=== PATIENT | male | born 1955 | race Caucasian/White ===

== ENCOUNTER 2019-10-12 13:27 | Outpatient (CLI) | payer BC, SELFPAY ==
--- NOTE | 2019-10-12 13:43 | XR_ITS ---
WS: [id number] Chest 2 views, 10/12/2019 Clinical Data: COPD Comparison: PA and lateral chest, 04/28/2018. Findings: No nodules, masses or effusions are seen. The heart is normal. The pulmonary vascularity is not increased. No pneumonia or pneumothorax is seen. There is an azygos lobe of the lung as an incid ental finding. The aortic arch and descending aorta show tortuosity and calcification. XR/XR chest 2V* [id number] Impression: Atherosclerosis.
== END 2019-10-12 13:28 | disposition home or self-care (01) ==
LOC: RAD 13:40
PROVIDERS: Family Provider Family Medicine; PCP Family Medicine; Visit Provider Nurse Practitioner
DX: J44.9 Chronic obstructive pulmonary disease, unspecified (principal)
CPT/HCPCS: 71046

== ENCOUNTER 2020-06-20 13:27 | Outpatient (CLI) | payer BC, SELFPAY ==
--- NOTE | 2020-06-20 13:35 | XR_ITS ---
WS: [id number] Exam: XR chest 2V* [id number] Date/Time of Exam: 06/20/2020 1:37 PM Reason For Exam: COPD Comparison 10/12/2019. The lungs are hyperinflated and clear. Cardiomediastinal structures are unremarkable. Atherosclerotic plaquing of the thoracic aorta. No pleural effusions. Regional bony elements are intact. XR/XR chest 2V* [id number] IMPRESSION: 1. No acute cardiopulmonary finding. 2. Pulmonary hyperinflation which might indicate obstructive lung disease.
== END 2020-06-20 13:28 | disposition home or self-care (01) ==
PROVIDERS: PCP Family Medicine; Visit Provider Nurse Practitioner
DX: J44.1 Chronic obstructive pulmonary disease with (acute) exacerbation (principal)
CPT/HCPCS: 71046

== ENCOUNTER → 2020-11-14 16:05 | Outpatient (BNVA) | payer BC, SELFPAY | PROVIDERS: PCP Family Medicine; Visit Provider Surgery | DX: Z12.11 Encounter for screening for malignant neoplasm of colon (principal); Z11.52 Encounter for screening for COVID-19 | CPT/HCPCS: 87635 ==

== ENCOUNTER 2020-11-21 06:07 | Day surgery (SDC) | payer MEDICARE, SELFPAY ==
[2020-11-18 10:33] VITALS: BMI 27.1
[2020-11-21 06:15] VITALS: BP 183/94; PULSE 67; RESP 18; TEMP 36.1; O2SAT 96
[2020-11-21] MEDS: sodium chloride 0.9% 1,000 ML 30 ML IV (06:34)
--- NOTE | 2020-11-21 06:37 | ANES.PREANE2 ---
Pre-Anesthetic Assessment Pre-Anesthetic Assessment: Height/Weight: Height 1.83 m Weight 90.718 kg Temp Pulse Resp BP Pulse Ox 97.0 F L 67 18 183/94 96 11/21/20 06:15 11/21/20 06:15 11/21/20 06:15 11/21/20 06:15 11/21/20 06:15 Preop Diagnosis: SCREENING COLONOSCOPY Proposed Procedure: Operation Date: 11/21/20 07:00 Proposed Procedures p Colonoscopy 88713 z12.11(Not Applicable) - Clyde Barr MD Last intake: Intake Last Liquid Date 11/20/20 Last Liquid Time 23:00 Last Solid Date 11/19/20 Last Solid Time 19:00 Social: Social History: No alcohol and No tobacco Exam: Pre-Anes Outpt Exam: alert and oriented x 3 Airway: Submandibular: WNL Cervical ROM: WNL MP: 1 Additional comments: edentulous Pulmonary: Pulmonary: COPD, FELIX and SOB CV/HEM: CV/HEM: HTN : : Chronic renal Insufficiency Hepatic: Hepatic: None reported GI: GI: GERD Metabolic: Metabolic: None reported Musc/skel: Musc/skel: Lower Back Pain, OA/DJD and RA Neuropsych: Neuropsych: Anxiety Anesthetic Plan: ASA status: 3 Anesthesia: Anesthesia Evaluation and MAC Risk of > 500 ml blood loss (7ml/kg in children): No Meds/Allergies Current Medications: Current Medications Generic Name Dose Route Start Last Admin Trade Name Freq PRN Reason Stop Dose Admin Sodium Chloride 1,000 mls @ 30 ml s/hr 11/21/20 06:15 11/21/20 06:34 Sodium Chloride 0.9% IV 30 mls/hr .Q24H PRACHI Administration Data Anesthesia Cardiac Studies: No Data to Display
--- NOTE | 2020-11-21 06:48 | W.PM.OPSFHP ---
Same Day Surgery H&P Indication for Procedure/HPI DATE OF PROCEDURE: November 21, 2020 CHIEF COMPLAINT/INDICATIONFOR SURGICAL PROCEDURE: Screening Colonoscopy PREOP DIAGNOSIS: SCREENING COLONOSCOPY PLANNED PROCEDRUE: Operation Date: 11/21/20 07:00 Proposed Procedures p Colonoscopy 71630 z12.11(Not Applicable) - Clyde Barr MD This is a pleasant 65 years old gentleman well-known from previous clinical encounter to me. Patient last colonoscopy was done back in 2009 and was reported as normal per his description and he comes today as a referral for screening colonoscopy. Patient denies any bleeding per rectum and he had lost about 25 pounds since last time I have seen him. ROS All systems have been reviewed negative except as per the above or per problem list Medications/Allergies* Home Medications Medication Instructions Recorded Confirmed Type albuterol sulfate 90 mcg/actuation 1 inh INHALATION QID 10/28/20 11/18/20 History aerosol inhaler cyclobenzaprine 10 mg tablet 10 mg PO TID 10/28/20 11/18/20 History fluticasone 500 mcg-salmeterol 50 1 inh INHALATION BID 10/28/20 11/18/20 History mcg/dose blistr powdr for inhalation gabapentin 300 mg capsule 300 mg PO BID 10/28/20 11/18/20 History hydrocodone 10 mg-acetaminophen 1 tab PO Q6H PRN 10/28/20 11/18/20 History 325 mg tablet omeprazole 20 mg capsule,delayed 20 mg PO DAILY 10/28/20 11/18/20 History release tamsulosin 0.4 mg capsule 0.8 mg PO DAILY cap 10/28/20 11/18/20 History Allergies/Adverse Reactions Allergy/AdvReac Type Severity Reaction Status Date / Time aspirin Allergy Unknown Verified 11/21/20 06:55 cefuroxime [From Ceftin] Allergy Unknown Verified 11/21/20 06:55 Penicillins Allergy Unknown Verified 11/21/20 06:55 Current Medications: Generic Name Dose Route Start Last Admin Trade Name Freq PRN Reason Stop Dose Admin Sodium Chloride 1,000 mls @ 30 mls/hr 11/21/20 06:15 11/21/20 06:34 Sodium Chloride 0.9% IV 30 mls/hr .Q24H PRACHI Administration Pertinent Exam Findings alert, oriented x 3, clear to auscultation bilaterally, regular rate & rhythm and procedure specific exam findings (Abdominal examination nontender nondistended soft and presence of umbilical) Presence of umbilical hernia Recommendations Surgery/Procedure today (Colonoscopy with possible biopsy and possible polypectomy) Other Plans: Plan of care; After thorough history and physical examination and reviewing the chart, plan to perform screening colonoscopy. I discussed with the patient in details the risks,benefits,alternatives and indications.The risk of aspiration, bleeding, soft tissue injury, perforation of the colon and other potential concomitant complications were explained to the patient in details,also the potential need for Laproscoy/Laparotomy to repair any related complications including but not limited to colectomy and or Closotomy.The patient understood this well and did agree to proceed. Rationale was carefully and clearly discussed with the patient.Appropriate informed consent have been reviewed and signed All questions have been answered and all concerns have been addressed to patient's satisfaction. Verbal and written Instructions were given to the patient for colonoscopy prep Coding Level of Care Code Acute [employer] for Yasemin Brandt
[2020-11-21 07:19] VITALS: BP 93/53; PULSE 66; RESP 18; TEMP 36.2; O2SAT 95
[2020-11-21 07:33] VITALS: BP 143/97; PULSE 59; RESP 18; O2SAT 97
--- NOTE | 2020-11-21 13:09 | ANE.PACU2 ---
Inpatient post-anesthesia follow up: Airway intact: Yes Vital signs: Temperature 97.2 F Pulse Rate 59 Respiratory Rate 18 Blood Pressure 143/97 Pulse Oximetry 97 Oxygen Delivery Me thod Room Air Oxygen Flow Rate Fraction of Inspir ed Oxygen Hydration adequate: Yes Nausea and vomiting: No Pain level: 1 Mental status: Baseline
== END 2020-11-21 07:48 | disposition home or self-care (01) ==
PROVIDERS: PCP Family Medicine; Visit Provider Surgery
PROC: 0DJD8ZZ Inspection of Lower Intestinal Tract, Via Natural or Artificial Opening Endoscopic (ICD-10-PCS; CPT 45378; principal; 2020-11-21 07:00)
DX: Z12.11 Encounter for screening for malignant neoplasm of colon (principal); K57.30 Diverticulosis of large intestine without perforation or abscess without bleeding; J44.9 Chronic obstructive pulmonary disease, unspecified; I10 Essential (primary) hypertension; F41.9 Anxiety disorder, unspecified; M06.9 Rheumatoid arthritis, unspecified
CPT/HCPCS: 45378; 96360; J2704; J7030

== ENCOUNTER 2021-05-26 08:32 | Outpatient (CLI) | payer MEDICARE, SELFPAY ==
--- NOTE | 2021-05-26 08:44 | USCV_ITS ---
Dejan Russel Age: 65 Gender: M : 1955 Exam Date: 05/26/2021 09:13 Ordering Phys: Alcira Guerra MD Technologist: Kylah Mullins Exam Location: [facility] [place]_ Indication: screening AAA HISTORY: Diameter (cm) AP x Transverse x Length Velocity (cm/s) Waveform Prox Aorta: 2.44 x 2.45 x 71.90 Mid Aorta: 2.23 x 2.11 x 71.10 Distal Aorta: 1.90 x 2.16 x 85.10 Right Iliac Prox: 1.09 x 0.97 x 123.40 Left Iliac Prox: 0.97 x 0.94 x 178.80 Stent Prox Landing x x Aneurysmal Sac Max x x Lt Lat Sac Dim Rt Lat Sac Dim Stent Dist Landing x x Right Iliac Stent x x Left Iliac Stent x x Right Renal Art Left Renal Art FINDINGS: Normal Doppler flow velocities in the abdominal aorta Moderate heterogeneous plaques in the left common iliac artery. CONCLUSIONS #1. Normal abdominal aortic dimensions with no evidence of aneurysm. #2. Moderate heterogeneous plaques at the left common iliac artery with less than 60% stenosis. Dr Hermelinda Malik MD [facility] (Electronically Signed) Final Date: 27 May 2021 08:46 S
== END 2021-05-26 08:33 | disposition home or self-care (01) ==
LOC: RAD 08:37
PROVIDERS: PCP Family Medicine; Visit Provider Family Medicine
DX: Z13.6 Encounter for screening for cardiovascular disorders (principal); I70.8 Atherosclerosis of other arteries
CPT/HCPCS: 76706

== ENCOUNTER 2021-06-15 22:45 | Observation (INO) | payer MEDICARE, SELFPAY ==
[2021-06-15 22:51] VITALS: BP 164/84; PULSE 114; RESP 28; TEMP 37.5; O2SAT 92; BMI 29.8
--- NOTE | 2021-06-15 23:08 | XRR_ITS ---
PROCEDURE INFORMATION: Exam: XR Chest Exam date and time: 06/15/2021 11:08 PM Age: 65 years old Clinical indication: Shortness of breath; Patient HX: HX of copd C/O worsening SOB TECHNIQUE: Imaging protocol: XR of the chest. Views: 1 view. COMPARISON: CR XR chest 2V* [id number] 06/20/2020 1:41 PM FINDINGS: Lungs: There is a background of emphysema and pulmonary fibrosis. There are patchy opacities present in the right lower lobe, findings compatible with a right lower lobe pneumonia. Pleural spaces: Unremarkable. No pleural effusion. No pneumothorax. Heart/Mediastinum: Unremarkable. No cardiomegaly. Bones/joints: Unremarkable. XR/XR chest 1V portable [id number] IMPRESSION: Right lower lobe pneumonia. Radiation Dose CTDIVOL = (mGy): DLP = (mGy-cm)
--- NOTE | 2021-06-15 23:56 | ED_ITS ---
HPI - SOB/Dyspnea General: Chief Complaint: Shortness of Breath/Dyspnea Stated Complaint: COPD SOB Time Seen by Provider: 06/15/21 22:58 History of Present Illness: HPI Narrative: 65-year-old male with cough, fever, sputum production and chest pain increasing over the past couple of days. He has a history of COPD. Has had pneumonia before as well, and states it feels like this. He is a nebulizer treatment earlier in the evening which seemed to help some. He does not use home oxygen. MD elicited complaint: shortness of breath, cough and chest pain Pertinent past history: COPD and pneumonia Onset (ago): day(s) Timing: constant and progressively worsening Severity: moderate Exacerbating factors: lying flat, exertion and coughing Relieving factors: oxygen and bronchodilators Known history of: COPD Associated symptoms: Reports chest congestion, chest pain, cough, dizziness and fever(s); Deny abdominal pain, diaphoresis, hemoptysis, nausea, rash or vomiting Treatment prior to arrival: bronchodilator Review of Systems Const: Reports: fever(s); Denies: diaphoresis Card: Reports: chest pain Resp: Reports: chest congestion; Denies: hemoptysis GI: Denies: abdominal pain, nausea or vomiting Neuro: Reports: dizziness [facility] PFSH: Medical History (Updated 06/16/21 @ 02:09 by Tylor Carroll DO) Diverticulosis Physical Exam Const: COMMON NORMALS: patient oriented x3 and alert GENERAL APPEARANCE: ill appearing and frail appearing Eye: COMMON NORMALS: Equal, round and reactive pupils present and EOMs intact bilaterally PUPIL: Yes Equal, round and reactive pupils present Chest: COMMONS NORMALS: normal inspection of the chest Resp: EFFORT & INSPECTION: Yes tachypneic and Yes labored AUSCULTATION: rhonchi and diminished lung sounds Cardio: COMMON NORMALS: regular rhythm and Peripheral pulses 2+ throughout RATE: tachycardic RHYTHM: regular rhythm PERIPHERAL PULSES: Peripheral pulses 2+ throughout GI: COMMON NORMALS: Normal to inspection, nondistended, normoactive bowel sounds present and Soft to palpation PALPATION: Yes Soft to palpation Extremity: COMMON NORMALS: no pedal edema Neuro: COMMON NORMALS: patient oriented x3 SENSORIUM/ORIENTATION: Yes alert Course Consultations: Consultation #1: john Time: 02:06 Vital Signs: Vital signs: Vital Signs Temperature 99.5 F 06/15/21 22:51 Pulse Rate 109 H 06/16/21 00:00 Respiratory Rate 20 H 06/15/21 23:58 Blood Pressure 164/84 06/15/21 22:51 Pulse Oximetry 93 06/15/21 23:58 MDM - SOB/Dyspnea MDM Narrative: Medical decision making narrative: 65-year-old gentleman with cough sputum production fever and shortness of breath. He has a right lower lobe pneumonia on chest x-ray. White blood cell count of 15. Potassium is 3.3 and is repleted here. His creatinine is 1.9. No baseline historically for him here. He had a fever 103 at home. His COVID-19 rapid test is negative. PCR is pending. He evidently is allergic to Ceftin, and penicillins, and therefore received Levaquin in the ER after blood cultures. The patient is actually hypertensive, and with hypoxia, and an increased BNP, sepsis fluid bolus was not given due to concern of potential fluid overload. He will be admitted. D-dimer is 2. Unknown whether this could be pulmonary embolism versus elevation due to the pneumonia itself. Because of decreased renal function, holding on CTA for now. Lab Data: Labs: Lab Results 06/15/21 06/16/21 06/16/21 23:08 00:01 00:01 WBC 15.2 10^3/uL H 10 ^3/uL (4.0-10.0) RBC 4.17 10^6/uL 10^6 /uL (4.1-5.3) Hgb 12.9 g/dL g/dL (11.7-16.6) Hct 38.3 % L % (42.0-52.0) MCV 91.8 fl fl (80-94) MCH 30.9 pg pg (28.0-34.0) MCHC 33.7 g/dL g/dL (30.0-36.0) RDW 13.2 % % (12.1-15.1) Plt Count 229 10^3/cmm 10^3 /cmm (130-400) MPV 10.6 fL H fL (7.4-10.4) Neut % (Auto) 80.9 % % Lymph % (Auto) 7.1 % % [place] % (Auto) 10.8 % % Eos % (Auto) 0.1 % % Baso % (Auto) 0.5 % % Neut # (Auto) 12.29 10^3/uL H 1 0^3/uL (1.8-7.7) Lymph # (Auto) 1.1 10^3/uL 10^3/ uL (0.8-4.8) [place] # (Auto) 1.6 10^3/uL H 10^ 3/uL (0.2-0.9) Eos # (Auto) 0.0 10^3/uL 10^3/ uL (0.0-0.8) Baso # (Auto) 0.1 10^3/uL 10^3/ uL (0.0-0.1) Nucleated RBC % (a uto) 0 % % Nucleated RBCs # 0.0 /100WBC /100W BC D-Dimer 2.09 ug/mIFEU H u g/mIFEU (0-0.59) Specimen Type Arterial Sample Site Radial, left ABG pH 7.50 H (7.35-7.45) ABG pCO2 28.7 mmHg L mmHg (35-45) ABG pO2 60.2 mmHg L mmHg (80.0-100.0) ABG HCO3 22.4 mmol/L mmol/ L (22-26) ABG Base Excess 0.2 mmol/L mmol/L (-2.0-2.0) Wilber Test Pos Hematocrit 40.5 % L % (42-52) Hgb O2 Saturation 92.5 % L % (95-100) Carboxyhemoglobin 1.0 %THgb %THgb (0.4-20.1) Methemoglobin 1.1 % % (0.4-1.5) Total Hemoglobin 13.2 g/dL L g/dL (14-18) O2 Delivery Device Nc O2 Liters/Min 3.0 % % Political Science Instructor ID ellpe Sodium Potassium Chloride Carbon Dioxide Anion Gap BUN Creatinine GFR Calculation Glucose Calculated Osmolal ity Lactic Acid Calcium Total Bilirubin AST ALT Alkaline Phosphata se Troponin T Baselin e Troponin T 120 Min [place] Troponin T NT-Pro-B Natriuret Pep Total Protein Albumin Globulin SARS-CoV-2 Ag (Rap id) 06/16/21 06/16/21 06/16/21 00:01 00:01 00:01 WBC RBC Hgb Hct MCV MCH MCHC RDW Plt Count MPV Neut % (Auto) Lymph % (Auto) [place] % (Auto) Eos % (Auto) Baso % (Auto) Neut # (Auto) Lymph # (Auto) [place] # (Auto) Eos # (Auto) Baso # (Auto) Nucleated RBC % (a uto) Nucleated RBCs # D-Dimer Specimen Type Sample Site ABG pH ABG pCO2 ABG pO2 ABG HCO3 ABG Base Excess Wilber Test Hematocrit Hgb O2 Saturation Carboxyhemoglobin Methemoglobin Total Hemoglobin O2 Delivery Device O2 Liters/Min Political Science Instructor ID Sodium 139 mmol/L mmol/L (136-145) Potassium 3.3 mmol/L L mmol /L (3.5-5.1) Chloride 103 mmol/L mmol/L (98-107) Carbon Dioxide 21 mmol/L L mmol/ L (22-29) Anion Gap 18.3 (5-19) BUN 34 mg/dL H mg/dL (8-23) Creatinine 1.9 mg/dL H mg/dL (0.7-1.2) GFR Calculation 35.5 mL/min L mL/ min (90-130) Glucose 116 mg/dL H mg/dL (65-115) Calculated Osmolal ity 297 mOsm/kg H mOs m/kg (285-295) Lactic Acid 1.7 mmol/L mmol/L (0.5-2.2) Calcium 9.9 mg/dL mg/dL (8.5-10.5) Total Bilirubin 0.9 mg/dL mg/dL (0.15-1.2) AST 27 U/L U/L (0-40) ALT 20 U/L U/L (0-41) Alkaline Phosphata se 65 IU/L IU/L (40-130) Troponin T Baselin e 48 ng/L H ng/L (0-15) Troponin T 120 Min [place] Troponin T NT-Pro-B Natriuret Pep 1228 pg/mL H pg/m L (0-125) Total Protein 7.8 g/dL g/dL (6.6-8.7) Albumin 4.0 g/dL g/dL (3.5-5.2) Globulin 3.8 g/dL g/dL (1.3-4.6) SARS-CoV-2 Ag (Rap id) 06/16/21 06/16/21 00:20 01:30 WBC RBC Hgb Hct MCV MCH MCHC RDW Plt Count MPV Neut % (Auto) Lymph % (Auto) [place] % (Auto) Eos % (Auto) Baso % (Auto) Neut # (Auto) Lymph # (Auto) [place] # (Auto) Eos # (Auto) Baso # (Auto) Nucleated RBC % (a uto) Nucleated RBCs # D-Dimer Specimen Type Sample Site ABG pH ABG pCO2 ABG pO2 ABG HCO3 ABG Base Excess Wilber Test Hematocrit Hgb O2 Saturation Carboxyhemoglobin Methemoglobin Total Hemoglobin O2 Delivery Device O2 Liters/Min Political Science Instructor ID Sodium Potassium Chloride Carbon Dioxide Anion Gap BUN Creatinine GFR Calculation Glucose Calculated Osmolal ity Lactic Acid Calcium Total Bilirubin AST ALT Alkaline Phosphata se Troponin T Baselin e Troponin T 120 Min [place] 42.48 ng/L H ng/L (0-15) Delta Troponin T -5.52 ABS# L ABS# (0-10) NT-Pro-B Natriuret Pep Total Protein Albumin Globulin SARS-CoV-2 Ag (Rap id) Negative (Negative) Discharge Plan Discharge Patient Disposition: Admitted As Inpatient Clinical Impression: Community acquired pneumonia Qualifiers: Laterality: right Lung location: lower lobe of lung Qualified Code(s): J18.9 - Pneumonia, unspecified organism Respiratory failure with hypoxia Qualifiers: Chronicity: acute Qualified Code(s): J96.01 - Acute respiratory failure with hypoxia Condition: Fair Coding Level of Care Code ED [place] for [facility] Fwd Exam Detailed
[2021-06-15 23:58] VITALS: PULSE 113; RESP 20; O2SAT 93
[2021-06-15] MEDS: ipratropium-albuterol 3 mL Neb INHALATION (23:58)
[2021-06-16] VITALS (7 sets, daily range): BP systolic 141–181; BP diastolic 80–88; PULSE 91–109; RESP 17–24; TEMP 36.4–37.4; O2SAT 92–96
[2021-06-16 00:03] LABS: ABG PCO2 28.7 mmHg (35-45); Arterial Blood Gas Hematocrit 40.5 % (42-52); Base Excess ABG 0.2 mmol/L (-2.0-2.0); Blood Gas Allen Test Pos; Blood Gas Sample Site Radial, left; Blood Gas Sample Type Arterial; HCO3 ABG 22.4 mmol/L (22-26); HGB O2 Sat 92.5 % (95-100); Methemoglobin 1.1 % (0.4-1.5); Oxygen Device NC; PO2 ABG 60.2 mmHg (80.0-100.0); Total Hemoglobin 13.2 g/dL (14-18)
[2021-06-16] MEDS: ondansetron 2 mg/ML SDV 2 mL 4 MG IVP (00:16)
[2021-06-16 00:58] LABS: Basophils # 0.1 10^3/uL (0.0-0.1); Basophils % 0.5 %; Eosinophils % 0.1 %; Hematocrit 38.3 % (42.0-52.0); Hemoglobin 12.9 g/dL (11.7-16.6); Lymphocytes # 1.1 10^3/uL (0.8-4.8); Lymphocytes % 7.1 %; Mean Corpuscular HGB Conc 33.7 g/dL (30.0-36.0); Mean Corpuscular Hemoglobin 30.9 pg (28.0-34.0); Mean Corpuscular Volume 91.8 fl (80-94); Mean Platelet Volume 10.6 fL (7.4-10.4); Monocytes # 1.6 10^3/uL (0.2-0.9); Monocytes % 10.8 %; Neutrophils # 12.29 10^3/uL (1.8-7.7); Neutrophils % 80.9 %; Nucleated Red Blood Cells % 0 %; Platelet Count 229 10^3/cmm (130-400); Red Blood Count 4.17 10^6/uL (4.1-5.3); Red Cell Distribution Width 13.2 % (12.1-15.1); White Blood Count 15.2 10^3/uL (4.0-10.0)
[2021-06-16 01:07] LABS: D Dimer 2.09 ug/mIFEU (0-0.59)
[2021-06-16 01:09] LABS: Lactic Sepsis W/Reflex 1.7 mmol/L (0.5-2.2)
--- NOTE | 2021-06-16 01:09 | ECG_ITS ---
[facility] Test Date: 2021-06-16 Pat Name: Russel Wylie Department: Room: Gender: Male Floor Sander: : 1955 Requested By: Tylor Tracy Order Number: [id number] Ilene MD: Brittney Gomez M.D. Measurements Intervals [place] Rate: 116 P: 61 CO: 156 QRS: 65 QRSD: 79 T: 45 QT: 321 QTc: 446 Interpretive Statements SINUS TACHYCARDIA WITH OCCASIONAL SUPRAVENTRICULAR PREMATURE COMPLEXES NONSPECIFIC T-WAVE ABNORMALITY ABNORMAL RHYTHM ECG No previous ECG available for comparison Electronically Signed On 06-17-2021 12:59:22 LEAD INFRASTRUCTURE ARCHITECT by Brittney Gomez M.D. [email or web address]
[2021-06-16 01:10] LABS: SARS Covid-2 Antigen Negative (Negative)
[2021-06-16 01:11] LABS: Troponin(5th) Baseline 48 ng/L (0-15)
[2021-06-16] MEDS: morphine 4 mg/mL SDV 1 mL IVP (01:16)
[2021-06-16] MEDS: levofloxacin-dextrose 5 % 750 MG/150 ML PREMIX 100 MG IV (01:17)
[2021-06-16 01:20] LABS: Alanine Aminotransferase 20 U/L (0-41); Alkaline Phosphatase 65 IU/L (40-130); Anion Gap 18.3 (5-19); Aspartate Amino Transferase 27 U/L (0-40); Blood Urea Nitrogen 34 mg/dL (8-23); Calcium 9.9 mg/dL (8.5-10.5); Carbon Dioxide 21 mmol/L (22-29); Chloride 103 mmol/L (98-107); Globulin 3.8 g/dL (1.3-4.6); Glomerular Filtration Rate 35.5 mL/min (90-130); Glucose 116 mg/dL (65-115); NT Pro B Type Natriuretic Pept 1228 pg/mL (0-125); Osmolality Calculated 297 mOsm/kg (285-295); Potassium 3.3 mmol/L (3.5-5.1); Sodium 139 mmol/L (136-145); Total Bilirubin 0.9 mg/dL (0.15-1.2); Total Protein 7.8 g/dL (6.6-8.7)
[2021-06-16 02:11] LABS: Troponin 5 2HR 42.48 ng/L (0-15)
[2021-06-16 02:14] LABS: Troponin 5 2HR Delta -5.52 ABS# (0-10)
[2021-06-16] MEDS: sodium chloride 0.9% 1,000 ML 125 ML IV (04:07)
[2021-06-16] MEDS: HYDROcodone-acetaminophen 10-325 mg Tablet 1 TAB PO (04:07)
[2021-06-16 06:06] LABS: NT Pro B Type Natriuretic Pept 1741 pg/mL (0-125)
--- NOTE | 2021-06-16 06:40 | P.HP_ITS ---
Providers/Chief Complaint Admitting Physician: Ishan Osborn Primary Care Provider: Alcira Guerra MD Chief Complaint: COPD SOB History of Present Illness Russel Wylie is a 65 year old male with past medical history of COPD who is presenting with complaints of cough, productive with yellow mucus, shortness of breath, fever and chills. He reports pain in the right side of the chest when he coughs. The symptoms started 3 to 4 days ago. He reports similar symptoms several years ago when he was diagnosed with pneumonia. Today his chest x-ray reviewed right-sided pneumonia. He denies palpitations, dizziness or lightheadedness, nausea vomiting, abdominal pain, diarrhea. Review of Systems General: Reports: 10 or more systems reviewed and unremarkable except in HPI and below Medications/Allergies Home Medications Medication Instructions Recorded Confirmed Last Taken Type albuterol sulfate 90 mcg/actuation 1 inh INHALATION QID 10/28/20 06/16/21 06/15/21 History aerosol inhaler cyclobenzaprine 10 mg tablet 10 mg PO TID 10/28/20 06/16/21 06/15/21 History fluticasone 500 mcg-salmeterol 50 1 inh INHALATION BID 10/28/20 06/16/21 06/15/21 History mcg/dose blistr powdr for inhalation gabapentin 300 mg capsule 300 mg PO BID 10/28/20 06/16/21 06/15/21 History hydrocodone 10 mg-acetaminophen 1 tab PO Q6H PRN 10/28/20 06/16/21 06/15/21 History 325 mg tablet omeprazole 20 mg capsule,delayed 20 mg PO DAILY 10/28/20 06/16/21 06/15/21 History release tamsulosin 0.4 mg capsule 0.8 mg PO DAILY cap 10/28/20 06/16/21 06/15/21 History Allergies Allergy/AdvReac Type Severity Reaction Status Date / Time aspirin Allergy Unknown Verified 11/21/20 06:55 cefuroxime [From Ceftin] Allergy Unknown Verified 11/21/20 06:55 Penicillins Allergy Unknown Verified 11/21/20 06:55 PFSH Acute PFSH: Medical History (Updated 06/16/21 @ 06:43 by Ishan Osborn) Diverticulosis Vitals/I&O/Wt Last Vital Signs Temp 97.6 F 06/16/21 05:34 Pulse 99 06/16/21 05:34 Resp 17 06/16/21 05:34 BP 181/82 06/16/21 05:34 Pulse Ox 95 06/16/21 05:34 06/15/21 06/15/21 06/16/21 14:59 22:59 06:59 Intake Total 150 / 150 Balance 150 / 150 Weight last 48 hrs Weight 99.79 kg Weight 99.79 kg Physical Exam Narrative: EXAM NARRATIVE: The patient is awake alert oriented. No acute distress. Mood and affect are appropriate. Responses are adequate. Skin is warm and dry. Moist mucous memories Eyes PERRL, extraocular muscle intact Normal speech. Neck is supple. No JVD Lungs right-sided crackles. No wheezes. No respiratory distress Heart S1, S2, regular Abdomen soft, nontender, bowel sounds are present Extremities no edema cyanosis or calf tenderness bilaterally Neuro exam is nonfocal. Data : 06/16/21 00:01 06/16/21 00:01 Other Labs: Laboratory Results WBC 15.2 10^3/uL (4.0-10.0) H 06/16/21 00:01 RBC 4.17 10^6/uL (4.1-5.3) 06/16/21 00:01 Hgb 12.9 g/dL (11.7-16.6) 06/16/21 00:01 Hct 38.3 % (42.0-52.0) L 06/16/21 00:01 MCV 91.8 fl (80-94) 06/16/21 00:01 MCH 30.9 pg (28.0-34.0) 06/16/21 00:01 MCHC 33.7 g/dL (30.0-36.0) 06/16/21 00:01 RDW 13.2 % (12.1-15.1) 06/16/21 00:01 Plt Count 229 10^3/cmm (130-400) 06/16/21 00:01 MPV 10.6 fL (7.4-10.4) H 06/16/21 00:01 Neut % (Auto) 80.9 % 06/16/21 00:01 Lymph % (Auto) 7.1 % 06/16/21 00:01 [place] % (Auto) 10.8 % 06/16/21 00:01 Eos % (Auto) 0.1 % 06/16/21 00:01 Baso % (Auto) 0.5 % 06/16/21 00:01 Neut # (Auto) 12.29 10^3/uL (1.8-7.7) H 06/16/21 00:01 Lymph # (Auto) 1.1 10^3/uL (0.8-4.8) 06/16/21 00:01 [place] # (Auto) 1.6 10^3/uL (0.2-0.9) H 06/16/21 00:01 Eos # (Auto) 0.0 10^3/uL (0.0-0.8) 06/16/21 00:01 Baso # (Auto) 0.1 10^3/uL (0.0-0.1) 06/16/21 00:01 Nucleated RBC % (auto) 0 % 06/16/21 00:01 Nucleated RBCs # 0.0 /100WBC 06/16/21 00:01 D-Dimer 2.09 ug/mIFEU (0-0.59) H 06/16/21 00:01 Specimen Type Arterial 06/15/21 23:08 Sample Site Radial, left 06/15/21 23:08 ABG pH 7.50 (7.35-7.45) H 06/15/21 23:08 ABG pCO2 28.7 mmHg (35-45) L 06/15/21 23:08 ABG pO2 60.2 mmHg (80.0-100.0) L 06/15/21 23:08 ABG HCO3 22.4 mmol/L (22-26) 06/15/21 23:08 ABG Base Excess 0.2 mmol/L (-2.0-2.0) 06/15/21 23:08 Wilber Test Pos 06/15/21 23:08 Hematocrit 40.5 % (42-52) L 06/15/21 23:08 Hgb O2 Saturation 92.5 % (95-100) L 06/15/21 23:08 Carboxyhemoglobin 1.0 %THgb (0.4-20.1) 06/15/21 23:08 Methemoglobin 1.1 % (0.4-1.5) 06/15/21 23:08 Total Hemoglobin 13.2 g/dL (14-18) L 06/15/21 23:08 O2 Delivery Device Nc 06/15/21 23:08 O2 Liters/Min 3.0 % 06/15/21 23:08 Aviation Electronics Technician ID rigo 06/15/21 23:08 Sodium 139 mmol/L (136-145) 06/16/21 00:01 Potassium 3.3 mmol/L (3.5-5.1) L 06/16/21 00:01 Chloride 103 mmol/L (98-107) 06/16/21 00:01 Carbon Dioxide 21 mmol/L (22-29) L 06/16/21 00:01 Anion Gap 18.3 (5-19) 06/16/21 00:01 BUN 34 mg/dL (8-23) H 06/16/21 00:01 Creatinine 1.9 mg/dL (0.7-1.2) H 06/16/21 00:01 GFR Calculation 35.5 mL/min (90-130) L 06/16/21 00:01 Glucose 116 mg/dL (65-115) H 06/16/21 00:01 Calculated Osmolality 297 mOsm/kg (285-295) H 06/16/21 00:01 Lactic Acid 1.7 mmol/L (0.5-2.2) 06/16/21 00:01 Calcium 9.9 mg/dL (8.5-10.5) 06/16/21 00:01 Total Bilirubin 0.9 mg/dL (0.15-1.2) 06/16/21 00:01 AST 27 U/L (0-40) 06/16/21 00:01 ALT 20 U/L (0-41) 06/16/21 00:01 Alkaline Phosphatase 65 IU/L (40-130) 06/16/21 00:01 Troponin T Baseline 48 ng/L (0-15) H 06/16/21 00:01 Troponin T 120 Minute 42.48 ng/L (0-15) H 06/16/21 01:30 Delta Troponin T -5.52 ABS# (0-10) L 06/16/21 01:30 NT-Pro-B Natriuret Pep 1741 pg/mL (0-125) H 06/16/21 05:11 Total Protein 7.8 g/dL (6.6-8.7) 06/16/21 00:01 Albumin 4.0 g/dL (3.5-5.2) 06/16/21 00:01 Globulin 3.8 g/dL (1.3-4.6) 06/16/21 00:01 SARS-CoV-2 Ag (Rapid) Negative (Negative) 06/16/21 00:20 Impressions Chest X-Ray 06/15/21 23:08 IMPRESSION: Right lower lobe pneumonia. Radiation Dose CTDIVOL = (mGy): DLP = (mGy-cm) Micro: Microbiology 06/16/21 00:10 Blood Culture - Preliminary Blood SPECIMEN COLLECTED 06/16/21 00:01 Blood Culture - Preliminary Blood SPECIMEN COLLECTED A&P Assessment and plan (1) Community acquired pneumonia: Status: Acute Qualifiers: Laterality: right Lung location: lower lobe of lung Qualified Code(s): J18.9 - Pneumonia, unspecified organism (2) Respiratory failure with hypoxia: Status: Acute Qualifiers: Chronicity: acute Qualified Code(s): J96.01 - Acute respiratory failure with hypoxia (3) Hypertension: Status: Acute Additional A&P Information Hypoxia probably secondary to pneumonia on top of chronic emphysema. We will start the patient on Levaquin. He will receive respiratory treatments and supplemental oxygen. We will continue monitoring his CBC. Hypertension. Will order as needed labetalol. He might need initiation of maintenance therapy. Elevated BNP. Does not have history of CHF. Will monitor. Verbal order 2D echo. Elevated creatinine. He has history of CKD. Baseline is unknown. We will continue monitoring. Will avoid nephrotoxic medications. History of BPH. We will continue his home medication. History of GERD. We will continue his home medication. DVT prophylaxis. Heparin. CODE STATUS. He wants to be full code. The plan of care was discussed with the patient. He verbalized understanding and agreement. Attestations Medical Necessity Statement*: Based on my assessment of patient's current condition, diagnosis and plan of care I expect that the patient will spend more than 2 midnights in the hospital. Coding Level of Care Code Acute Cab Supervisor for Yasemin Brandt Diagnoses Community acquired pneumonia J18.9 Laterality: right Lung location: lower lobe of lung Respiratory failure with hypoxia J96.01 Chronicity: acute Hypertension I10
[2021-06-16 07:28] LABS: Troponin 5 6HR 22.75 ng/L (0-15)
--- NOTE | 2021-06-16 08:27 | PC.NURSE ---
Patient stated he did not want any of the medication from the hospital d/t cost. He cannot afford it. Stated he wants to go home.
[2021-06-16] MEDS: atenolol 50 mg Tablet 100 MG PO (11:33)
--- NOTE | 2021-06-16 13:22 | PM.DCS ---
Discharge Providers Date of Admission: 06/16/21 02:12 Date of Discharge: June 16, 2021 Attending Provider at Admission: Ishan Osborn Attending Provider at Discharge: Stewart Rodarte MD Primary Care Provider: Alcira Guerra MD Diagnoses at Discharge Discharge Diagnosis (1) Community acquired pneumonia: Status: Acute Qualifiers: Laterality: right Lung location: lower lobe of lung Qualified Code(s): J18.9 - Pneumonia, unspecified organism (2) Respiratory failure with hypoxia: Status: Acute Qualifiers: Chronicity: acute Qualified Code(s): J96.01 - Acute respiratory failure with hypoxia (3) Hypertension: Status: Acute Reason for Visit Reason for Visit: COPD SOB Hospital Course Hospital Course This is a 65-year-old male with a past medical history of COPD who presents [facility] due to shortness of breath, cough, fevers and chills Patient was admitted to [facility] for community-acquired pneumonia, right lower lobe pneumonia, with underlying emphysema, history of COPD, he received inpatient antibiotic treatment, not requiring oxygen during his hospitalization, however patient wanted to be discharged home. I advised patient that he would clinically benefit from another 24 hours of hospitalization for close monitoring, however patient adamantly declined, wanted to be discharged home. Discussed morbidity and mortality associated with pneumonia, acute respiratory failure, he voiced understanding, all questions answered, declined further admission. Discharged home on a prednisone burst, Levaquin, inhaler therapy, with close follow-up as outpatient with primary care During his hospitalization his rapid Covid was negative, Covid PCR was pending, advised to continue to self isolate, socially distance, until his Covid PCR comes back negative, he has not been vaccinated for COVID-19 No known history of CHF, denies chest pain, did have elevated BNP, has mild radiographic evidence of pulmonary edema, he refused Lasix, I have recommended cardiac echocardiogram, he has refused to stay in the hospital until it can be completed. Follow-up with primary care provider as outpatient for consideration of pursuing echocardiogram and evaluation of heart failure. Discussed morbidity mortality associated with delayed diagnosis, he voiced understanding, all questions answered, wanted to be discharged home. On admission patient was noted to have a creatinine 1.9, unknown underlying renal failure, I have advised of further work-up, patient is declined to stay as inpatient, advised to follow-up with primary care provider recheck renal function in 1 to 2 weeks Patient had elevated troponins during his hospitalization, no significant delta troponin, no complaints of chest pain complaints, EKG showing sinus tachycardia with nonspecific ST T wave changes, I have advised for further evaluation as inpatient, however patient has declined, and I advised of the risks associated, morbidity and mortality associated, he voiced understanding, declined intervention, discharge home, close follow-up with primary care provider as outpatient Physical Exam Const: COMMON NORMALS: no acute distress and patient oriented x3 Resp: COMMON NORMALS: normal respiratory effort, No retractions and No use of accessory muscles AUSCULTATION: wheezes Cardio: COMMON NORMALS: regular rate, regular rhythm, S1 normal heart sound present and S2 normal heart sound present RATE: regular rate RHYTHM: regular rhythm HEART SOUNDS: S1 normal heart sound present and S2 normal heart sound present GI: COMMON NORMALS: Normal to inspection, nondistended, normoactive bowel sounds present, Soft to palpation and non-tender PALPATION: Yes Soft to palpation Extremity: COMMON NORMALS: no pedal edema Neuro: COMMON NORMALS: patient oriented x3 Psych: COMMON NORMALS: mental status grossly normal Discharge Data Data Completed and Pending: Completed Studies During Hospitalization Category Date Time Status XR chest 1V michelle ble [id number] Urgent Exams 06/15/21 23:08 Completed Pending at discharge Category Date Time Status Basic Metabolic P jorge AM LABS Lab 06/17/21 04:00 Ordered Blood Culture Sta t Lab 06/15/21 23:08 Results Complete Blood Co unt w/Auto AM LABS Lab 06/17/21 04:00 Ordered Coronavirus Test [facility] Lab 06/16/21 00:20 Received Magnesium AM LABS Lab 06/17/21 04:00 Ordered Sputum Culture an d Gram Stain Stat Lab 06/15/21 23:08 Uncollected CV. echo complete * [id number] Routine Ultrasound 06/17/21 07:00 Ordered Labs from last 24 hours 06/16/21 06/16/21 06/16/21 06:56 05:11 01:30 WBC RBC Hgb Hct MCV MCH MCHC RDW Plt Count MPV Neut % (Auto) Lymph % (Auto) [place] % (Auto) Eos % (Auto) Baso % (Auto) Neut # (Auto) Lymph # (Auto) [place] # (Auto) Eos # (Auto) Baso # (Auto) Nucleated RBC % (a uto) Nucleated RBCs # D-Dimer Specimen Type Sample Site ABG pH ABG pCO2 ABG pO2 ABG HCO3 ABG Base Excess Wilber Test Hematocrit Hgb O2 Saturation Carboxyhemoglobin Methemoglobin Total Hemoglobin O2 Delivery Device O2 Liters/Min Wallpaper Consultant ID Sodium Potassium Chloride Carbon Dioxide Anion Gap BUN Creatinine GFR Calculation Glucose Calculated Osmolal ity Lactic Acid Calcium Total Bilirubin AST ALT Alkaline Phosphata se Troponin T Baselin e Troponin T 120 Min [place] 42.48 H Delta Troponin T -5.52 L Troponin T Hi Sens 6Hr 22.75 H Troponin T Hi Sens 6Hr Delta -25.25 L NT-Pro-B Natriuret Pep 1741 H Total Protein Albumin Globulin Nasal/Oral COVID-1 9 PCR SARS-CoV-2 Ag (Rap id) 06/16/21 06/16/21 06/16/21 00:20 00:20 00:01 WBC RBC Hgb Hct MCV MCH MCHC RDW Plt Count MPV Neut % (Auto) Lymph % (Auto) [place] % (Auto) Eos % (Auto) Baso % (Auto) Neut # (Auto) Lymph # (Auto) [place] # (Auto) Eos # (Auto) Baso # (Auto) Nucleated RBC % (a uto) Nucleated RBCs # D-Dimer Specimen Type Sample Site ABG pH ABG pCO2 ABG pO2 ABG HCO3 ABG Base Excess Wilber Test Hematocrit Hgb O2 Saturation Carboxyhemoglobin Methemoglobin Total Hemoglobin O2 Delivery Device O2 Liters/Min Wallpaper Consultant ID Sodium Potassium Chloride Carbon Dioxide Anion Gap BUN Creatinine GFR Calculation Glucose Calculated Osmolal ity Lactic Acid Calcium Total Bilirubin AST ALT Alkaline Phosphata se Troponin T Baselin e 48 H Troponin T 120 Min [place] Delta Troponin T Troponin T Hi Sens 6Hr Troponin T Hi Sens 6Hr Delta NT-Pro-B Natriuret Pep Total Protein Albumin Globulin Nasal/Oral COVID-1 9 PCR Pending SARS-CoV-2 Ag (Rap id) Negative 06/16/21 06/16/21 06/16/21 00:01 00:01 00:01 WBC RBC Hgb Hct MCV MCH MCHC RDW Plt Count MPV Neut % (Auto) Lymph % (Auto) [place] % (Auto) Eos % (Auto) Baso % (Auto) Neut # (Auto) Lymph # (Auto) [place] # (Auto) Eos # (Auto) Baso # (Auto) Nucleated RBC % (a uto) Nucleated RBCs # D-Dimer 2.09 H Specimen Type Sample Site ABG pH ABG pCO2 ABG pO2 ABG HCO3 ABG Base Excess Wilber Test Hematocrit Hgb O2 Saturation Carboxyhemoglobin Methemoglobin Total Hemoglobin O2 Delivery Device O2 Liters/Min Wallpaper Consultant ID Sodium 139 Potassium 3.3 L Chloride 103 Carbon Dioxide 21 L Anion Gap 18.3 BUN 34 H Creatinine 1.9 H GFR Calculation 35.5 L Glucose 116 H Calculated Osmolal ity 297 H Lactic Acid 1.7 Calcium 9.9 Total Bilirubin 0.9 AST 27 ALT 20 Alkaline Phosphata se 65 Troponin T Baselin e Troponin T 120 Min [place] Delta Troponin T Troponin T Hi Sens 6Hr Troponin T Hi Sens 6Hr Delta NT-Pro-B Natriuret Pep 1228 H Total Protein 7.8 Albumin 4.0 Globulin 3.8 Nasal/Oral COVID-1 9 PCR SARS-CoV-2 Ag (Rap id) 06/16/21 06/15/21 00:01 23:08 WBC 15.2 H RBC 4.17 Hgb 12.9 Hct 38.3 L MCV 91.8 MCH 30.9 MCHC 33.7 RDW 13.2 Plt Count 229 MPV 10.6 H Neut % (Auto) 80.9 Lymph % (Auto) 7.1 [place] % (Auto) 10.8 Eos % (Auto) 0.1 Baso % (Auto) 0.5 Neut # (Auto) 12.29 H Lymph # (Auto) 1.1 [place] # (Auto) 1.6 H Eos # (Auto) 0.0 Baso # (Auto) 0.1 Nucleated RBC % (a uto) 0 Nucleated RBCs # 0.0 D-Dimer Specimen Type Arterial Sample Site Radial, left ABG pH 7.50 H ABG pCO2 28.7 L ABG pO2 60.2 L ABG HCO3 22.4 ABG Base Excess 0.2 Wilber Test Pos Hematocrit 40.5 L Hgb O2 Saturation 92.5 L Carboxyhemoglobin 1.0 Methemoglobin 1.1 Total Hemoglobin 13.2 L O2 Delivery Device Nc O2 Liters/Min 3.0 Wallpaper Consultant ID ellpe Sodium Potassium Chloride Carbon Dioxide Anion Gap BUN Creatinine GFR Calculation Glucose Calculated Osmolal ity Lactic Acid Calcium Total Bilirubin AST ALT Alkaline Phosphata se Troponin T Baselin e Troponin T 120 Min [place] Delta Troponin T Troponin T Hi Sens 6Hr Troponin T Hi Sens 6Hr Delta NT-Pro-B Natriuret Pep Total Protein Albumin Globulin Nasal/Oral COVID-1 9 PCR SARS-CoV-2 Ag (Rap id) Vitals: Last Vital Signs Temp 98.2 F 06/16/21 12:00 Pulse 91 06/16/21 12:00 Resp 18 06/16/21 12:00 BP 178/88 06/16/21 12:00 Pulse Ox 93 06/16/21 12:00 Discharge Plan Discharge Patient Disposition: Home Condition: Stable Prescriptions: New albuterol sulfate 1.25 mg/3 mL solution for nebulization 1.25 mg inhalation Q6H PRN (Reason: shortness of breath or wheezing) Qty: 15 RF: 0 atenolol 50 mg Tablet 100 mg PO DAILY 30 Days Qty: 60 RF: 0 levofloxacin 750 mg tablet 750 mg PO DAILY 6 Days Qty: 6 RF: 0 prednisone 20 mg tablet 20 mg PO BID 5 Days Qty: 10 RF: 0 Continued fluticasone propion-salmeterol [Advair Diskus] 500-50 mcg/dose blister with device 1 inh inhalation BID RF: 0 cyclobenzaprine 10 mg tablet 10 mg PO TID RF: 0 gabapentin 300 mg capsule 300 mg PO BID RF: 0 hydrocodone-acetaminophen 10-325 mg tablet 1 tab PO Q6H PRN (Reason: Pain) RF: 0 omeprazole 20 mg capsule,delayed release(DR/EC) 20 mg PO DAILY RF: 0 albuterol sulfate [ProAir HFA] 90 mcg/actuation HFA aerosol inhaler 1 inh inhalation QID RF: 0 tamsulosin 0.4 mg capsule 0.8 mg PO DAILY RF: 0 Discharge Orders: Discharge Order (Routine); Ordered 06/16/21 Ordered By: Stewart Rodarte Referrals: Alcira Guerra MD [Primary Care Provider] - Discharge Diet: Cardiac Discharge Activity: Resume usual activity Patient Instructions: Opioid Safety Activity Restrictions/Additional Instructions: -We will give prednisone burst -Take Levaquin as prescribed -Take inhalers every 6 hours as needed for shortness of breath -Please follow-up with primary care provider Discharge Attestations Time Spent in Discharge Care*: less than 30 min Quality Metrics Clinical Quality Measures During this hospital stay, did patient experience: None Coding Level of Care Code Acute Chg FW DC note Diagnoses Community acquired pneumonia J18.9 Laterality: right Lung location: lower lobe of lung Respiratory failure with hypoxia J96.01 Chronicity: acute Hypertension I10
[2021-06-16 14:30] LABS: Coronavirus Test Green County Not Detected
--- NOTE | 2021-06-16 14:57 | PC.NURSE ---
IV removed intact. Patient tolerated well. Patient is A&Ox3. Respirations even and non-labored on room air. Patient updated that his COVIID test was negative. Reviewed patient discharge with patient at this time. Patient verbalized understanding of follow up appointments and the prescription antibiotics. Patient wheel chaired to private private car.
--- NOTE | 2021-06-19 16:30 | PC.SOCIAL ---
Addendum entered by Ivette Morel RN 06/20/21 11:59: Please note the Proair inhaler dose is as previously listed one inhalation QID. Original Note: Spoke with patient and he indicates he does not have enough of the nebulized solution to last until seen by Dr Abner Guerra and his ProAir inhaler is out of date. Called Dr Rodarte and asked if can call in another 7 days of albuterol solution to pharmacy and renew inhaler script. Verbal order given. Called Zbigniew at pharmacy and the 1.25mg/3ml is on back order but they can dispense the 2.50mg/3ml and have pt use 1/2 vial at a time. Order placed and they will have this ready prior to close. Called patient and updated him. Discussed to use half vial at a time. Pt verbalized understanding and was appreciative.
== END 2021-06-16 15:00 | disposition home or self-care (01) ==
LOC: ER 06-16 02:09 → MEDSURG 06-16 03:57
PROVIDERS: Admitting Provider Internal Medicine; Emergency Provider Emergency Medicine; PCP Family Medicine; Visit Provider Family Medicine
DX: J18.9 Pneumonia, unspecified organism (principal); J96.01 Acute respiratory failure with hypoxia; I10 Essential (primary) hypertension; N40.0 Benign prostatic hyperplasia without lower urinary tract symptoms; K21.9 Gastro-esophageal reflux disease without esophagitis; J43.9 Emphysema, unspecified
CPT/HCPCS: 36415; 36600; 71045; 80053; 82805; 83605; 83880; 84484; 85025; 85378; 87040; 87426; 87635; 93005; 94640; 96365; 96375; 96376; 99285; G0378; J1956; J2270; J2405; J2930; J7030

== ENCOUNTER 2021-07-28 14:43 | Outpatient (CLI) | payer MEDICARE, SELFPAY ==
--- NOTE | 2021-07-28 14:59 | XR_ITS ---
WS: [id number] Chest 2 views, 07/28/2021 Clinical Data: PNEUMONIA/DYSPNEA Comparison: None. Findings: No nodules, masses or effusions are seen. There is a residual patchy opacity in the right l ower lobe with probable posterior right pleural thickening. The heart is enlarged. The pulmonary vasc ularity is not increased. No pneumothorax is seen. There is an azygos lobe the lung. The aortic arch shows calcification and mild tortuosity. XR/XR chest 2V* [id number] Impression: 1. Almost total clearing of right patchy pulmonary opacity with the posterior r ight pleural residual. 2. Cardiomegaly and atherosclerosis.
== END 2021-07-28 14:44 | disposition home or self-care (01) ==
PROVIDERS: PCP Family Medicine; Visit Provider Family Medicine
DX: J18.9 Pneumonia, unspecified organism (principal); R06.00 Dyspnea, unspecified; I51.7 Cardiomegaly; I70.90 Unspecified atherosclerosis
CPT/HCPCS: 71046

== ENCOUNTER 2021-08-06 09:39 | Outpatient (CLI) | payer MEDICARE, SELFPAY ==
--- NOTE | 2021-08-06 | CT_ITS ---
WS: [id number] CTA OF THE CHEST WITH PULMONARY EMBOLISM PROTOCOL TECHNIQUE: High-resolution contrast enhanced CTA of the chest with coronal and sagittal reformatted i mages with pulmonary embolism protocol. MIP images are also reviewed. CLINICAL INFORMATION: PNEUMONIA, DYSPNEA COMPARISON: CT 2017 DLP: 822.[address] scans at [facility] use at least one of these dose optimization techniques: automated e xposure control; mA and/or kV adjustment per patient size (includes targeted exams where dose is matc hed to clinical indication); or iterative reconstruction. FINDINGS:Proximal main pulmonary arteries are normal. Normal segmental and subsegmental pulmonary art eries. No evidence of pulmonary embolus. Moderate chronic emphysematous changes. Azygos fissure right upper lobe. Slight hazy groundglass infi ltrates peripherally in both lungs more prominent in the upper lobes. Fibrotic appearing spiculated i nfiltrates in the lung bases. Recommend follow-up to resolution. Noncalcified nodule right upper lobe along the fissure measuring 3 mm. Normal caliber thoracic aorta. Aortic calcification. No mediastinal or hilar lymphadenopathy.Adrenal glands are normal. Normal GE junction. A few prominent lymph nodes in the upper abdomen largest measu ring 10-11 mm likely reactive. Hypertrophic changes thoracic spine. CT/CT angio chest PE protcl [id number] IMPRESSION: 1. No evidence of pulmonary embolus. 2. Moderate chronic emphysematous changes. 3. Hazy subpleural infiltrates more prominent in the mid lungs and upper lobes compatible with history of Covid 19 pneumonia. 4. Fibrotic appearing spiculated opacities in both lung bases measuring 2.5x1. 4 cm in the right and 2.3 x 1.0 cm left. Findings most likely infectious or inf lammatory. Recommend [address] follow-up after treatment to assess resol ution.
[2021-08-06 10:19] LABS: Blood Urea Nitrogen 21 mg/dL (8-23); Glomerular Filtration Rate 54.9 mL/min (90-130)
[2021-08-06] MEDS: iodixanol 320 mg/mL 100mL Btl IV (10:58)
== END 2021-08-06 09:40 | disposition home or self-care (01) ==
PROVIDERS: PCP Family Medicine; Visit Provider Family Medicine
DX: J18.9 Pneumonia, unspecified organism (principal); R06.00 Dyspnea, unspecified
CPT/HCPCS: 71275; 82565; 84520; Q9967

== ENCOUNTER → 2021-09-22 15:17 | Outpatient (BNVA) | payer MEDICARE, SELFPAY | PROVIDERS: PCP Family Medicine; Visit Provider Urology | DX: N40.1 Benign prostatic hyperplasia with lower urinary tract symptoms (principal) | CPT/HCPCS: 84153 ==

== ENCOUNTER 2021-09-23 16:59 | Outpatient (CLI) | payer MEDICARE, SELFPAY ==
--- NOTE | 2021-09-23 17:01 | XR_ITS ---
WS: [id number] Exam: XR chest 2V* [id number] Date/Time of Exam: 09/23/2021 5:14 PM Reason For Exam: pneumonia Comparison 07/28/2021. The lungs are hyperinflated and clear. Normal cardiomediastinal structures and regional bony elements . No pleural effusions. XR/XR chest 2V* [id number] IMPRESSION: 1. Pulmonary hyperinflation which may indicate obstructive lung disease. No acu te process noted.
== END 2021-09-23 17:00 | disposition home or self-care (01) ==
LOC: RAD 17:01
PROVIDERS: PCP Family Medicine; Visit Provider Internal Medicine Pulmonary Disease
DX: J18.9 Pneumonia, unspecified organism (principal)
CPT/HCPCS: 71046

== ENCOUNTER 2021-10-02 10:15 | Outpatient (CLI) | payer MEDICARE, SELFPAY ==
--- NOTE | 2021-10-02 10:27 | USCV_ITS ---
Russel Wylie Age: 66 Gender: M : 1955 Exam Date: 10/02/2021 10:41 Ordering Phys: Alcira Guerra MD Technologist: Farhana Ribeiro [place]am [place] [facility] [place]: Shortness of breath BP: 166 / 59 HR: 52 Rhythm: Sinus Technical Quality: Adequate MEASUREMENTS (Male / Female) Normal Values 2D ECHO LV Diastolic Diameter PLAX 5.1 cm 4.2 - 5.9 / 3.9 - 5.3 cm LV Systolic Diameter PLAX 3.1 cm LV Chamber Size 4.9 cm IVS Diastolic Thickness 1.0 cm 0.6 - 1.0 / 0.6 - 0.9 cm IVS Systolic Thickness 1.5 cm LVPW Diastolic Thickness 1.2 cm 0.6 - 1.0 / 0.6 - 0.9 cm LVPW Systolic Thickness 1.5 cm RV Chamber Size 3.9 cm LVOT Diameter 2.1 cm LV Ejection Fraction 2D Teich 69.0 % LV Ejection Fraction MOD 2C 49.7 % LV Ejection Fraction 2C AL 46.9 % LA Diameter 3.5 cm LA Width 3.4 cm LA Height 5.1 cm RA Width 5.0 cm Aorta at Sinotubular Diameter 2.9 cm M-MODE Aortic Annulus Diameter 3.7 cm LA Ao Ratio MM 1.0 MV E Point Septal Separation 0.7 cm DOPPLER AV Peak Velocity 100.0 cm/s LVOT Peak Velocity 100.0 cm/s AV Area Cont Eq vti 2.8 cm squared AV Area Cont Eq pk 3.3 cm squared MV Area PHT 2.5 cm squared Mitral E to A Ratio 0.8 MV E' Velocity 40.0 cm/s Mitral E to MV E' Ratio 9.4 Mitral E to LV E' Lateral Ratio 8.2 Mitral E to LV E' Septal Ratio 11.0 TR Peak Velocity 115.3 cm/s TR Peak Gradient 5.3 mmHg TR Mean Velocity 78.4 cm/s TR Mean Gradient 2.8 mmHg TR Velocity Time Integral 27.7 cm TV Peak E Velocity 54.0 cm/s Right Atrial Pressure 3.0 mmHg Pulmonary Artery Systolic Pressu 8.3 mmHg PV Peak Velocity 62.0 cm/s RV Acceleration Time 0.2 s RV Ejection Time 0.4 s RV AcT/ET 0.6 FINDINGS Left Ventricle Normal left ventricular size, systolic function and wall thickness, with no regional wall motion abnormalities. Left ventricular ejection fraction is estimated at 60 %. Normal diastolic function. Right Ventricle Normal right ventricular size and systolic function. Normal right ventricular systolic pressure. Right Atrium Normal right atrial size. Left Atrium Normal left atrial size. Mitral Valve Mild mitral annular calcification. Structurally normal mitral valve. No mitral valve stenosis. Trace mitral valve regurgitation. Aortic Valve Aortic valve not well visualized. Probably tricuspid aortic valve. No aortic valve stenosis. No aortic valve regurgitation. Tricuspid Valve Structurally normal tricuspid valve. No tricuspid valve stenosis. Trace tricuspid valve regurgitation. Pulmonic Valve Pulmonic valve not well visualized. Pericardium No pericardial effusion. Aorta Normal-sized aortic root. Normal sized inferior vena cava CONCLUSIONS 1. Normal left ventricular size, systolic function and wall thickness, with no regional wall motion abnormalities. Left ventricular ejection fraction is estimated at 60 %. Normal diastolic function. 2. Normal right ventricular size and systolic function. 3. No significant valvular abnormality. 4. No prior similar studies to compare. Brittney Gomez MD (Electronically Signed) Final Date: 02 October 2021 13:05 S
== END 2021-10-02 10:16 | disposition home or self-care (01) ==
PROVIDERS: PCP Family Medicine; Visit Provider Family Medicine
DX: R79.89 Other specified abnormal findings of blood chemistry (principal); R06.02 Shortness of breath; J18.9 Pneumonia, unspecified organism
CPT/HCPCS: 93306

== ENCOUNTER → 2021-11-27 10:48 | Outpatient (BNVA) | payer MEDICARE, SELFPAY | PROVIDERS: PCP Family Medicine; Visit Provider Internal Medicine | DX: B18.2 Chronic viral hepatitis C (principal) | CPT/HCPCS: 82105; 86705; 86706; 87340; 87522; 87902 ==

== ENCOUNTER 2022-01-09 07:06 | Outpatient (CLI) | payer MEDICARE, SELFPAY ==
--- NOTE | 2022-01-09 07:15 | US_ITS ---
WS: [id number] Exam: US liver [id number] Date/Time of Exam: 01/09/2022 7:15 AM Reason For Exam: Hep C There was no sign of hepatic mass or nodule. No intrahepatic ductal dilatation. The liver is mildly p rominent measuring 17.06 cm at greatest dimension. The gallbladder is unremarkable. The common bile d uct is not dilated and measures 3.2 mm at greatest diameter. The abdominal aorta was normal in calibe r. The IVC is patent. 1.5 cm right renal cyst is noted. The right kidney is otherwise unremarkable an d measures 9.9 x 5.43 x 5.8 cm. No free fluid or mass in the right abdomen. The pancreas is unremarka ble as visualized however some parts of the pancreas are obscured by bowel gas. US/US liver [id number] IMPRESSION: 1. No sign of hepatic mass or intrahepatic ductal dilatation. Mild hepatomegaly . 2. No other significant finding in the right abdomen. Small right renal cyst.
== END 2022-01-09 07:07 | disposition home or self-care (01) ==
LOC: RAD 07:07
PROVIDERS: PCP Family Medicine; Visit Provider Internal Medicine
DX: B18.2 Chronic viral hepatitis C (principal); R16.0 Hepatomegaly, not elsewhere classified
CPT/HCPCS: 76705

== ENCOUNTER → 2022-02-12 14:00 | Outpatient (BNVA) | payer MEDICARE, SELFPAY | PROVIDERS: PCP Family Medicine; Visit Provider Internal Medicine | DX: B19.20 Unspecified viral hepatitis C without hepatic coma (principal) | CPT/HCPCS: 87522 ==

== ENCOUNTER → 2022-04-08 12:55 | Outpatient (BNVA) | payer MEDICARE, SELFPAY | PROVIDERS: PCP Family Medicine; Visit Provider Otolaryngology | DX: H91.93 Unspecified hearing loss, bilateral (principal); H93.13 Tinnitus, bilateral | CPT/HCPCS: 99202; 99203 ==

== ENCOUNTER 2022-05-30 11:15 | Emergency (ER) | payer MEDICARE, SELFPAY ==
[2022-05-30 11:29] VITALS: BP 100/57; PULSE 71; RESP 16; TEMP 37.6; O2SAT 93; BMI 29.4
--- NOTE | 2022-05-30 11:59 | XRR_ITS ---
PROCEDURE INFORMATION: Exam: XR Chest Exam date and time: 05/30/2022 1:04 PM Age: 66 years old Clinical indication: Shortness of breath; Additional info: SOB TECHNIQUE: Imaging protocol: Radiologic exam of the chest. Views: 2 views. COMPARISON: CR XR chest 2V* [id number] 09/23/2021 5:11 PM FINDINGS: Lungs: Normal variant azygos lobe. Pleural spaces: Costophrenic angles are not completely visualized. No large pleural effusions. Heart/Mediastinum: Unremarkable. No cardiomegaly. Vasculature: There is calcified plaque in the aortic knob similar to the prior study. Bones/joints: Unremarkable. XR/XR chest 2V* [id number] IMPRESSION: No evidence for acute cardiopulmonary disease.
[2022-05-30 12:41] LABS: Basophils % 0.4 %; Eosinophils % 0.2 %; Hematocrit 37.8 % (42.0-52.0); Hemoglobin 12.9 g/dL (11.7-16.6); Lymphocytes # 1.2 10^3/uL (0.8-4.8); Mean Corpuscular HGB Conc 34.1 g/dL (30.0-36.0); Mean Corpuscular Hemoglobin 31.9 pg (28.0-34.0); Mean Corpuscular Volume 93.3 fl (80-94); Mean Platelet Volume 10.2 fL (7.4-10.4); Monocytes # 1.4 10^3/uL (0.2-0.9); Monocytes % 14.8 %; Neutrophils # 6.66 10^3/uL (1.8-7.7); Neutrophils % 71.2 %; Nucleated Red Blood Cells % 0 %; Platelet Count 173 10^3/cmm (130-400); Red Blood Count 4.05 10^6/uL (4.1-5.3); Red Cell Distribution Width 12.6 % (12.1-15.1); White Blood Count 9.4 10^3/uL (4.0-10.0)
[2022-05-30 12:51] VITALS: PULSE 71; RESP 18; O2SAT 98
[2022-05-30] MEDS: ipratropium-albuterol 3 mL Neb INHALATION (12:52)
[2022-05-30 12:55] VITALS: PULSE 67
[2022-05-30 12:56] LABS: Alanine Aminotransferase 9 U/L (0-41); Albumin Level 3.9 g/dL (3.5-5.2); Alkaline Phosphatase 50 U/L (40-130); Anion Gap 15.3 (5-19); Aspartate Amino Transferase 18 U/L (0-40); Blood Urea Nitrogen 28 mg/dL (8-23); Calcium 9.1 mg/dL (8.5-10.5); Carbon Dioxide 25 mmol/L (22-29); Chloride 99 mmol/L (98-107); Globulin 3.3 g/dL (1.3-4.6); Glomerular Filtration Rate 31.6 mL/min (90-130); Glucose 102 mg/dL (65-115); Magnesium 1.3 mg/dL (1.7-2.3); Osmolality Calculated 286 mOsm/kg (285-295); Potassium 4.3 mmol/L (3.5-5.1); Sodium 135 mmol/L (136-145); Total Bilirubin 0.4 mg/dL (0.15-1.2); Total Protein 7.2 g/dL (6.6-8.7)
--- NOTE | 2022-05-30 13:51 | W.ED.SOB ---
HPI - SOB/Dyspnea General: Chief Complaint: Shortness of Breath/Dyspnea Stated Complaint: SOB, congestion Time Seen by Provider: 05/30/22 11:56 History of Present Illness: HPI Narrative: 66-year-old male presents with shortness of breath. He reports has been going on for about 2 days. Patient has a history of COPD and reports he frequently gets pneumonia patient is concerned they may be get pneumonia. Patient is currently out of his nebulizer. Patient denies any fever, chills, nausea or vomiting. Patient denies any chest pain. He also complains of some congestion. Patient denies any other systemic complaints at this time. Associated symptoms: Deny abdominal pain, chest pain, dizziness, fever(s), lightheadedness, nausea, palpitations or vomiting Review of Systems Const: Denies: fever(s) or chills Eyes: Denies: change in vision ENMT: Reports: nasal congestion; Denies: throat pain Card: Denies: chest pain, palpitations or lightheadedness Resp: Reports: dyspnea and non-productive cough GI: Denies: abdominal pain, nausea or vomiting : Denies: difficulty urinating or urinary frequency Musc: Reports: other (No acute complaints) Skin/Breast: Denies: rash or pruritus Neuro: Denies: headache(s) or dizziness PFSH ED PFSH: Medical History Anemia BPH loc w urin obs/LUTS Chronic kidney disease Chronic renal insufficiency COPD (chronic obstructive pulmonary disease) Diverticulosis Elevated brain natriuretic peptide (BNP) level GERD (gastroesophageal reflux disease) Hepatitis C Rheumatoid arthritis Urolithiasis Surgical History H/O colonoscopy Family History Mother , at age 78 Cancer LUNG Father , at age 72 Cancer lung Social History Smoking and tobacco status: former smoker (quit smoking 5 years ago, smoked over 25 years ) Quit status (tobacco): has quit using tobacco Year quit tobacco: June, Former quit date comment: 1 ppd x40 years Alcohol intake: never Marital status: Current occupational status: retired History of recent travel: No Physical Exam Const: COMMON NORMALS: no acute distress, patient oriented x3 and no limitations Chest: COMMONS NORMALS: normal inspection of the chest Resp: COMMON NORMALS: normal respiratory effort, No retractions, No use of accessory muscles and clear to auscultation bilaterally AUSCULTATION: clear to auscultation bilaterally Cardio: COMMON NORMALS: regular rate and regular rhythm RATE: regular rate RHYTHM: regular rhythm GI: COMMON NORMALS: Soft to palpation and non-tender PALPATION: Yes Soft to palpation Extremity: COMMON NORMALS: full ROM and capillary refill normal Neuro: COMMON NORMALS: patient oriented x3, moves all extremities and no focal motor deficits Psych: COMMON NORMALS: mental status grossly normal, cooperative and speech normal SPEECH: Yes normal speech Course Vital Signs: Vital signs: Vital Signs Temperature 99.7 F H 05/30/22 11:29 Pulse Rate 67 05/30/22 12:55 Respiratory Rate 18 05/30/22 12:51 Blood Pressure 100/57 05/30/22 11:29 Pulse Oximetry 98 05/30/22 12:51 Oxygen Delivery Me thod 05/30/22 12:51 MDM - SOB/Dyspnea Medical Decision Making Patient was likely mild nasal congestion with mild exacerbation of his chronic COPD since he is off his inhaler. I will renew his inhaler prescription along with starting him on a couple days of steroid. He should follow-up with his primary care provider next week patient stable and discharged home Lab Data : 05/30/22 12:10 05/30/22 12:10 Labs/Radiology: Radiology Impressions Chest X-Ray 05/30/22 11:59 IMPRESSION: No evidence for acute cardiopulmonary disease. Laboratory Results WBC 9.4 10^3/uL (4.0-10.0) 05/30/22 12:10 RBC 4.05 10^6/uL (4.1-5.3) L 05/30/22 12:10 Hgb 12.9 g/dL (11.7-16.6) 05/30/22 12:10 Hct 37.8 % (42.0-52.0) L 05/30/22 12:10 MCV 93.3 fl (80-94) 05/30/22 12:10 MCH 31.9 pg (28.0-34.0) 05/30/22 12:10 MCHC 34.1 g/dL (30.0-36.0) 05/30/22 12:10 RDW 12.6 % (12.1-15.1) 05/30/22 12:10 Plt Count 173 10^3/cmm (130-400) 05/30/22 12:10 MPV 10.2 fL (7.4-10.4) 05/30/22 12:10 Neut % (Auto) 71.2 % 05/30/22 12:10 Lymph % (Auto) 13.0 % 05/30/22 12:10 Hinds % (Auto) 14.8 % 05/30/22 12:10 Eos % (Auto) 0.2 % 05/30/22 12:10 Baso % (Auto) 0.4 % 05/30/22 12:10 Neut # (Auto) 6.66 10^3/uL (1.8-7.7) 05/30/22 12:10 Lymph # (Auto) 1.2 10^3/uL (0.8-4.8) 05/30/22 12:10 Hinds # (Auto) 1.4 10^3/uL (0.2-0.9) H 05/30/22 12:10 Eos # (Auto) 0.0 10^3/uL (0.0-0.8) 05/30/22 12:10 Baso # (Auto) 0.0 10^3/uL (0.0-0.1) 05/30/22 12:10 Nucleated RBC % (auto) 0 % 05/30/22 12:10 Nucleated RBCs # 0.0 /100WBC 05/30/22 12:10 Sodium 135 mmol/L (136-145) L 05/30/22 12:10 Potassium 4.3 mmol/L (3.5-5.1) 05/30/22 12:10 Chloride 99 mmol/L (98-107) 05/30/22 12:10 Carbon Dioxide 25 mmol/L (22-29) 05/30/22 12:10 Anion Gap 15.3 (5-19) 05/30/22 12:10 BUN 28 mg/dL (8-23) H 05/30/22 12:10 Creatinine 2.1 mg/dL (0.7-1.2) H 05/30/22 12:10 GFR Calculation 31.6 mL/min (90-130) L 05/30/22 12:10 Glucose 102 mg/dL (65-115) 05/30/22 12:10 Calculated Osmolality 286 mOsm/kg (285-295) 05/30/22 12:10 Calcium 9.1 mg/dL (8.5-10.5) 05/30/22 12:10 Magnesium 1.3 mg/dL (1.7-2.3) L 05/30/22 12:10 Total Bilirubin 0.4 mg/dL (0.15-1.2) 05/30/22 12:10 AST 18 U/L (0-40) 05/30/22 12:10 ALT 9 U/L (0-41) 05/30/22 12:10 Alkaline Phosphatase 50 U/L (40-130) 05/30/22 12:10 Total Protein 7.2 g/dL (6.6-8.7) 05/30/22 12:10 Albumin 3.9 g/dL (3.5-5.2) 05/30/22 12:10 Globulin 3.3 g/dL (1.3-4.6) 05/30/22 12:10 Discharge Plan Discharge Patient Disposition: Home Clinical Impression: Acute exacerbation of chronic obstructive airways disease Condition: Stable Prescriptions: New prednisone 20 mg tablet 40 mg PO DAILY 3 Days Qty: 6 0RF albuterol sulfate [ProAir HFA] 90 mcg/actuation HFA aerosol inhaler 2 inh inhalation Q6H PRN (Reason: shortness of breath or wheezing) Qty: 8.5 0RF No Action gabapentin 300 mg capsule 300 mg PO BID hydrocodone-acetaminophen 10-325 mg tablet 1 tab PO Q6H PRN (Reason: Pain) omeprazole 20 mg capsule,delayed release(DR/EC) 20 mg PO DAILY albuterol sulfate [ProAir HFA] 90 mcg/actuation HFA aerosol inhaler 1 inh inhalation QID tamsulosin 0.4 mg capsule 0.8 mg PO DAILY cyclobenzaprine 10 mg tablet 10 mg PO TID PRN losartan 25 mg tablet 25 mg PO BID All Day Allergy (cetirizine) 10 mg capsule 10 mg PO DAILY PRN atenolol 100 mg tablet 100 mg PO DAILY Trelegy Ellipta 200-62.5-25 mcg blister with device 1 inh inhalation DAILY sofosbuvir-velpatasvir [Epclusa] 400-100 mg tablet 1 tab PO DAILY Qty: 28 2RF albuterol sulfate 1.25 mg/3 mL solution for nebulization 1.25 mg inhalation Q6H PRN (Reason: shortness of breath or wheezing) Qty: 15 0RF Discharge Orders: Discharge ED (Routine); Ordered 05/30/22 Ordered By: aHy Cowart Referrals: Alcira Guerra MD [Primary Care Provider] - Discharge Diet: Usual diet Discharge Activity: Resume usual activity Patient Instructions: Opioid Safety, Pain Management, COPD (Chronic Obstructive Pulmonary Disease) (DC) Activity Restrictions/Additional Instructions: Follow-up with your primary care provider in 3 days for recheck of your symptoms Coding Level of Care Code ED Owner Manager for Yasemin Brandt
[2022-05-30 14:10] VITALS: BP 151/77; PULSE 98; RESP 16; O2SAT 95
== END 2022-05-30 14:15 | disposition home or self-care (01) ==
PROVIDERS: Emergency Provider Student in an Organized Health Care Education/Training Program; PCP Family Medicine
DX: J44.1 Chronic obstructive pulmonary disease with (acute) exacerbation (principal); Z87.891 Personal history of nicotine dependence; Z86.19 Personal history of other infectious and parasitic diseases
CPT/HCPCS: 71046; 80053; 83735; 85025; 94640; 99284

== ENCOUNTER 2023-05-18 15:20 | Outpatient (CLI) | payer MEDICARE, SELFPAY ==
--- NOTE | 2023-05-18 15:30 | US_ITS ---
WS: [id number] ULTRASOUND THYROID TECHNIQUE: Ultrasound of the thyroid. CLINICAL INFORMATION: THYROMEGALY COMPARISON: None. FINDINGS: Thyroid: Right and left thyroid lobes are normal in size and echotexture. Right thyroid lobe: 4.8 cm x 1.8 cm x 2.0 cm A few small subcentimeter complex cystic nodules and incidental colloid cysts. Largest RIGHT measurin g 6 to 7 mm in the mid and upper thyroid. Additional 5 mm cystic nodule inferior thyroid. Left thyroid lobe: 4.4 cm x 2.0 cm x 2.1 cm. A few very tiny incidental cystic lesions. Isthmus: 0.6 mm. Cervical lymphadenopathy: None. Partially visualized carotid calcification. This could be further evaluated with ultrasound carotids. IMPRESSION: 1. A few small subcentimeter complex cystic nodules and incidental colloid cysts. Largest RIGHT radha uring 6 to 7 mm in the mid and upper thyroid. Additional 5 mm cystic nodule inferior thyroid. 2. A few very tiny cystic LEFT thyroid lesions. 3. Partially visualized carotid calcification. This could be further evaluated with ultrasound carot ids.
== END 2023-05-18 15:21 | disposition home or self-care (01) ==
LOC: RAD 15:24
PROVIDERS: PCP Family Medicine; Visit Provider Family Medicine
DX: E01.0 Iodine-deficiency related diffuse (endemic) goiter (principal)
CPT/HCPCS: 76536

== ENCOUNTER → 2024-01-27 11:07 | Outpatient (BNVA) | payer MEDICARE, SELFPAY | PROVIDERS: PCP Family Medicine; Referring Provider Family Medicine; Visit Provider Nurse Practitioner | DX: M17.11 Unilateral primary osteoarthritis, right knee | CPT/HCPCS: 73560; 73565; 99204 ==

== ENCOUNTER 2024-03-13 09:57 | Outpatient (CLI) | payer MEDICARE, SELFPAY ==
--- NOTE | 2024-03-13 10:02 | US_ITS ---
WS: [id number] ULTRASOUND RENAL TECHNIQUE: Ultrasound examination of both kidneys. CLINICAL INFORMATION: CHRONIC KIDNEY DZ COMPARISON: None. FINDINGS: Bilateral simple renal cysts described below. RIGHT:Simple cyst RIGHT inferior renal pole measuring 1.4 x 1.8 x 1.5 cm Echogenicity: Increased Mild cortical atrophy Hydronephrosis: None. Perinephric fluid: None. Right kidney measures: 10.2 cm x 4.6 cm x 5.2 cm. LEFT:Simple cyst LEFT inferior renal pole measuring 2.9 x 1.9 x 1.5 cm Echogenicity: Increased Mild cortical atrophy Hydronephrosis: None. Perinephric fluid: None. Left kidney measures: 10.6 cm x 3.9 cm x 5.0 cm. Normal visualized aorta. Normal bladder. Enlarged prostate measuring 4.5 x 3.9 x 4.1 cm US/US renal BI* [id number] IMPRESSION: 1. No hydronephrosis in either kidney. 2. Mild renal cortical atrophy with increased echogenicity. This can be seen w ith medical renal disease. 3. Enlarged prostate measuring 4.5 x 3.9 x 4.1 cm. Recommend correlation PSA. 4. Simple cyst RIGHT inferior renal pole measuring 1.4 x 1.8 x 1.5 cm 5. Simple cyst LEFT inferior renal pole measuring 2.9 x 1.9 x 1.5 cm
== END 2024-03-13 09:58 | disposition home or self-care (01) ==
LOC: RAD 09:58
PROVIDERS: PCP Family Medicine; Visit Provider Family Medicine
DX: N18.9 Chronic kidney disease, unspecified (principal); N28.1 Cyst of kidney, acquired; N26.1 Atrophy of kidney (terminal); N40.0 Benign prostatic hyperplasia without lower urinary tract symptoms
CPT/HCPCS: 76770

== ENCOUNTER 2024-03-13 12:00 | Outpatient (CLI) | payer MEDICARE, SELFPAY | END 2024-03-13 12:01 | disposition home or self-care (01) | LOC: SPT 12:00 | PROVIDERS: PCP Family Medicine; Visit Provider Nurse Practitioner | DX: Z46.89 Encounter for fitting and adjustment of other specified devices (principal); M17.11 Unilateral primary osteoarthritis, right knee | CPT/HCPCS: 97760; L1812 ==

== ENCOUNTER → 2024-05-03 10:12 | Outpatient (BNVA) | payer MEDICARE, SELFPAY | PROVIDERS: PCP Family Medicine; Visit Provider Nurse Practitioner | DX: M17.11 Unilateral primary osteoarthritis, right knee (principal) | CPT/HCPCS: 20610; J1100; J2795; J3301 ==

== ENCOUNTER → 2024-06-21 15:27 | Outpatient (BNVA) | payer MEDICARE, SELFPAY | PROVIDERS: PCP Family Medicine; Visit Provider Nurse Practitioner | DX: M25.511 Pain in right shoulder (principal); Z53.21 Procedure and treatment not carried out due to patient leaving prior to being seen by health care provider | CPT/HCPCS: 73030 ==

== ENCOUNTER 2024-07-01 20:32 | Inpatient (IN) | payer MEDICARE, MEDICAID, SELFPAY ==
[2024-07-01 20:36] VITALS: BMI 26.8
[2024-07-01 20:38] VITALS: BP 193/70; PULSE 86; RESP 22; TEMP 37.3; O2SAT 98
--- NOTE | 2024-07-01 20:41 | XRR_ITS ---
PROCEDURE INFORMATION: Exam: XR Chest Exam date and time: 07/01/2024 9:28 PM Age: 68 years old Clinical indication: Shortness of breath; Patient HX: PT reports SOB since thanksgiving with fatigue. states he hasn't ate much in several days. HX of copd and pneumonia. TECHNIQUE: Imaging protocol: Radiologic exam of the chest. Views: 1 view. COMPARISON: CR XR chest 2V* [id number] 05/30/2022 1:04 PM FINDINGS: Lungs: Subtle patchy lung base opacities of an infectious/inflammatory etiology. No lobar consolidation. Pleural spaces: Unremarkable. No pleural effusion. No pneumothorax. Heart/Mediastinum: Unremarkable. No cardiomegaly. Bones/joints: Unremarkable. XR/XR chest 1V portable [id number] IMPRESSION: As above.
--- NOTE | 2024-07-01 21:26 | ECG_ITS ---
[facility] Test Date: 2024-07-01 Pat Name: Russel Wylie Department: Room: Gender: Male Field Counsel: : 1955 Requested By: Demond Mejia Order Number: [id number] Ilene MD: Mike Henning M.D. Measurements Intervals [place] Rate: 81 P: 70 [place]: 164 QRS: 71 QRSD: 81 T: 58 QT: 323 QTc: 377 Interpretive Statements SINUS RHYTHM Compared to ECG 06/16/2021 00:36:59 Sinus tachycardia no longer present T-wave abnormality no longer present Electronically Signed On 07-02-2024 18:50:59 REVERBERATORY FURNACE SUPERVISOR by Mike Henning M.D. [email or web address]
[2024-07-01 21:41] LABS: Basophils # 0.1 10^3/uL (0.0-0.1); Basophils % 0.4 %; Eosinophils % 0.1 %; Hematocrit 37.3 % (37-53); Lymphocytes % 8.8 %; Mean Corpuscular HGB Conc 33.5 g/dL (30-55); Mean Corpuscular Hemoglobin 31.3 pg (27-33); Mean Corpuscular Volume 93.3 fl (82-101); Mean Platelet Volume 9.5 fL (7.4-10.4); Monocytes # 2.2 10^3/uL (0.2-0.9); Monocytes % 9.8 %; Neutrophils # 17.84 10^3/uL (1.8-7.7); Neutrophils % 79.9 %; Nucleated Red Blood Cells % 0 %; Platelet Count 226 10^3/cmm (157-399); Red Cell Distribution Width 12.7 % (12.1-15.1); White Blood Count 22.34 10^3/uL (3.29-11.43)
[2024-07-01 22:05] LABS: Alanine Aminotransferase 7 U/L (0-41); Albumin Level 4.3 g/dL (3.5-5.2); Alkaline Phosphatase 64 U/L (40-130); Anion Gap 17.1 (5-19); Aspartate Amino Transferase 15 U/L (0-40); Blood Urea Nitrogen 25 mg/dL (8-23); Calcium 9.4 mg/dL (8.5-10.5); Carbon Dioxide 26 mmol/L (22-29); Chloride 101 mmol/L (98-107); Creatinine Clr Calc Pharmacy 53.4621; Globulin 2.7 g/dL (1.3-4.6); Glomerular Filtration Rate 46.3 mL/min (90-130); Glucose 112 mg/dL (65-115); Osmolality Calculated 295 mOsm/kg (285-295); Potassium 4.1 mmol/L (3.5-5.1); Sodium 140 mmol/L (136-145); Total Bilirubin 1.1 mg/dL (0.15-1.2)
[2024-07-01 22:06] LABS: Lactic Sepsis W/Reflex 1.5 mmol/L (0.5-2.2)
[2024-07-01 22:08] LABS: Troponin(5th) Baseline 25 ng/L (0-15)
[2024-07-01 22:16] LABS: NT Pro B Type Natriuretic Pept 6270 pg/mL (0-125)
[2024-07-01 22:17] LABS: Covid PCR NEGATIVE (Negative); Influenza A NEGATIVE (Negative); Influenza B NEGATIVE (Negative); Respiratory Syncytial Virus Ce NEGATIVE (Negative)
[2024-07-01] MEDS: levoFLOXacin 750 mg Tablet PO (22:31)
[2024-07-01 22:35] VITALS: BP 182/71; PULSE 87; RESP 15; O2SAT 96
--- NOTE | 2024-07-01 22:41 | ECG_ITS ---
[facility] Test Date: 2024-07-01 Pat Name: Russel Wylie Department: Room: Gender: Male Content Strategist: : 1955 Requested By: Demond Mejia Order Number: [id number] Ilene MD: Mike Henning M.D. Measurements Intervals [place] Rate: 89 P: 75 [place]: 151 QRS: 73 QRSD: 78 T: 64 QT: 328 QTc: 400 Interpretive Statements SINUS RHYTHM MINIMAL ST DEPRESSION [0.025+ mV ST DEPRESSION] Compared to ECG 07/01/2024 21:26:13 ST (T wave) deviation now present Electronically Signed On 07-02-2024 19:02:39 SALES TEAM MANAGER by Mike Henning M.D. [email or web address]
[2024-07-01 23:19] LABS: ABG PCO2 32.2 mmHg (35-45); Arterial Blood Gas Hematocrit 36.1 % (42-52); Base Excess ABG 2.2 mmol/L (-2.0-2.0); Blood Gas Allen Test Pos; Blood Gas Operator Identificat SAM; Blood Gas Sample Site Radial, left; Blood Gas Sample Type Arterial; PO2 ABG 68.5 mmHg (80.0-100.0); PO2 FiO2 Ratio Arterial Blood 326
[2024-07-01] MEDS: ondansetron 2 mg/ML SDV 2 mL 4 MG IVP (23:19)
[2024-07-01 23:22] LABS: Troponin 5 2HR 23.89 ng/L (0-15)
[2024-07-01 23:27] LABS: Troponin 5 2HR Delta -1.11 ABS# (0-10)
[2024-07-01 23:43] VITALS: PULSE 99; RESP 30; O2SAT 93
[2024-07-02] VITALS (14 sets, daily range): BP systolic 121–180; BP diastolic 64–90; PULSE 71–99; RESP 15–18; TEMP 36.7–38.8; O2SAT 93–99; BMI 25.4
--- NOTE | 2024-07-02 00:02 | ED_ITS ---
HPI - Pediatric SOB/Dyspnea 2 General: Chief Complaint: Shortness of Breath/Dyspnea Stated Complaint: SOB Fever Time Seen by Provider: 07/01/24 21:29 History of Present Illness: Russel Wylie is a 68-year-old man that presents to the emergency department with complaints of fever, cough, malaise and fatigue for the last 48 hours. Tmax 102. Afebrile here. He is mildly tachypneic. He has a heart rate in the 80s to 90s. Patient's reports history that includes COPD, hypertension, hyperlipidemia, chronic kidney disease, Back in 2010 he had a similar type illness and ended up being septic. Related Data Home Medications Medication Instructions Recorded Confirmed albuterol sulfate 90 mcg/actuation 1 inh inhalation QID 10/28/20 06/21/24 aerosol inhaler (ProAir HFA) gabapentin 300 mg capsule 300 mg PO BID 10/28/20 06/21/24 hydrocodone 10 mg-acetaminophen 1 tab PO Q6H PRN Pain 10/28/20 06/21/24 325 mg tablet omeprazole 20 mg capsule,delayed 20 mg PO DAILY 10/28/20 06/21/24 release tamsulosin 0.4 mg capsule 0.8 mg PO DAILY 10/28/20 06/21/24 atenolol 100 mg tablet 100 mg PO DAILY 09/22/21 06/21/24 cetirizine 10 mg capsule (All Day 10 mg PO DAILY PRN 09/22/21 06/21/24 Allergy (cetirizine)) cyclobenzaprine 10 mg tablet 10 mg PO TID PRN 09/22/21 06/21/24 losartan 25 mg tablet 25 mg PO BID 09/22/21 06/21/24 fluticasone fur. 200 mcg-umeclid 1 inh inhalation DAILY 01/15/22 06/21/24 62.5 mcg-vilant 25 mcg inhalat.powder (Trelegy Ellipta) Previous Rx's Medication Instructions Recorded albuterol sulfate 1.25 mg/3 mL 1.25 mg (3 mL) inhalation Q6H PRN 06/16/21 solution for nebulization shortness of breath or wheezing #15 mL sofosbuvir 400 mg-velpatasvir 100 1 tab PO DAILY #28 tabs 01/15/22 mg tablet (Epclusa) albuterol sulfate 90 mcg/actuation 2 inh inhalation Q6H PRN shortness 05/30/22 aerosol inhaler (ProAir HFA) of breath or wheezing #8.5 grams diclofenac sodium 3 % topical gel 1 applic topical BID 90 days #100 01/27/24 grams Hinged knee brace, RIGHT #1 ea 03/01/24 Allergies Allergy/AdvReac Type Severity Reaction Status Date / Time aspirin Allergy Unknown Verified 06/21/24 15:46 cefuroxime [From Ceftin] Allergy Unknown Verified 06/21/24 15:46 Penicillins Allergy Unknown Verified 06/21/24 15:46 PFSH ED 2 PFSH: Medical History Osteoarthritis of right knee COPD (chronic obstructive pulmonary disease) Chronic kidney disease Anemia Chronic renal insufficiency GERD (gastroesophageal reflux disease) Elevated brain natriuretic peptide (BNP) level Hepatitis C Rheumatoid arthritis Urolithiasis BPH loc w urin obs/LUTS Diverticulosis Surgical History H/O colonoscopy Family History Mother , at age 78 Cancer LUNG Father , at age 72 Cancer lung Social History Smoking and tobacco/nicotine status: former use of tobacco/nicotine Quit status (tobacco/nicotine): has quit using Year quit tobacco: June, Former quit date comment: 1 ppd x40 years Alcohol intake: never Marital status: Current occupational status: retired Course 2 Vital Signs: Vital signs: Vital Signs Temperature 99.2 F 07/01/24 20:38 Pulse Rate 99 07/01/24 23:43 Respiratory Rate 30 H 07/01/24 23:43 Blood Pressure 182/71 07/01/24 22:35 Pulse Oximetry 93 07/01/24 23:43 Oxygen Delivery Me thod Room Air 07/01/24 22:35 Medical Decision Making Lab Data 07/01/24 21:32 07/01/24 21:32 Radiology Impressions Chest X-Ray 07/01/24 20:41 IMPRESSION: As above. Laboratory Results WBC 22.34 10^3/uL (3.29-11.43) H 07/01/24 21:32 RBC 4.00 10^6/uL (3.85-5.65) 07/01/24 21:32 Hgb 12.50 g/dL (11.27-16.99) 07/01/24 21:32 Hct 37.3 % (37-53) 07/01/24 21:32 MCV 93.3 fl (82-101) 07/01/24 21: MCH 31.3 pg (27-33) 07/01/24 21: MCHC 33.5 g/dL (30-55) 07/01/24 21:32 RDW 12.7 % (12.1-15.1) 07/01/24 21: Plt Count 226 10^3/cmm (157-399) 07/01/24 21: MPV 9.5 fL (7.4-10.4) 07/01/24 21: Neut % (Auto) 79.9 % 07/01/24 21: Lymph % (Auto) 8.8 % 07/01/24 21: Clay % (Auto) 9.8 % 07/01/24 21: Eos % (Auto) 0.1 % 07/01/24 21: Baso % (Auto) 0.4 % 07/01/24 21: Neut # (Auto) 17.84 10^3/uL (1.8-7.7) H 07/01/24 21:32 Lymph # (Auto) 2.0 10^3/uL (0.8-4.8) 07/01/24 21:32 Clay # (Auto) 2.2 10^3/uL (0.2-0.9) H 07/01/24 21:32 Eos # (Auto) 0.0 10^3/uL (0.0-0.8) 07/01/24 21: Baso # (Auto) 0.1 10^3/uL (0.0-0.1) 07/01/24 21: Nucleated RBC % (auto) 0 % 07/01/24: Nucleated RBCs # 0.0 /100WBC 07/01/24 21:32 Specimen Type Arterial 07/01/24 23:07 Sample Site Radial, left 07/01/24 23:07 ABG pH 7.50 (7.35-7.45) H 07/01/24 23:07 ABG pCO2 32.2 mmHg (35-45) L 07/01/24 23:07 ABG pO2 68.5 mmHg (80.0-100.0) L 07/01/24 23:07 ABG PO2/FiO2 Ratio 326 07/01/24 23:07 ABG HCO3 25.0 mmol/L (22-26) 07/01/24 23:07 ABG Base Excess 2.2 mmol/L (-2.0-2.0) H 07/01/24 23:07 Wilber Test Pos 07/01/24 23:07 Hematocrit 36.1 % (42-52) L 07/01/24 23:07 O2 Delivery Device None 07/01/24 23:07 FiO2 21.0 % 07/01/24 23:07 Washer Operator ID Tico 07/01/24 23:07 Sodium 140 mmol/L (136-145) 07/01/24 21:32 Potassium 4.1 mmol/L (3.5-5.1) 07/01/24 21:32 Chloride 101 mmol/L (98-107) 07/01/24 21:32 Carbon Dioxide 26 mmol/L (22-29) 07/01/24 21:32 Anion Gap 17.1 (5-19) 07/01/24 21:32 BUN 25 mg/dL (8-23) H 07/01/24 21:32 Creatinine 1.5 mg/dL (0.7-1.2) H 07/01/24 21:32 GFR Calculation 46.3 mL/min (90-130) L 07/01/24 21:32 Glucose 112 mg/dL (65-115) 07/01/24 21:32 Calculated Osmolality 295 mOsm/kg (285-295) 07/01/24 21:32 Lactic Acid 1.5 mmol/L (0.5-2.2) 07/01/24 21:32 Calcium 9.4 mg/dL (8.5-10.5) 07/01/24 21:32 Total Bilirubin 1.1 mg/dL (0.15-1.2) 07/01/24 21:32 AST 15 U/L (0-40) 07/01/24 21:32 ALT 7 U/L (0-41) 07/01/24 21:32 Alkaline Phosphatase 64 U/L (40-130) 07/01/24 21:32 Troponin T Baseline 25 ng/L (0-15) H 07/01/24 21:32 Troponin T 120 Minute 23.89 ng/L (0-15) H 07/01/24 22:59 Delta Troponin T -1.11 ABS# (0-10) L 07/01/24 22:59 NT-Pro-B Natriuret Pep 6270 pg/mL (0-125) H 07/01/24 21:32 Total Protein 7.0 g/dL (6.6-8.7) 07/01/24 21:32 Albumin 4.3 g/dL (3.5-5.2) 07/01/24 21: Globulin 2.7 g/dL (1.3-4.6) 07/01/24 21:32 Coronavirus (PCR) Negative (Negative) 07/01/24 21:35 Influenza A (PCR) Negative (Negative) 07/01/24 21:35 Influenza Type B (PCR) Negative (Negative) 07/01/24 21:35 RSV (PCR) Negative (Negative) 07/01/24 21:35 Discharge Plan Discharge Condition: Stable Prescriptions: No Action gabapentin 300 mg capsule 300 mg PO BID hydrocodone-acetaminophen 10-325 mg tablet 1 tab PO Q6H PRN (Reason: Pain) omeprazole 20 mg capsule,delayed release(DR/EC) 20 mg PO DAILY albuterol sulfate [ProAir HFA] 90 mcg/actuation HFA aerosol inhaler 1 inh inhalation QID tamsulosin 0.4 mg capsule 0.8 mg PO DAILY cyclobenzaprine 10 mg tablet 10 mg PO TID PRN losartan 25 mg tablet 25 mg PO BID All Day Allergy (cetirizine) 10 mg capsule 10 mg PO DAILY PRN atenolol 100 mg tablet 100 mg PO DAILY diclofenac sodium 3 % gel 1 applic topical BID 90 Days Qty: 100 0RF Trelegy Ellipta 200-62.5-25 mcg blister with device 1 inh inhalation DAILY sofosbuvir-velpatasvir [Epclusa] 400-100 mg tablet 1 tab PO DAILY Qty: 28 2RF (DME) Hinged knee brace, RIGHT See Rx Instructions .Route .MEDSUPPLY Qty: 1 0RF Rx Instructions: As directed albuterol sulfate 1.25 mg/3 mL solution for nebulization 1.25 mg inhalation Q6H PRN (Reason: shortness of breath or wheezing) Qty: 15 0RF ProAir HFA 90 mcg/actuation HFA aerosol inhaler 2 inh inhalation Q6H PRN (Reason: shortness of breath or wheezing) Qty: 8.5 0RF Referrals: Alcira Guerra MD [Primary Care Provider] - Coding Level of Care Code ED Boiler Tube Blower for Yasemin Brandt
--- NOTE | 2024-07-02 00:04 | W.ED.SOB ---
HPI - SOB/Dyspnea General: Chief Complaint: Shortness of Breath/Dyspnea Stated Complaint: SOB Fever Time Seen by Provider: 07/01/24 21:29 History of Present Illness: HPI Narrative: Russel Wylie is a 68-year-old man that presents to the emergency department with complaints of fever, cough, malaise and fatigue for the last 48 hours. Tmax 102. Afebrile here. He is mildly tachypneic. He has a heart rate in the 80s to 90s. Patient's reports history that includes COPD, hypertension, hyperlipidemia, chronic kidney disease, Back in 2010 he had a similar type illness and ended up being septic. Associated symptoms: Reports chest congestion, fever(s) and orthopnea; Deny abdominal pain, chest pain, dizziness, extremity pain, nausea, palpitations, polydipsia, polyuria or vomiting Related Data Home Medications Medication Instructions Recorded Confirmed albuterol sulfate 90 mcg/actuation 1 inh inhalation QID 10/28/20 06/21/24 aerosol inhaler (ProAir HFA) gabapentin 300 mg capsule 300 mg PO BID 10/28/20 06/21/24 hydrocodone 10 mg-acetaminophen 1 tab PO Q6H PRN Pain 10/28/20 06/21/24 325 mg tablet omeprazole 20 mg capsule,delayed 20 mg PO DAILY 10/28/20 06/21/24 release tamsulosin 0.4 mg capsule 0.8 mg PO DAILY 10/28/20 06/21/24 atenolol 100 mg tablet 100 mg PO DAILY 09/22/21 06/21/24 cetirizine 10 mg capsule (All Day 10 mg PO DAILY PRN 09/22/21 06/21/24 Allergy (cetirizine)) cyclobenzaprine 10 mg tablet 10 mg PO TID PRN 09/22/21 06/21/24 losartan 25 mg tablet 25 mg PO BID 09/22/21 06/21/24 fluticasone fur. 200 mcg-umeclid 1 inh inhalation DAILY 01/15/22 06/21/24 62.5 mcg-vilant 25 mcg inhalat.powder (Trelegy Ellipta) Previous Rx's Medication Instructions Recorded albuterol sulfate 1.25 mg/3 mL 1.25 mg (3 mL) inhalation Q6H PRN 06/16/21 solution for nebulization shortness of breath or wheezing #15 mL sofosbuvir 400 mg-velpatasvir 100 1 tab PO DAILY #28 tabs 01/15/22 mg tablet (Epclusa) albuterol sulfate 90 mcg/actuation 2 inh inhalation Q6H PRN shortness 05/30/22 aerosol inhaler (ProAir HFA) of breath or wheezing #8.5 grams diclofenac sodium 3 % topical gel 1 applic topical BID 90 days #100 01/27/24 grams Hinged knee brace, RIGHT #1 ea 03/01/24 Allergies Allergy/AdvReac Type Severity Reaction Status Date / Time aspirin Allergy Unknown Verified 06/21/24 15:46 cefuroxime [From Ceftin] Allergy Unknown Verified 06/21/24 15:46 Penicillins Allergy Unknown Verified 06/21/24 15:46 Review of Systems General: Reports: 10 or more systems reviewed and unremarkable except in HPI and below Const: Reports: fever(s), chills, body aches, change in appetite, fatigue and malaise; Denies: change in weight Eyes: Denies: change in vision, eye discomfort, eye discharge or eye redness ENMT: Denies: throat pain, enlarged tonsils, odynophagia, hoarseness, ear or mastoid pain, ear discharge, change in hearing, tinnitus, nasal discharge, nasal congestion, post nasal drip or sinus pain Card: Reports: dyspnea on exertion and orthopnea; Denies: chest pain, palpitations, irregular heart rhythm, edema or leg pain with exertion Resp: Reports: dyspnea, productive cough and chest congestion; Denies: non-productive cough, wheezing or stridor GI: Denies: abdominal pain, nausea, vomiting, dysphagia, diarrhea, constipation, bloating, GI cramping or hematochezia : Denies: flank pain, dysuria, urinary frequency, urinary urgency, urinary hesitancy, oliguria or hematuria Musc: Denies: neck pain, back pain, extremity pain, joint pain, joint swelling, joint redness, joint warmth or muscle weakness Skin/Breast: Denies: rash, pruritus, erythema, photosensitivity or new lesions Neuro: Reports: confusion; Denies: headache(s), numbness in extremities, weakness in extremities, sensory changes, lack of coordination, difficulty walking, frequent falls, dizziness, Slurred speech present, difficulty communicating thoughts, seizure-like activity or involuntary movements Endo: Denies: polyuria, polydipsia or tired all the time Dejuan/Lymph: Denies: easy bruising or easy bleeding PFSH ED PFSH: Medical History Osteoarthritis of right knee COPD (chronic obstructive pulmonary disease) Chronic kidney disease Anemia Chronic renal insufficiency GERD (gastroesophageal reflux disease) Elevated brain natriuretic peptide (BNP) level Hepatitis C Rheumatoid arthritis Urolithiasis BPH loc w urin obs/LUTS Diverticulosis Surgical History H/O colonoscopy Family History Mother , at age 78 Cancer LUNG Father , at age 72 Cancer lung Social History Smoking and tobacco/nicotine status: former use of tobacco/nicotine Quit status (tobacco/nicotine): has quit using Year quit tobacco: June, Former quit date comment: 1 ppd x40 years Alcohol intake: never Marital status: Current occupational status: retired Physical Exam Const: COMMON NORMALS: no acute distress, patient oriented x3 (Oriented but does not completely appropriate) and alert GENERAL APPEARANCE: cooperative ORIENTATION/CONSCIOUSNESS: Yes awake, Yes oriented to person, Yes oriented to place and Yes oriented to time HENMT: COMMON NORMALS: normocephalic and atraumatic HEAD & SCALP: normocephalic and atraumatic FACE & SINUS: normal facial exam MOUTH: Normal oral and palatal mucosa present THROAT: posterior oropharynx normal Eye: COMMON NORMALS: Equal, round and reactive pupils present, EOMs intact bilaterally, conjunctivae normal and no scleral icterus GENERAL EYE: appearance normal, both eyes and all related structures ALIGNMENT: Yes alignment normal PERIORBITAL: periorbital findings normal CONJUNCTIVA: Yes conjunctivae normal PUPIL: Yes Equal, round and reactive pupils present Neck/C-Spine: COMMON NORMALS: full ROM GENERAL: Yes normal visual inspection Lymph: LYMPHATIC: no lymphadenopathy noted Chest: COMMONS NORMALS: normal inspection of the chest Breast/axilla inspection: Yes no chest deformity, asymmetry, normal contours, no nodules, masses, tenderness Resp: COMMON NORMALS: normal respiratory effort, No retractions and No use of accessory muscles EFFORT & INSPECTION: Yes able to speak in complete sentences, Yes symmetric chest movement, Yes tachypneic and Yes decreased respiratory effort AUSCULTATION: diminished lung sounds diffuse Cardio: COMMON NORMALS: regular rate, regular rhythm and Peripheral pulses 2+ throughout RATE: regular rate RHYTHM: regular rhythm PERIPHERAL PULSES: Peripheral pulses 2+ throughout GI: COMMON NORMALS: Normal to inspection, nondistended, normoactive bowel sounds present, Soft to palpation, non-tender and No hepatosplenomegaly present INSPECTION: Yes normal to inspection AUSCULTATION: Yes normoactive bowel sounds PALPATION: Yes Soft to palpation and Yes No hepatosplenomegaly present RECTAL EXAM: Yes deferred Extremity: COMMON NORMALS: normal to inspection GENERAL: Yes normal exam except as noted Neuro: COMMON NORMALS: patient oriented x3 (Oriented but does not completely appropriate) SENSORIUM/ORIENTATION: Yes alert, Yes oriented to person, Yes oriented to place and Yes oriented to time CRANIAL NERVES: Yes CN normal except as noted Psych: COMMON NORMALS: mental status grossly normal, Normal thought process present, cooperative, activity/motor behavior normal, denies homicidal ideation and denies suicidal ideation THOUGHT PROCESS: Normal thought process present Skin: COMMON NORMALS: no rashes or lesions noted, no wounds and turgor normal GENERAL SKIN EXAM: no rashes or lesions noted and turgor normal Course Vital Signs: Vital signs: Vital Signs Temperature 99.2 F 07/01/24 20:38 Pulse Rate 99 07/01/24 23:43 Respiratory Rate 30 H 07/01/24 23:43 Blood Pressure 182/71 07/01/24 22:35 Pulse Oximetry 93 07/01/24 23:43 Oxygen Delivery Me thod Room Air 07/01/24 22:35 MDM - SOB/Dyspnea Medical Decision Making Patient evaluated in the emergency department today for shortness of breath, cough, fever and AMS. Patient underwent chest x-ray which revealed patchy infiltrates throughout and he had a leukocytosis of 22,000. We did additional evaluation that included lactic acid which was mildly elevated and he does have elevated troponin, 25 with a delta of -1.11. Patient was treated with Levaquin but we did elect to get an ABG due to his mild mentation changes. His pH was 7.5 with this PaO2 of 68. I reviewed the case with Dr. Carroll who agreed short stay may be warranted to make sure he goes home. agrees. She relays a history where he became septic pretty quickly last time he was sick. He does have multiple comorbidities that puts him at higher risk. Hospitalist consulted for pneumonia with mild ams. Dr Joseph recommends CT head to r/o intracranial process and obs stay. Lab Data 07/01/24 21:32 07/01/24 21:32 Labs/Radiology: Radiology Impressions Chest X-Ray 07/01/24 20:41 IMPRESSION: As above. Head CT 07/02/24 00:07 IMPRESSION: Genralized atrophy, No acute intracranial abnormality. Laboratory Results WBC 22.34 10^3/uL (3.29-11.43) H 07/01/24 21:32 RBC 4.00 10^6/uL (3.85-5.65) 07/01/24 21:32 Hgb 12.50 g/dL (11.27-16.99) 07/01/24 21:32 Hct 37.3 % (37-53) 07/01/24 21:32 MCV 93.3 fl (82-101) 07/01/24 21:32 MCH 31.3 pg (27-33) 07/01/24 21:32 MCHC 33.5 g/dL (30-55) 07/01/24 21:32 RDW 12.7 % (12.1-15.1) 07/01/24 21:32 Plt Count 226 10^3/cmm (157-399) 07/01/24 21:32 MPV 9.5 fL (7.4-10.4) 07/01/24 21:32 Neut % (Auto) 79.9 % 07/01/24 21:32 Lymph % (Auto) 8.8 % 07/01/24 21:32 [place] % (Auto) 9.8 % 07/01/24 21:32 Eos % (Auto) 0.1 % 07/01/24 21:32 Baso % (Auto) 0.4 % 07/01/24 21:32 Neut # (Auto) 17.84 10^3/uL (1.8-7.7) H 07/01/24 21:32 Lymph # (Auto) 2.0 10^3/uL (0.8-4.8) 07/01/24 21:32 [place] # (Auto) 2.2 10^3/uL (0.2-0.9) H 07/01/24 21:32 Eos # (Auto) 0.0 10^3/uL (0.0-0.8) 07/01/24 21: Baso # (Auto) 0.1 10^3/uL (0.0-0.1) 07/01/24 21:32 Nucleated RBC % (auto) 0 % 07/01/24 21: Nucleated RBCs # 0.0 /100WBC 07/01/24 21:32 Specimen Type Arterial 07/01/24 23:07 Sample Site Radial, left 07/01/24 23:07 ABG pH 7.50 (7.35-7.45) H 07/01/24 23:07 ABG pCO2 32.2 mmHg (35-45) L 07/01/24 23:07 ABG pO2 68.5 mmHg (80.0-100.0) L 07/01/24 23:07 ABG PO2/FiO2 Ratio 326 07/01/24 23:07 ABG HCO3 25.0 mmol/L (22-26) 07/01/24 23:07 ABG Base Excess 2.2 mmol/L (-2.0-2.0) H 07/01/24 23:07 Wilber Test Pos 07/01/24 23:07 Hematocrit 36.1 % (42-52) L 07/01/24 23:07 O2 Delivery Device None 07/01/24 23:07 FiO2 21.0 % 07/01/24 23:07 Mobile Application Development Lead ID [place] 07/01/24 23:07 Sodium 140 mmol/L (136-145) 07/01/24 21:32 Potassium 4.1 mmol/L (3.5-5.1) 07/01/24 21: Chloride 101 mmol/L (98-107) 07/01/24 21:32 Carbon Dioxide 26 mmol/L (22-29) 07/01/24 21:32 Anion Gap 17.1 (5-19) 07/01/24 21:32 BUN 25 mg/dL (8-23) H 07/01/24 21:32 Creatinine 1.5 mg/dL (0.7-1.2) H 07/01/24 21:32 GFR Calculation 46.3 mL/min (90-130) L 07/01/24 21:32 Glucose 112 mg/dL (65-115) 07/01/24 21:32 Calculated Osmolality 295 mOsm/kg (285-295) 07/01/24 21:32 Lactic Acid 1.5 mmol/L (0.5-2.2) 07/01/24 21:32 Calcium 9.4 mg/dL (8.5-10.5) 07/01/24 21:32 Total Bilirubin 1.1 mg/dL (0.15-1.2) 07/01/24 21:32 AST 15 U/L (0-40) 07/01/24 21:32 ALT 7 U/L (0-41) 07/01/24 21: Alkaline Phosphatase 64 U/L (40-130) 07/01/24 21:32 Troponin T Baseline 25 ng/L (0-15) H 07/01/24 21:32 Troponin T 120 Minute 23.89 ng/L (0-15) H 07/01/24 22:59 Delta Troponin T -1.11 ABS# (0-10) L 07/01/24 22:59 NT-Pro-B Natriuret Pep 6270 pg/mL (0-125) H 07/01/24 21:32 Total Protein 7.0 g/dL (6.6-8.7) 07/01/24 21:32 Albumin 4.3 g/dL (3.5-5.2) 07/01/24 21:32 Globulin 2.7 g/dL (1.3-4.6) 07/01/24 21:32 Coronavirus (PCR) Negative (Negative) 07/01/24 21:35 Influenza A (PCR) Negative (Negative) 07/01/24 21:35 Influenza Type B (PCR) Negative (Negative) 07/01/24 21:35 RSV (PCR) Negative (Negative) 07/01/24 21:35 All radiology interpretation(s) finalized by discharge Discharge Plan Discharge Patient Disposition: Admitted As Inpatient Admit Provider: Rebecca Joseph Clinical Impression: Community acquired pneumonia, Hypertension, Congestive heart failure, Chronic kidney disease, Acute alteration in mental status Condition: Stable Coding Level of Care Code ED Client Support Analyst for [facility] Karly
--- NOTE | 2024-07-02 00:07 | CTR_ITS ---
PROCEDURE INFORMATION: Exam: CT Head Without Contrast Exam date and time: 07/02/2024 12:16 AM Age: 68 years old Clinical indication: Altered mental status/memory loss; Patient HX: Increasing confusion while in the er. ; Additional info: AMS TECHNIQUE: Imaging protocol: Computed tomography of the head without contrast. Radiation optimization: All CT scans at this facility use at least one of these dose optimization techniques: automated exposure control; mA and/or kV adjustment per patient size (includes targeted exams where dose is matched to clinical indication); or iterative reconstruction. COMPARISON: [place] [id number] 05/18/2023 3:52 PM RADIATION DOSE METRICS: Total DLP (mGy-cm): 3901.19 FINDINGS: Brain: There is generalized atrophy. mild periventricular white matter low densities without mass effect compatible with chronic small vessel ischemic changes. No mass effect or midline shift. No hemorrhage. Cerebral ventricles: Prominence of the ventricles and cortical sulci. Paranasal sinuses: Visualized sinuses are unremarkable. No fluid levels. Mastoid air cells: Visualized mastoid air cells are well aerated. Bones: Unremarkable. No acute fracture. Soft tissues: Unremarkable. Vasculature: There are vascular atherosclerotic calcifications carotid siphons. Notes: If there is further clinical concern for intracranial pathology, MRI of the brain may be performed for further assessment. CT/CT head wo con* [id number] IMPRESSION: Genralized atrophy, No acute intracranial abnormality.
[2024-07-02] MEDS: acetaminophen 325 mg Tablet 650 MG PO ×4 (01:03→20:39)
--- NOTE | 2024-07-02 01:21 | P.HP_ITS ---
Providers/Chief Complaint 2 Admitting Physician: Rebecca Joseph MD Primary Care Provider: Alcira Guerra MD Chief Complaint: SOB Fever History of Present Illness Russel Wylie is a 68 year old male with past medical history of COPD, anemia, BPH, CKD, GERD, history of COVID-20 June 2021, history of rheumatoid arthritis with history of recurrent pneumonias for which he used to follow-up with pulmonology. He was suspected to have aspiration and was recommended to undergo swallow study, however I do not see any results in the system for it currently. He presents to the emergency room today with chief complaints of chest tightness for the last 2 to 3 days. He states that he feels like he is getting congested. He is having increased cough and mucus production for the last 3 to 4 days. He states that change to winter season always seems to give him trouble . He has had 2 courses of doxycycline treatment at the past month. He typically uses oxygen 2 L/min at nighttime, however today is needing it once a day as well. He was reported to be lethargic, having altered mental status upon first arriving in the emergency room today. However at the time of my assessment patient is awake alert oriented and able to provide his own history. He has listed allergies to cefuroxime and penicillins, however he states he does not remember the reaction to bees. He states he was told by his primary care physician not to take these medications. Review of Systems 2 General: Reports: 10 or more systems reviewed and unremarkable except in HPI and below Const: Denies: fever(s), chills or body aches Eyes: Denies: change in vision, blurry vision or photophobia ENMT: Reports: hoarseness; Denies: throat pain, enlarged tonsils, odynophagia or nasal congestion Card: Denies: chest pain, palpitations, irregular heart rhythm, edema, swelling of feet/ankles, lightheadedness, pre-syncope, dyspnea on exertion or orthopnea Resp: Denies: dyspnea, productive cough, non-productive cough, wheezing, stridor, pain on inspiration, change in phlegm color, hemoptysis or chest congestion GI: Denies: abdominal pain, nausea, vomiting, hematemesis, coffee ground emesis, dysphagia, heartburn, diarrhea, constipation, GI cramping, change in stool character, hematochezia or melena : Denies: flank pain, dysuria, urinary frequency, urinary urgency, urinary hesitancy or hematuria Musc: Denies: neck pain, back pain, extremity pain, joint swelling, joint warmth or deformity Neuro: Denies: headache(s), numbness in extremities, weakness in extremities, sensory changes, difficulty walking, frequent falls, dizziness, vertigo, behavioral changes, Slurred speech present or seizure-like activity Psych: Denies: anxiety, depression, suicidal ideation or homicidal ideation Endo: Denies: polyuria, polydipsia, tired all the time, cold intolerance or hot flashes Dejuan/Lymph: Denies: easy bruising or easy bleeding Medications/Allergies Home Medications Medication Instructions Recorded Confirmed Last Taken Type gabapentin 300 mg capsule 300 mg PO BID 10/28/20 07/02/24 07/01/24 History hydrocodone 10 mg-acetaminophen 1 tab PO Q6H PRN Pain 10/28/20 07/02/24 07/01/24 History 325 mg tablet omeprazole 20 mg capsule,delayed 20 mg PO DAILY 10/28/20 07/02/24 07/01/24 History release tamsulosin 0.4 mg capsule 0.8 mg PO DAILY 10/28/20 07/02/24 07/01/24 History albuterol sulfate 1.25 mg/3 mL 1.25 mg (3 mL) inhalation Q6H PRN 06/16/21 07/02/24 07/01/24 Rx solution for nebulization shortness of breath or wheezing #15 mL atenolol 100 mg tablet 100 mg PO DAILY 09/22/21 07/02/24 07/01/24 History cetirizine 10 mg capsule (All Day 10 mg PO DAILY PRN Allergy Symptoms 09/22/21 07/02/24 07/01/24 History Allergy (cetirizine)) cyclobenzaprine 10 mg tablet 10 mg PO TID PRN Muscle Spasm 09/22/21 07/02/24 07/01/24 History losartan 25 mg tablet 25 mg PO BID 09/22/21 07/02/24 07/01/24 History fluticasone fur. 200 mcg-umeclid 1 inh inhalation DAILY 01/15/22 07/02/24 07/01/24 History 62.5 mcg-vilant 25 mcg inhalat.powder (Trelegy Ellipta) albuterol sulfate 90 mcg/actuation 2 inh inhalation Q6H PRN shortness 05/30/22 07/02/24 07/01/24 Rx aerosol inhaler (ProAir HFA) of breath or wheezing #8.5 grams diclofenac sodium 3 % topical gel 1 applic topical BID 90 days #100 01/27/24 07/02/24 07/01/24 Rx grams Hinged knee brace, RIGHT #1 ea 03/01/24 07/02/24 07/01/24 Rx Allergies Allergy/AdvReac Type Severity Reaction Status Date / Time aspirin Allergy Unknown Verified 06/21/24 15:46 cefuroxime [From Ceftin] Allergy Unknown Verified 06/21/24 15:46 Penicillins Allergy Unknown Verified 06/21/24 15:46 PFSH Acute 2 PFSH: Medical History Osteoarthritis of right knee COPD (chronic obstructive pulmonary disease) Chronic kidney disease Anemia Chronic renal insufficiency GERD (gastroesophageal reflux disease) Elevated brain natriuretic peptide (BNP) level Hepatitis C Rheumatoid arthritis Urolithiasis BPH loc w urin obs/LUTS Diverticulosis Surgical History H/O colonoscopy Family History Mother , at age 78 Cancer LUNG Father , at age 72 Cancer lung Social History Smoking and tobacco/nicotine status: former use of tobacco/nicotine Quit status (tobacco/nicotine): has quit using Year quit tobacco: June, Former quit date comment: 1 ppd x40 years Alcohol intake: never Marital status: Current occupational status: retired Vitals/I&O/Wt Last Vital Signs Temp 99.5 F 07/02/24 00:52 Pulse 99 07/02/24 00:52 Resp 30 H 07/01/24 23:43 BP 178/84 07/02/24 00:52 Pulse Ox 94 07/02/24 00:52 O2 Del Method Room Air 07/01/24 22:35 Weight last 48 hrs Weight 89.811 kg Physical Exam 2 Narrative: General: No acute distress, AO x3 HEENT: PERRLA, pupils bilaterally equal and reactive, pallors not present Chest: Scattered wheezing to auscultation bilaterally. CVS: S1-S2 regular, no murmurs, no tachycardia, no gallops, no rubs Abdomen: Soft, nontender, no organomegaly, bowel sounds present Neuro: No focal deficits, no facial deformity, AO x3, power 5/5 in all limbs Data 07/03/24 03:23 07/03/24 03:23 Micro: Microbiology 07/02/24 00:06 Blood Culture - Preliminary Blood SPECIMEN COLLECTED 07/02/24 00:02 Blood Culture - Preliminary Blood SPECIMEN COLLECTED A&P Assessment and plan (1) Failure of outpatient treatment: (2) Community acquired pneumonia: Plan 68-year-old male presenting today with chief complaints of worsening cough and expectoration and shortness of breath over the last 3 to 4 days. Chest x-ray shows left lung base opacities likely to be infectious versus inflammatory in etiology. He has had outpatient 2 courses of doxycycline without improvement. Admit to [facility] given failure of outpatient treatment Start treatment with IV levofloxacin 750 mg daily given listed allergies. Patient does not recall the exact nature of his allergy, however at this time does not want me to try cephalosporins. No scattered wheezing to auscultation , Will place him on DuoNeb evaluation every 6 hours scheduled, budesonide 0.5 mg twice daily. Holding off on steroids for now. DVT prophylaxis: Lovenox 40 mg subcutaneously every 24 hours Full code Attestations 2 Medical Necessity Statement*: less than 2 midnight stay is anticipated. Coding Level of Care Code Acute Code for [facility] Diagnoses Failure of outpatient treatment Z78.9 Community acquired pneumonia J18.9
--- NOTE | 2024-07-02 02:41 | ECG_ITS ---
[employer] Test Date: 2024-07-02 Pat Name: Russel Wylie Department: Room: 278 Gender: Male Planning Rn: : 1955 Requested By: Demond Mejia Order Number: [id number] Ilene MD: Mike Henning M.D. Measurements Intervals Ivins Rate: 84 P: 77 ME: 167 QRS: 76 QRSD: 76 T: 74 QT: 353 QTc: 417 Interpretive Statements SINUS RHYTHM SEPTAL MYOCARDIAL INFARCTION , OF INDETERMINATE AGE [40+ ms Q WAVE IN V1/V2] Compared to ECG 07/01/2024 22:33:40 Myocardial infarct finding now present ST (T wave) deviation no longer present Electronically Signed On 07-02-2024 19:02:22 [employer] by Mike Henning M.D. [email or web address]
[2024-07-02 03:50] LABS: Troponin 5 6HR 30.15 ng/L (0-15); Troponin 5 6HR Delta 5.15 ng/L (0-12)
[2024-07-02 05:23] LABS: D Dimer 2.16 ug/mLFEU (0-0.59)
--- NOTE | 2024-07-02 06:59 | USR_ITS ---
PROCEDURE INFORMATION: Exam: US Duplex Lower Extremity Veins, Bilateral Exam date and time: 07/02/2024 3:49 PM Age: 68 years old Clinical indication: Screening exam; Additional info: Assesss ffor dvt TECHNIQUE: Imaging protocol: Real-time duplex ultrasound of the bilateral extremities with 2-D sinclair scale, color Doppler flow and spectral waveform analysis including responses to compression and other maneuvers (when performed) with image documentation. Complete exam focused on the lower extremity veins. COMPARISON: US renal BI* [id number] 03/13/2024 10:17 AM FINDINGS: Right deep veins: Unremarkable. The common femoral, femoral, proximal profunda femoral and popliteal veins are patent without thrombus. Normal Doppler waveforms. Normal compressibility and/or augmentation response. Left deep veins: Unremarkable. The common femoral, femoral, proximal profunda femoral and popliteal veins are patent without thrombus. Normal Doppler waveforms. Normal compressibility and/or augmentation response. Superficial veins: Greater saphenous veins at the saphenofemoral junctions are patent bilaterally without thrombus. Soft tissues: Unremarkable. US/[place] [id number] IMPRESSION: No evidence of deep vein thrombosis.
[2024-07-02] MEDS: budesonide 0.5 mg/2 mL Neb INHALATION ×2 (09:04→20:15)
[2024-07-02] MEDS: ipratropium-albuterol 3 mL Neb INHALATION ×3 (09:04→20:15)
[2024-07-02] MEDS: tamsulosin 0.4 mg Capsule 0.8 MG PO (09:27)
[2024-07-02] MEDS: benzonatate 100 mg Capsule PO (09:28)
[2024-07-02] MEDS: pantoprazole DR 40 mg Tablet PO (09:28)
[2024-07-02] MEDS: atenolol 50 mg Tablet 100 MG PO (09:28)
[2024-07-02] MEDS: losartan 50 mg Tablet 25 MG PO (09:28)
[2024-07-02] MEDS: ondansetron 2 mg/ML SDV 2 mL 4 MG IVP (09:29)
--- NOTE | 2024-07-02 10:24 | CTR_ITS ---
PROCEDURE INFORMATION: Exam: CT Chest Without Contrast; Diagnostic Exam date and time: 07/02/2024 10:47 AM Age: 68 years old Clinical indication: Shortness of breath; Additional info: Copd/pna TECHNIQUE: Imaging protocol: Diagnostic computed tomography of the chest without contrast. Radiation optimization: All CT scans at this facility use at least one of these dose optimization techniques: automated exposure control; mA and/or kV adjustment per patient size (includes targeted exams where dose is matched to clinical indication); or iterative reconstruction. COMPARISON: CT angio chest PE protcl [id number] 08/06/2021 10:26 AM RADIATION DOSE METRICS: Total DLP (mGy-cm): 613.3 FINDINGS: Lungs: Incidentally noted azygos fissure. Multifocal patchy consolidations with surrounding hazy ground-glass opacity and tree-in-bud micro nodularity seen in the right upper, middle and lower lobes. Additional foci patchy ground-glass opacification with consolidative changes seen in the left lower lobe and lingula. Pleural spaces: Unremarkable. No pneumothorax. No pleural effusion. Heart: Unremarkable. No cardiomegaly. No pericardial effusion. Coronary arteries: Severe coronary artery calcium. Lymph nodes: Prominent mediastinal lymph nodes largest of which measures 11 mm in the short axis. Likely reactive in etiology. 1 cm gastrohepatic lymph node indeterminate in etiology. Vasculature: Calcification of the aortic arch. Kidneys: Trace perinephric edema bilaterally. Bones/joints: Mild multilevel degenerative disease of the thoracic spine. Soft tissues: Unremarkable. CT/CT chest [facility] [id number] IMPRESSION: 1. Multifocal patchy consolidative, ground-glass and tree-in-bud micronodular opacities in the bilateral lungs right greater than left concerning for multifocal pneumonia. Presumable reactive mediastinal lymph nodes. 2. Calcification of the aortic arch and severe coronary artery calcium.
--- NOTE | 2024-07-02 10:24 | USCV_ITS ---
Dejan Russel Age: 68 Gender: M : 1955 Exam Date: 07/02/2024 16:29 Ordering Phys: Sandip Gumaan MD Technologist: Carlos Alberto Lacy Exam Location: [facility] Indication: chf BP: 177 / 78 HR: 81 Rhythm: Sinus Technical Quality: Adequate MEASUREMENTS (Male / Female) Normal Values 2D ECHO LV Diastolic Diameter PLAX 5.3 cm 4.2 - 5.9 / 3.9 - 5.3 cm IVS Diastolic Thickness 1.6 cm 0.6 - 1.0 / 0.6 - 0.9 cm IVS Systolic Thickness 1.5 cm LVPW Diastolic Thickness 1.5 cm 0.6 - 1.0 / 0.6 - 0.9 cm LVPW Systolic Thickness 2.2 cm LVOT Diameter 2.1 cm LV Ejection Fraction 2D Teich 69.2 % LV Ejection Fraction MOD 4C 72.7 % LV Ejection Fraction MOD 2C 59.6 % LV Ejection Fraction 2C AL 62.8 % LA Diameter 3.6 cm RA Systolic Volume 4C AL 39.0 ml RA Systolic Volume 4C MOD 37.9 ml LA Sys Volume AL 73.0 cm cubed LA Sys Volume Index AL 34.2 cm cubed/m squared Aorta at Sinotubular Diameter 2.1 cm IVC Diameter 1.7 cm M-MODE LA Ao Ratio MM 1.5 AV Cusp Separation MM 1.2 cm DOPPLER AV Peak Velocity 176.0 cm/s LVOT Peak Velocity 122.0 cm/s AV Area Cont Eq vti 3.0 cm squared AV Area Cont Eq pk 2.4 cm squared MV Peak Velocity 102.0 cm/s MV Area PHT 5.0 cm squared Mitral E to A Ratio 0.6 TV Peak Velocity 223.6 cm/s TR Peak Velocity 245.0 cm/s TR Peak Gradient 24.0 mmHg TR Mean Velocity 193.0 cm/s TR Mean Gradient 16.1 mmHg TR Velocity Time Integral 63.2 cm PV Peak Velocity 186.0 cm/s RV Ejection Time 0.3 s FINDINGS Left Ventricle Left ventricle is normal in size. LV systolic function is normal with EF 55 to 60%. No regional wall motion abnormalities are seen. Grade 1 diastolic dysfunction. Right Ventricle Normal in size and function Right Atrium Normal in size Left Atrium Normal in size Mitral Valve Mild mitral annular calcification. Mild mitral regurgitation. Aortic Valve Structurally normal aortic valve. No significant stenosis or regurgitation. Tricuspid Valve Insufficient TR jet to calculate RVSP Pulmonic Valve Not well visualized Pericardium Normal Aorta Normal in size IVC Appears to be normal CONCLUSIONS LV systolic function is normal with EF of 55 to 60%. Grade 1 diastolic dysfunction. Mild mitral regurgitation Compared to prior echocardiogram from 2021, no significant changes are seen. Mike Henning MD (Electronically Signed) Final Date: 02 July 2024 18:44 S
[2024-07-02 10:38] LABS: Basophils # 0.1 10^3/uL (0.0-0.1); Basophils % 0.2 %; Hematocrit 32.3 % (37-53); Lymphocytes # 1.7 10^3/uL (0.8-4.8); Lymphocytes % 7.6 %; Mean Corpuscular HGB Conc 33.7 g/dL (30-55); Mean Corpuscular Hemoglobin 31.1 pg (27-33); Mean Corpuscular Volume 92.3 fl (82-101); Mean Platelet Volume 10.5 fL (7.4-10.4); Monocytes # 2.6 10^3/uL (0.2-0.9); Monocytes % 11.4 %; Neutrophils # 17.91 10^3/uL (1.8-7.7); Neutrophils % 79.8 %; Nucleated Red Blood Cells % 0 %; Platelet Count 213 10^3/cmm (157-399); Red Cell Distribution Width 12.9 % (12.1-15.1); White Blood Count 22.44 10^3/uL (3.29-11.43)
[2024-07-02 10:55] LABS: Estmated Average Glucose 103; Hemoglobin A1C 5.2 % (4.0-6.0)
[2024-07-02 11:14] LABS: Procalcitonin 0.42 ng/mL (0-0.5); Thyroid Stimulating Hormone 0.34 uIU/mL (0.27-4.20); Vitamin B12 292 pg/mL (232-1245)
[2024-07-02 11:26] LABS: Alanine Aminotransferase 6 U/L (0-41); Albumin Level 3.7 g/dL (3.5-5.2); Alkaline Phosphatase 51 U/L (40-130); Anion Gap 9.9 (5-19); Aspartate Amino Transferase 20 U/L (0-40); Blood Urea Nitrogen 25 mg/dL (8-23); Calcium 9.1 mg/dL (8.5-10.5); Carbon Dioxide 28 mmol/L (22-29); Chloride 96 mmol/L (98-107); Creatinine Clr Calc Pharmacy 50.4301; Globulin 2.1 g/dL (1.3-4.6); Glomerular Filtration Rate 42.9 mL/min (90-130); Glucose 111 mg/dL (65-115); Iron 10 ug/dL (59-158); Osmolality Calculated 275 mOsm/kg (285-295); Percent Saturation 4.7 % (20-50); Potassium 3.9 mmol/L (3.5-5.1); Sodium 130 mmol/L (136-145); Total Bilirubin 0.9 mg/dL (0.15-1.2); Total Iron Binding Capacity 211 mcg/dl; Total Protein 5.8 g/dL (6.6-8.7); Unsaturated Iron Binding 201 ug/dL (112-347)
[2024-07-02] MEDS: linezolid 600 mg Tablet PO (11:27)
[2024-07-02 12:15] LABS: Amphetamines Screen Urine Negative (Negative); Barbiturates Screen Urine Negative (Negative); Benzodiazepines Screen Urine Negative (Negative); Cocaine Screen Urine Negative (Negative); Opiate Screen Urine Positive (Negative); PCP Screen Urine Negative (Negative); THC Screen Urine Positive (Negative)
[2024-07-02 12:18] LABS: Potassium, Radom Urine 49 mmol/L; Urine Random Chloride 53 mmol/L; Urine Random Sodium 49 mmol/L
[2024-07-02] MEDS: amlodipine 10 mg Tablet PO (12:53)
[2024-07-02] MEDS: ALPRAZolam 0.5 mg Tablet PO ×2 (12:53→20:40)
[2024-07-02] MEDS: cefTRIAXone 1,000 mg SDV 1000 MG IVP (12:53)
[2024-07-02 13:19] LABS: MRSA PCR OZH (swab) NOT DETECTED (Negative)
--- NOTE | 2024-07-02 14:14 | P.PN_ITS ---
Subjective 2 Subjective: Admitted overnight. On examination patient laying comfortably in bed, seems anxious, states he is finding hard to eat so has been saturating more than 90% on room air. As per patient he has been having difficulty in breathing along with excess cough on and off for more than 1 month for which she has been treated as an outpatient with doxycycline twice by his PCP. He is also complaining of headache. He also states he thinks that somebody at his work had a strep throat. Denies any nausea, vomiting, headache. Does not check his blood pressures at home. Is compliant with his medications. Not sure what medications he is on but is able to show a medication list. States he is on 2 L of oxygen every night. Medications: Medication Review Details: Losartan 100 mg oral daily Atenolol 100 mg oral daily Amlodipine 10 mg oral daily Gabapentin 300 mg twice daily Flomax 0.8 mg oral daily Vitals/I&O/Wt Last Vital Signs Temp 98.1 F 07/02/24 11:48 Pulse 71 07/02/24 13:20 Resp 18 07/02/24 13:19 BP 177/78 07/02/24 13:20 Pulse Ox 94 07/02/24 13:19 O2 Del Method Room Air 07/02/24 13:19 O2 Flow Rate 2 07/02/24 09:04 07/01/24 07/02/24 07/02/24 22:59 06:59 14:59 Intake Total 240 / 240 120 / 120 Balance 240 / 240 120 / 120 Weight last 48 hrs Weight 87.634 kg Weight 87.634 kg Weight 87.634 kg Weight 89.811 kg Physical Exam 2 Narrative: General: No acute distress, AO x3, anxious HEENT: PERRLA, pupils bilaterally equal and reactive Chest: Normal vesicular breath sounds, occasional coarse crackles with rhonchi's spread diffusely, right more than left, equal good air entry bilaterally CVS: S1-S2 regular, no murmurs, no tachycardia, no gallops, no rubs Abdomen: Soft, nontender, no organomegaly, bowel sounds present Neuro: No focal deficits, no facial deformity, AO x3, power 5/5 in all limbs Data 07/02/24 03:21 07/02/24 03:21 Micro: Microbiology 07/02/24 11:51 Legionella Urinary Antigen - Final Urine,Voided Bacterial Antigens - Final 07/02/24 00:06 Blood Culture - Preliminary Blood SPECIMEN COLLECTED 07/02/24 00:02 Blood Culture - Preliminary Blood SPECIMEN COLLECTED A&P Assessment and plan (1) Shortness of breath: Most likely in setting of community-acquired pneumonia. Patient saturating well on room air. But does have increased work of breathing. Cannot rule out congestive heart failure given uncontrolled hypertension. Oxygen supplementation keeping saturation over 90%. Can place on low-flow 1 L oxygen to decrease work of breathing. Continue with 2 L nightly as home. D-dimer mildly elevated. Unfortunately cannot do CTA given history of CKD. Check lower limb Dopplers. Patient does not have any tachycardia. For now no concerns for PE. Pulmicort twice daily, DuoNebs every 6 hour. (2) Community acquired pneumonia: Failure to outpatient treatment. Has been treated with doxycycline twice as an outpatient. Check MRSA swab, sputum culture, bacterial antigen. Patient is allergic to penicillin. Gives history of severe heartburn with cefadroxil. Is agreeable to try ceftriaxone. Continue with Levaquin. Add IV ceftriaxone [address] chest without contrast. (3) Chronic kidney disease: Baseline creatinine 1.5-2.1. Medical reconciliation done for nephrotoxic drugs. Creatinine at baseline for now. Monitor daily. (4) Uncontrolled hypertension: Goal blood pressure less than 140/90 mmHg. Blood pressure is elevated. For now continue with home dose of atenolol, plan for hydralazine 10 mg every 4 hours as needed for systolic of more than 160 mmHg. Uptitrate as per goal blood pressures. Check echocardiogram. Concerns for congestive heart failure. (5) Anxiety: This chronic history. Not on any medication as an outpatient. Agreeable to Xanax 0.5 3 times daily. (6) Dizziness: Could be in setting of uncontrolled hypertension versus hypoxia. CT head negative on admission. Check orthostatic blood pressures. Treatment for hypoxia and increased work of breathing as above. Check urine drug screen. (7) Failure of outpatient treatment: Plan Full code Cardiac diet Protonix for PUD prophylaxis Lovenox for DVT prophylaxis Attestations 2 Medical Necessity Statement*: Requires further hospitalization for management of shortness of breath in setting of community-acquired pneumonia, uncontrolled hypertension, dizziness Diagnoses Shortness of breath R06.02 Community acquired pneumonia J18.9 Chronic kidney disease N18.9 Uncontrolled hypertension I10 Anxiety F41.9 Dizziness R42 Failure of outpatient treatment Z78.9
[2024-07-02 15:25] LABS: Bilirubin Urine Negative (Negative); Blood Urine Negative (Negative); Glucose Urine UA Negative (Normal); Ketones Urine Negative (Negative); Leukocyte Esterase Urine Negative (Negative); Nitrate Urine Negative (Negative); Protein Urine 1+ (Negative); Specific Gravity, Urine 1.014 (1.005-1.030); Urine Appearance Clear (CLEAR); Urine Color Yellow (Yellow)
[2024-07-02 15:30] LABS: Add Urine Microscopic? YES; Bacteria Urine None Seen /hpf; Hyaline Casts Urine 0-4 /lpf; RBC Urine 0-2 /hpf (0-2); Squamous Epithelial Cell Urine 0-5 /hpf (0-5); WBC Urine 0-5 /hpf (0-5)
[2024-07-02] MEDS: levofloxacin-dextrose 5 % 750 MG/150 ML PREMIX 100 MG IV (16:26)
[2024-07-03] VITALS (7 sets, daily range): BP systolic 132–173; BP diastolic 61–80; PULSE 78–90; RESP 17–19; TEMP 36.6–37.1; O2SAT 95–98
[2024-07-03 03:55] LABS: Basophils # 0.1 10^3/uL (0.0-0.1); Basophils % 0.3 %; Eosinophils # 0.1 10^3/uL (0.0-0.8); Eosinophils % 0.3 %; Hematocrit 33.4 % (37-53); Lymphocytes % 10.4 %; Mean Corpuscular HGB Conc 34.1 g/dL (30-55); Mean Corpuscular Hemoglobin 31.8 pg (27-33); Mean Platelet Volume 9.8 fL (7.4-10.4); Monocytes % 10.5 %; Neutrophils # 14.55 10^3/uL (1.8-7.7); Neutrophils % 77.4 %; Nucleated Red Blood Cells % 0 %; Platelet Count 212 10^3/cmm (157-399); Red Blood Count 3.59 10^6/uL (3.85-5.65)
[2024-07-03 04:12] LABS: Alanine Aminotransferase 9 U/L (0-41); Albumin Level 3.8 g/dL (3.5-5.2); Alkaline Phosphatase 56 U/L (40-130); Anion Gap 14.2 (5-19); Aspartate Amino Transferase 34 U/L (0-40); Blood Urea Nitrogen 30 mg/dL (8-23); Calcium 9.5 mg/dL (8.5-10.5); Carbon Dioxide 28 mmol/L (22-29); Chloride 100 mmol/L (98-107); Creatinine Clr Calc Pharmacy 44.6406; Globulin 3.2 g/dL (1.3-4.6); Glomerular Filtration Rate 37.5 mL/min (90-130); Glucose 98 mg/dL (65-115); Osmolality Calculated 292 mOsm/kg (285-295); Potassium 4.2 mmol/L (3.5-5.1); Sodium 138 mmol/L (136-145); Total Bilirubin 0.6 mg/dL (0.15-1.2)
[2024-07-03 04:15] LABS: Chol HDL Ratio 4.69 mg/dL (1.0-5.00); Cholesterol 169 mg/dL (0-200); HDL Cholesterol 36 mg/dL (60-100); LDL Cholesterol Calculated 107 mg/dL (50-129); Magnesium 1.3 mg/dL (1.7-2.3); Triglycerides 132 mg/dL (0-150); VLDL Cholestrol Calculation 26 mg/dL (0-30)
[2024-07-03 04:28] LABS: Folate Level 9.8 ng/mL (4.5-32.2)
[2024-07-03] MEDS: pantoprazole DR 40 mg Tablet PO (08:02)
[2024-07-03] MEDS: tamsulosin 0.4 mg Capsule 0.8 MG PO (08:02)
[2024-07-03] MEDS: losartan 50 mg Tablet PO (09:46)
[2024-07-03] MEDS: amlodipine 10 mg Tablet PO (09:46)
[2024-07-03] MEDS: atenolol 50 mg Tablet 100 MG PO (09:46)
--- NOTE | 2024-07-03 10:20 | PC.CHAP ---
Pastoral Care Encounter/Spiritual Assessment Type of Contact [] Declined chemical laboratory tester visit [] Patient/Family/Request visit [] Outpatient visit [] Follow-up visit [] Physician referral [] Code/Alert [x] Routine visit [] Staff referral [] Actively dying [x] Patient sleeping [] Family support [] [] Out of room [] Palliative care [] [] Receiving care in room [] Pre-surgical visit [] Trauma [] Long length of stay [] ICU visit [] Other: Relational/Emotional Strength [] Patient feels connected with others/family/visitors/staff [] Distress [] Loneliness/isolation [] Abandonment Spirituality of Patient [] Person of Annette [] Attends Amish of their Annette [] Believes in Prayer [] Reads Bible or Tenriism materials [] There are Spiritual issues to be addressed Entry Level Receptionist Interventions [] Prayer [] Active listening [] Non-anxious presence [] Spiritual/emotional support [] Crisis/trauma care [] Spiritual counseling [] Bereavement support [] Provided bereavement packet [] Provided Bible/devotional materials [] Provided toy/stuffed animal, coloring book to patient or family member [] Provided Communion [] Anointing/[place] [] Salvation [] Completed spiritual assessment [] Other: Impact on Illness or Injury [] Angry [] Fearful [] Anxious [] Often cries [] Exhaustion [] Unable to work [] Unable to attend mormonism [] Unable to walk/stand [] Unable to read [] Unable to drive [] Unable to eat/drink [] Unable to sleep [] Unable to be with family [] Patient intubated [] Other: Summary Time spent with patient
--- NOTE | 2024-07-03 12:07 | P.DS_ITS ---
Discharge Providers Date of Admission: 07/02/24 00:46 Date of Discharge: July 03, 2024 Attending Provider at Admission: Rebecca Joseph MD Attending Provider at Discharge: David Lopez Primary Care Provider: Alcira Guerra MD Diagnoses at Discharge Discharge Diagnosis (1) Failure of outpatient treatment: Status: Acute (2) Community acquired pneumonia: Status: Acute Reason for Visit Reason for Visit: SOB Fever Brief History: Russel Wylie is a 68 year old male with past medical history of COPD, anemia, BPH, CKD, GERD, history of COVID-20 June 2021, history of rheumatoid arthritis with history of recurrent pneumonias for which he used to follow-up with pulmonology. He was suspected to have aspiration and was recommended to undergo swallow study, however I do not see any results in the system for it currently. He presents to the emergency room today with chief complaints of chest tightness for the last 2 to 3 days. He states that he feels like he is getting congested. He is having increased cough and mucus production for the last 3 to 4 days. He states that change to winter season always seems to give him trouble . He has had 2 courses of doxycycline treatment at the past month. He typically uses oxygen 2 L/min at nighttime, however today is needing it once a day as well. He was reported to be lethargic, having altered mental status upon first arriving in the emergency room today. However at the time of my assessment patient is awake alert oriented and able to provide his own history. He has listed allergies to cefuroxime and penicillins, however he states he does not remember the reaction to bees. He states he was told by his primary care physician not to take these medications. Hospital Course Hospital Course He was admitted and treated for community-acquired pneumonia which had not responded to doxycycline as outpatient. Started on Levaquin, ceftriaxone was added as well. Received breathing treatments. Urine bacterial antigens were negative. Sputum cultures pending. Blood cultures so far negative. White blood cell count 22,000 on presentation now is showing improvement but still elevated at 18.8. He has had no further fever episodes since 101.9 night before last. He is not requiring oxygen supplementation. Symptomatically he is feeling much better asks to be discharged, does not want to continue hospitalization. Discussed with him regarding still elevated white count, not optimally controlled blood pressure with orthostasis, as well as suboptimal renal function with some creatinine rise from 1.5 on admit to 1.8 today. He would still like to discharge, will continue medications as outpatient, knows to watch out for any abnormal symptoms as relating to adverse effect of medication versus worsening condition and to seek medical attention immediately. Please follow-up for resolution of pneumonia, follow-up sputum culture, blood culture. Please follow-up for resolution of lung opacities. While in the hospital his medications were also optimized for management of poorly controlled hypertension. Blood pressures elevated on admission as high as 180/90. His losartan dose was increased to 50 mg twice daily. Transiently on amlodipine in the hospital, but is found to be orthostatic with blood pressure lying 177/78, standing 123/71. He is aware of history of orthostasis. Will not continue amlodipine. Encouraged to maintain orthostatic precautions. Please continue to optimize cardiovascular risk factors and follow-up with incidentally shown coronary calcifications. Physical Exam Const: COMMON NORMALS: patient oriented x3 and alert GENERAL APPEARANCE: cooperative ORIENTATION/CONSCIOUSNESS: Yes awake HENMT: COMMON NORMALS: oropharynx normal Neck/C-Spine: COMMON NORMALS: no JVD Resp: COMMON NORMALS: normal respiratory effort and clear to auscultation bilaterally AUSCULTATION: clear to auscultation bilaterally Cardio: COMMON NORMALS: no JVD, regular rhythm, S1 normal heart sound present, S2 normal heart sound present and No murmurs present (Cardio) RHYTHM: regular rhythm HEART SOUNDS: S1 normal heart sound present and S2 normal heart sound present GI: COMMON NORMALS: Normal to inspection, nondistended, normoactive bowel so unds present, Soft to palpation and non-tender PALPATION: Yes Soft to palpation Extremity: COMMON NORMALS: no joint enlargement and no pedal edema Neuro: COMMON NORMALS: patient oriented x3 and moves all extremities SENSORIUM/ORIENTATION: Yes alert Skin: COMMON NORMALS: no rashes or lesions noted GENERAL SKIN EXAM: no rashes or lesions noted Discharge Data Studies Completed and Pending Completed Studies During Hospitalization Category Date Time Status CT chest wo con [id number] Urgent Cat Scan 07/02/24 10:[address] head wo con* [id number] Stat Cat Scan 07/02/24 00:07 Completed XR chest 1V portable [id number] Stat Exams 07/01/24 20:41 [place] [id number] Routine Ultrasound 07/02/24 06:59 Completed CV. echo complete* [id number] Routine Ultrasound 07/02/24 10:24 Completed Pending at discharge Category Date Time Status Basic Metabolic Panel AM LABS Lab 07/04/24 04:00 Ordered Basic Metabolic Panel AM LABS Lab 07/05/24 04:00 Ordered Basic Metabolic Panel AM LABS Lab 07/06/24 04:00 Ordered Blood Culture Stat Lab 07/01/24 23:58 Results Complete Blood Count w/Auto AM LABS Lab 07/04/24 04:00 Ordered Complete Blood Count w/Auto AM LABS Lab 07/05/24 04:00 Ordered Complete Blood Count w/Auto AM LABS Lab 07/06/24 04:00 Ordered MAG [Magnesium] AM LABS Lab 07/04/24 04:00 Ordered MAG [Magnesium] AM LABS Lab 07/05/24 04:00 Ordered Sputum Culture and Gram Stain Stat Lab 07/02/24 20:09 Received Radiology Impressions Chest X-Ray 07/01/24 20:41 IMPRESSION: As above. Head CT 07/02/24 00:07 IMPRESSION: Genralized atrophy, No acute intracranial abnormality. Venous Duplex 07/02/24 06:59 IMPRESSION: No evidence of deep vein thrombosis. Chest CT 07/02/24 10:24 IMPRESSION: 1. Multifocal patchy consolidative, ground-glass and tree-in-bud micronodular opacities in the bilateral lungs right greater than left concerning for multifocal pneumonia. Presumable reactive mediastinal lymph nodes. 2. Calcification of the aortic arch and severe coronary artery calcium. Laboratory Results WBC 18.80 10^3/uL (3.29-11.43) H 07/03/24 03:23 RBC 3.59 10^6/uL (3.85-5.65) L 07/03/24 03:23 Hgb 11.40 g/dL (11.27-16.99) 07/03/24 03:23 Hct 33.4 % (37-53) L 07/03/24 03:23 MCV 93.0 fl (82-101) 07/03/24 03:23 MCH 31.8 pg (27-33) 07/03/24 03:23 MCHC 34.1 g/dL (30-55) 07/03/24 03:23 RDW 13.0 % (12.1-15.1) 07/03/24 03:23 Plt Count 212 10^3/cmm (157-399) 07/03/24 03:23 MPV 9.8 fL (7.4-10.4) 07/03/24 03:23 Neut % (Auto) 77.4 % 07/03/24 03:23 Lymph % (Auto) 10.4 % 07/03/24 03:23 Mchenry % (Auto) 10.5 % 07/03/24 03:23 Eos % (Auto) 0.3 % 07/03/24 03:23 Baso % (Auto) 0.3 % 07/03/24 03:23 Neut # (Auto) 14.55 10^3/uL (1.8-7.7) H 07/03/24 03:23 Lymph # (Auto) 2.0 10^3/uL (0.8-4.8) 07/03/24 03:23 Mchenry # (Auto) 2.0 10^3/uL (0.2-0.9) H 07/03/24 03:23 Eos # (Auto) 0.1 10^3/uL (0.0-0.8) 07/03/24 03:23 Baso # (Auto) 0.1 10^3/uL (0.0-0.1) 07/03/24 03:23 Nucleated RBC % (auto) 0 % 07/03/24 03:23 Nucleated RBCs # 0.0 /100WBC 07/03/24 03:23 D-Dimer 2.16 ug/mLFEU (0-0.59) H 07/02/24 04:14 Specimen Type Arterial 07/01/24 23:07 Sample Site Radial, left 07/01/24 23:07 ABG pH 7.50 (7.35-7.45) H 07/01/24 23:07 ABG pCO2 32.2 mmHg (35-45) L 07/01/24 23:07 ABG pO2 68.5 mmHg (80.0-100.0) L 07/01/24 23:07 ABG PO2/FiO2 Ratio 326 07/01/24 23:07 ABG HCO3 25.0 mmol/L (22-26) 07/01/24 23:07 ABG Base Excess 2.2 mmol/L (-2.0-2.0) H 07/01/24 23:07 Wilber Test Pos 07/01/24 23:07 Hematocrit 36.1 % (42-52) L 07/01/24 23:07 O2 Delivery Device None 07/01/24 23:07 FiO2 21.0 % 07/01/24 23:07 Hoop Punch [employer] 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 [place] 07/01/24 23:07 Sodium 138 mmol/L (136-145) 07/03/24 03:23 Potassium 4.2 mmol/L (3.5-5.1) 07/03/24 03:23 Chloride 100 mmol/L (98-107) 07/03/24 03:23 Carbon Dioxide 28 mmol/L (22-29) 07/03/24 03:23 Anion Gap 14.2 (5-19) 07/03/24 03:23 BUN 30 mg/dL (8-23) H 07/03/24 03:23 Creatinine 1.8 mg/dL (0.7-1.2) H 07/03/24 03:23 GFR Calculation 37.5 mL/min (90-130) L 07/03/24 03:23 Glucose 98 mg/dL (65-115) 07/03/24 03:23 Estimat Average Glucose 103 07/02/24 03:21 Hemoglobin A1c 5.2 % (4.0-6.0) 07/02/24 03:21 Calculated Osmolality 292 mOsm/kg (285-295) 07/03/24 03:23 Lactic Acid 1.5 mmol/L (0.5-2.2) 07/01/24 21:32 Calcium 9.5 mg/dL (8.5-10.5) 07/03/24 03:23 Magnesium 1.3 mg/dL (1.7-2.3) L 07/03/24 03:23 Iron 10 ug/dL (59-158) L 07/02/24 03:21 TIBC 211 mcg/dl 07/02/24 03:21 % Saturation 4.7 % (20-50) L 07/02/24 03:21 Unsat Iron Binding 201 ug/dL (112-347) 07/02/24 03:21 Total Bilirubin 0.6 mg/dL (0.15-1.2) 07/03/24 03:23 AST 34 U/L (0-40) 07/03/24 03:23 ALT 9 U/L (0-41) 07/03/24 03:23 Alkaline Phosphatase 56 U/L (40-130) 07/03/24 03:23 Troponin T Baseline 25 ng/L (0-15) H 07/01/24 21:32 Troponin T 120 Minute 23.89 ng/L (0-15) H 07/01/24 22:59 Delta Troponin T -1.11 ABS# (0-10) L 07/01/24 22:59 Troponin T Hi Sens 6Hr 30.15 ng/L (0-15) H 07/02/24 03:21 Troponin T Hi Sens 6Hr Delta 5.15 ng/L (0-12) 07/02/24 03:21 NT-Pro-B Natriuret Pep 6270 pg/mL (0-125) H 07/01/24 21:32 Total Protein 7.0 g/dL (6.6-8.7) 07/03/24 03:23 Albumin 3.8 g/dL (3.5-5.2) 07/03/24 03:23 Globulin 3.2 g/dL (1.3-4.6) 07/03/24 03:23 Triglycerides 132 mg/dL (0-150) 07/03/24 03:23 Cholesterol 169 mg/dL (0-200) 07/03/24 03:23 LDL Cholesterol, Calc 107 mg/dL (50-129) 07/03/24 03:23 Total VLDL Cholesterol 26 mg/dL (0-30) 07/03/24 03:23 HDL Cholesterol 36 mg/dL (60-100) L 07/03/24 03:23 Cholesterol/HDL Ratio 4.69 mg/dL (1.0-5.00) 07/03/24 03:23 Vitamin B12 292 pg/mL (232-1245) 07/02/24 03:21 Folate 9.8 ng/mL (4.5-32.2) 07/03/24 03:23 Procalcitonin 0.42 ng/mL (0-0.5) 07/02/24 03:21 TSH 0.34 uIU/mL (0.27-4.20) 07/02/24 03:21 Urine Color Yellow (Yellow) 07/02/24 11:51 Urine Appearance Clear (CLEAR) 07/02/24 11:51 Urine pH 6.0 (5-7) 07/02/24 11:51 Ur Specific White 1.014 (1.005-1.030) 07/02/24 11:51 Urine Protein 1+ (Negative) A 07/02/24 11:51 Urine Glucose (UA) Negative (Normal) 07/02/24 11:51 Urine Ketones Negative (Negative) 07/02/24 11:51 Urine Blood Negative (Negative) 07/02/24 11:51 Urine Nitrate Negative (Negative) 07/02/24 11:51 Urine Bilirubin Negative (Negative) 07/02/24 11:51 Urine Urobilinogen 1.0 mg/dL (Negative) 07/02/24 11:51 Ur Leukocyte Esterase Negative (Negative) 07/02/24 11:51 Urine RBC 0-2 /hpf (0-2) 07/02/24 11:51 Urine WBC 0-5 /hpf (0-5) 07/02/24 11:51 Ur Squamous Epith Cells 0-5 /hpf (0-5) 07/02/24 11:51 Amorphous Sediment Not Reportable 07/02/24 11:51 Urine Bacteria None seen /hpf (NONE) 07/02/24 11:51 Hyaline Casts 0-4 /lpf H 07/02/24 11:51 Ur Random Sodium 49 mmol/L 07/02/24 11:51 Ur Random Potassium 49 mmol/L 07/02/24 11:51 Ur Random Chloride 53 mmol/L 07/02/24 11:51 Nasal MRSA (PCR) Not detected (Negative) 07/02/24 11:51 Urine Opiates Screen Positive ng/mL (Negative) H 07/02/24 11:51 Ur Barbiturates Screen Negative ng/mL (Negative) 07/02/24 11:51 Ur Phencyclidine Scrn Negative ng/mL (Negative) 07/02/24 11:51 Ur Amphetamines Screen Negative ng/mL (Negative) 07/02/24 11:51 U Benzodiazepines Scrn Negative ng/mL (Negative) 07/02/24 11:51 Urine Cocaine Screen Negative ng/mL (Negative) 07/02/24 11:51 U Marijuana (THC) Screen Positive ng/mL (Negative) H 07/02/24 11:51 Coronavirus (PCR) Negative (Negative) 07/01/24 21:35 Influenza A (PCR) Negative (Negative) 07/01/24 21:35 Influenza Type B (PCR) Negative (Negative) 07/01/24 21:35 RSV (PCR) Negative (Negative) 07/01/24 21:35 Vitals Last Vital Signs Temp 98.2 F 07/03/24 11:49 Pulse 80 07/03/24 11:49 Resp 17 07/03/24 11:49 BP 160/80 07/03/24 11:49 Pulse Ox 96 07/03/24 11:49 O2 Del Method Room Air 07/03/24 11:49 O2 Flow Rate 3 07/03/24 00:00 Discharge Plan Discharge Patient Disposition: Home Condition: Stable Prescriptions: New magnesium L-lactate 84 mg tablet extended release 84 mg PO DAILY Qty: 90 0RF levofloxacin 750 mg tablet 750 mg PO DAILY 5 Days Qty: 5 0RF Continued gabapentin 300 mg capsule 300 mg PO BID hydrocodone-acetaminophen 10-325 mg tablet 1 tab PO Q6H PRN (Reason: Pain) omeprazole 20 mg capsule,delayed release(DR/EC) 20 mg PO DAILY tamsulosin 0.4 mg capsule 0.8 mg PO DAILY cyclobenzaprine 10 mg tablet 10 mg PO TID PRN (Reason: Muscle Spasm) All Day Allergy (cetirizine) 10 mg capsule 10 mg PO DAILY PRN (Reason: Allergy Symptoms) atenolol 100 mg tablet 100 mg PO DAILY Trelegy Ellipta 200-62.5-25 mcg blister with device 1 inh inhalation DAILY (DME) Hinged knee brace, RIGHT See Rx Instructions .Route .MEDSUPPLY Qty: 1 0RF Rx Instructions: As directed albuterol sulfate 1.25 mg/3 mL solution for nebulization 1.25 mg inhalation Q6H PRN (Reason: shortness of breath or wheezing) Qty: 15 0RF albuterol sulfate [ProAir HFA] 90 mcg/actuation HFA aerosol inhaler 2 inh inhalation Q6H PRN (Reason: shortness of breath or wheezing) Qty: 8.5 0RF Changed losartan 25 mg tablet 50 mg PO BID Qty: 90 0RF Discontinued diclofenac sodium 3 % gel 1 applic topical BID 90 Days Qty: 100 0RF Discharge Orders: Discharge Order (Routine); Ordered 07/03/24 Ordered By: David Lopez Referrals: Alcira Guerra MD [Primary Care Provider] - 4-7 days Discharge Diet: Cardiac Discharge Activity: Increase activity as tolerated and Limit activity as instructed Patient Instructions: Losartan (By mouth), Levofloxacin (By mouth) (Levaquin, Levaquin Leva-mona), Hypertension (GEN), Opioid Safety Activity Restrictions/Additional Instructions: Please follow-up with your primary provider for reassessment of recovery from pneumonia. Please have your primary provider obtain repeat imaging to confirm resolution of lung opacities. Please follow-up with your primary doctor regarding swallow study as per previous recommendation by lung specialist. As discussed, watch out for any new bothersome aches or pains, and if experiencing them stopped antibiotic and contact a doctor. Please continue to monitor blood pressure at home 3 times daily. Target blood pressure below 130/90. Please limit salt intake to less than 2 g a day. Continue losartan, atenolol. Please follow-up with your primary doctor for reassessment of blood pressure control. Please discuss with your primary doctor also regarding orthostatic hypotension (blood pressure decreasing while you are upright/standing) as discussed. Please rise slowly from laying to sitting and sitting to standing and sit down or lie down in case of experiencing lightheadedness or dizziness. Do not fight through the symptoms to avoid fainting, falling and injury. Please follow-up with your primary provider to continue to optimize cardiovas cular risk factors with incidentally noted coronary calcifications. Your magnesium level is low, please supplement magnesium, have your primary doctor follow-up magnesium level. Please have your primary provider also follow-up your kidney function with chronic kidney disease. Avoid any NSAIDs. Please be aware as discussed Voltaren gel may have systemic absorption. As discussed, seek medical attention in case of any worsening or new concerning symptoms. Discharge Attestations Time Spent in Discharge Care*: greater than 30 min Quality Metrics Clinical Quality Measures [ No reported AMI, CVA or VTE this stay] Coding Level of Care Code 65454 Total time (in minutes) for Discharge: 45 Diagnoses Failure of outpatient treatment Z78.9 Community acquired pneumonia J18.9
[2024-07-03] MEDS: magnesium sulfate premix 2 GM/50 ML PIGGYBACK IV (12:09)
[2024-07-03] MEDS: cefTRIAXone 1,000 mg SDV 1000 MG IVP (12:09)
== END 2024-07-03 13:51 | disposition home health service (06) | DRG 194 ==
LOC: ER 07-02 00:14 → MEDSURG 07-02 00:56
PROVIDERS: Emergency Medicine; Student in an Organized Health Care Education/Training Program; Admitting Provider Student in an Organized Health Care Education/Training Program; Emergency Provider Nurse Practitioner; PCP Family Medicine; Visit Provider Internal Medicine
DX: J18.9 Pneumonia, unspecified organism (principal); J44.0 Chronic obstructive pulmonary disease with (acute) lower respiratory infection; N40.0 Benign prostatic hyperplasia without lower urinary tract symptoms; I12.9 Hypertensive chronic kidney disease with stage 1 through stage 4 chronic kidney disease, or unspecified chronic kidney disease; N18.9 Chronic kidney disease, unspecified; K21.9 Gastro-esophageal reflux disease without esophagitis; M06.9 Rheumatoid arthritis, unspecified; I95.1 Orthostatic hypotension; F41.9 Anxiety disorder, unspecified; Z87.01 Personal history of pneumonia (recurrent); Z99.81 Dependence on supplemental oxygen; Z87.891 Personal history of nicotine dependence
CPT/HCPCS: 0241U; 36415; 36600; 70450; 71045; 71250; 80053; 80061; 80306; 81001; 82436; 82607; 82746; 82803; 83036; 83540; 83550; 83605; 83735; 83880; 84133; 84145; 84300; 84443; 84484; 85025; 85378; 86403; 87040; 87070; 87205; 87449; 93005; 93306; 93970; 94640; 96374; 99285; J0696; J1956; J2405; J3475; J7626

== ENCOUNTER → 2024-08-04 09:20 | Outpatient (BNVA) | payer MEDICARE, SELFPAY | PROVIDERS: PCP Family Medicine; Visit Provider Nurse Practitioner | DX: M17.11 Unilateral primary osteoarthritis, right knee (principal) | CPT/HCPCS: 20610; J7326 ==

== ENCOUNTER → 2024-11-03 10:36 | Outpatient (BNVA) | payer MEDICARE, SELFPAY | PROVIDERS: PCP Family Medicine; Visit Provider Nurse Practitioner | DX: M17.11 Unilateral primary osteoarthritis, right knee (principal) | CPT/HCPCS: 20610; J1100; J2795; J3301; J9999 ==

== ENCOUNTER 2024-12-21 06:17 | Outpatient (CLI) | payer MEDICARE, SELFPAY ==
--- NOTE | 2024-12-21 | ECG_ITS ---
[facility] Test Date: 2024-12-21 Pat Name: Russel Wylie Department: Room: Gender: Male Mica Paster: : 1955 Requested By: Alcira Damico Order Number: [id number] Ilene MD: CAITYLN RAYGOZA Interpretive Statements Lung unchanged pre/post procedure; Intraprocedure shortess of breath; Symptoms resoled by discharge NOTE: Please note that this is the electrocardiogram portion of the Lexiscan/Sestamibi stress test. The perfusion scan will be documented separately. DATA: Baseline heart rate was 110 beats per minute. Baseline blood pressure was 159/110 millimeters of mercury. Target heart rate was 149. Maximum heart rate achieved was 148. which was 99% of the predicted target heart rate. Maximum blood pressure was 159/114 millimeters of mercury. The reason for ending the test was completion of the protocol. The patient did not experience any symptoms. ELECTROCARDIOGRAM: BASELINE: Atrial fibrillation. Normal axis. Otherwise, no ST-T changes suggestive of ischemia noted. No arrhythmia noted. EXERCISE: After Lexiscan injection, no ST-T changes suggestive of ischemic noted. No arrhythmia noted. CONCLUSION: Please note due to baseline abnormality of the EKG specificity and sensitivity of the EKG portion of LexiScan MIBI stress test will be low 1. EKG not suggestive of ischemia 2. Lexiscan injection unremarkable. 3. Perfusion scan will be documented separately. Electronically Signed On 01-03-2025 21:43:43 CDT by CAITLYN RAYGOZA [email or web address]
--- NOTE | 2024-12-21 06:41 | USCV_ITS ---
Russel Wylie Age: 69 Gender: M : 1955 Exam Date: 12/21/2024 06:50 Ordering Phys: Alcira Guerra MD Technologist: Exam Location: [facility] – [place] Indication: afib BP: 130 / 80 HR: 90 Rhythm: Sinus Technical Quality: Adequate MEASUREMENTS (Male / Female) Normal Values 2D ECHO LV Diastolic Diameter PLAX 4.3 cm 4.2 - 5.9 / 3.9 - 5.3 cm IVS Diastolic Thickness 1.0 cm 0.6 - 1.0 / 0.6 - 0.9 cm IVS Systolic Thickness 1.6 cm LVPW Diastolic Thickness 1.1 cm 0.6 - 1.0 / 0.6 - 0.9 cm LVPW Systolic Thickness 1.7 cm LVOT Diameter 2.5 cm LV Ejection Fraction 2D Teich 62.6 % LV Ejection Fraction MOD 4C 48.7 % LV Ejection Fraction MOD 2C 42.2 % LV Ejection Fraction 2C AL 43.4 % LA Diameter 3.6 cm RA Systolic Volume 4C AL 54.3 ml RA Systolic Volume 4C MOD 52.6 ml LA Sys Volume AL 86.4 cm cubed LA Sys Volume Index AL 40.7 cm cubed/m squared Aorta at Sinotubular Diameter 3.0 cm IVC Diameter 2.6 cm M-MODE LA Ao Ratio MM 1.1 AV Cusp Separation MM 2.1 cm DOPPLER AV Peak Velocity 130.0 cm/s LVOT Peak Velocity 61.0 cm/s AV Area Cont Eq vti 3.0 cm squared AV Area Cont Eq pk 2.3 cm squared MV Peak Velocity 104.0 cm/s MV Area PHT 5.2 cm squared Mitral E to A Ratio 2.6 TV Peak Velocity 183.5 cm/s TR Peak Velocity 212.0 cm/s TR Peak Gradient 18.0 mmHg TV Peak E Velocity 109.0 cm/s PV Peak Velocity 88.0 cm/s FINDINGS Left Ventricle Diffuse hypokinesis of the left ventricule with an ejection fraction of 42%. Normal LV size Right Ventricle The right ventricle is normal in size and function. Right Atrium Mildly increased right atrial size. Left Atrium Mildly increased left atrial size. Mitral Valve Mild-moderate mitral valve regurgitation. Mild mitral annular calcification. Aortic Valve No gross abnormalities noted. Tricuspid Valve Trace tricuspid valve regurgitation. Pulmonic Valve Mild pulmonary valve regurgitation. Pericardium No pericardial effusion. Aorta Normal ascending aorta dimension. IVC Normal inferior vena cava. CONCLUSIONS Diffuse hypokinesis of the left ventricule with an ejection fraction of 42%. Normal LV size. Mild biatrial enlargement Mild-moderate mitral valve regurgitation. Mild mitral annular calcification. Trace tricuspid valve regurgitation. Estimated pulmonary artery peak systolic pressure possibly within normal limits There is no pericardial effusion. There are no intracardiac masses. Compared to the previous study from 07/02/2024, there is significant drop in the LV ejection fraction from 55-60% to 42% Dr Hermelinda Malik MD [facility] (Electronically Signed) Final Date: 22 Dec 2024 19:27 S
--- NOTE | 2024-12-21 08:02 | NMCV_ITS ---
NM timothy perf SPECT r/s* [id number] Russel Wylie Age: 69 Gender: M : 1955 Exam Date: 12/21/2024 08:15 Ordering Phys: Alcira Guerra MD Technologist: MONICO Wilkinson Exam Location: [facility] Indications: cp STRESS TEST Please see separate stress test report in [facility] for full findings IMAGE PROTOCOL Rest/Stress 1 Lexiscan Day Radiopharmaceutical Dose (mCi) Administration Site Administered by Rest: Tc-99m 10.6 IV Lurdes Kaiser, IRON HANDLER Sestamibi Stress:Tc-99m 32.5 IV Lurdes Clinegle, IRON HANDLER Sestamibi Rest: 21-Dec-2024 60 Discovery 630 Stress: 21-Dec-2024 30 Discovery 630 0.4mg Lexiscan. Supine position only as patient was unable to lay prone. SPECT RESULTS Technical Quality: Good Raw Data Analysis: Normal Image Corrections: No attenuation or motion correction applied Summed Stress Score: 0 Summed Rest Score: 5 Summed Difference Score: 0 PERFUSION FINDINGS There is a perfusion defect seen on resting images in the septal, apical lateral and apical inferior templeton that resolve on stress imnaging. This is consistent with attenuation artifact. No evidence of ischemia. FUNCTIONAL RESULTS (calculated via Gated SPECT) Stress Image LV EF (%): 37 Stress EDV (mL):109 TID: 1.06 Stress ESV (mL):69 FUNCTIONAL FINDINGS: LV systolic function is moderately reduced with EF of 37% IMPRESSIONS 1. Attenuation artifact seen in the septal, apical inferior and apical lateral wall. No evidence of ischemia 2. LV systolic function is moderately reduced with EF of 37% Mike Henning MD (Electronically Signed) Final Date: 22 Dec 2024 12:17 S
[2024-12-21] MEDS: regadenoson 0.4 Mg/5 ml Syringe IVP (08:36)
[2024-12-21 08:49] VITALS: BP 137/107; PULSE 124
== END 2024-12-21 06:18 | disposition home or self-care (01) ==
LOC: RAD 07:05 → CARD 07:57 → CDL 07:59
PROVIDERS: PCP Family Medicine; Visit Provider Family Medicine
DX: I48.91 Unspecified atrial fibrillation (principal); R93.1 Abnormal findings on diagnostic imaging of heart and coronary circulation; I51.7 Cardiomegaly; I34.0 Nonrheumatic mitral (valve) insufficiency; I34.81 Nonrheumatic mitral (valve) annulus calcification; I37.1 Nonrheumatic pulmonary valve insufficiency
CPT/HCPCS: 36415; 78452; 93017; 93306; 96374; A9500; J2785

== ENCOUNTER → 2025-01-17 12:19 | Outpatient (BNVA) | payer MEDICARE, SELFPAY | PROVIDERS: PCP Family Medicine; Referring Provider Nurse Practitioner Family; Visit Provider Internal Medicine Cardiovascular Disease | DX: I48.91 Unspecified atrial fibrillation (principal); N18.9 Chronic kidney disease, unspecified; R53.1 Weakness; Z79.01 Long term (current) use of anticoagulants | CPT/HCPCS: 36415; 80053; 84443; 85025; 85610 ==

== ENCOUNTER → 2025-02-09 09:55 | Outpatient (BNVA) | payer MEDICARE, SELFPAY | PROVIDERS: PCP Family Medicine; Visit Provider Nurse Practitioner | DX: M17.11 Unilateral primary osteoarthritis, right knee (principal) | CPT/HCPCS: 20610; J1100; J2795; J3301; J9999 ==

== ENCOUNTER → 2025-02-12 10:48 | Outpatient (BNVA) | payer MEDICARE, SELFPAY | PROVIDERS: Visit Provider Nurse Practitioner Family | DX: I48.91 Unspecified atrial fibrillation (principal); Z79.01 Long term (current) use of anticoagulants; I11.0 Hypertensive heart disease with heart failure; I50.9 Heart failure, unspecified; I42.8 Other cardiomyopathies | CPT/HCPCS: 36415; 80048; 99214 ==

== ENCOUNTER → 2025-05-02 12:01 | Outpatient (BNVA) | payer MEDICARE, SELFPAY | PROVIDERS: PCP Nurse Practitioner Family; Visit Provider Internal Medicine Cardiovascular Disease | DX: I48.91 Unspecified atrial fibrillation (principal); Z79.01 Long term (current) use of anticoagulants; I42.8 Other cardiomyopathies; I11.0 Hypertensive heart disease with heart failure; I50.9 Heart failure, unspecified; M06.9 Rheumatoid arthritis, unspecified; Z87.891 Personal history of nicotine dependence; R07.9 Chest pain, unspecified | CPT/HCPCS: 93005; 99214 ==

== ENCOUNTER 2025-05-21 16:14 | Outpatient (CLI) | payer MEDICARE, SELFPAY | END 2025-05-21 16:15 | disposition home or self-care (01) | PROVIDERS: PCP Nurse Practitioner Family; Visit Provider Nurse Practitioner | DX: Z46.89 Encounter for fitting and adjustment of other specified devices (principal); M17.11 Unilateral primary osteoarthritis, right knee | CPT/HCPCS: 20610; J1100; J2795; J3301; J9999; L1812 ==

== ENCOUNTER 2025-05-28 00:35 | Emergency (ER) | payer MEDICARE, SELFPAY ==
[2025-05-28] VITALS (8 sets, daily range): BP systolic 130–140; BP diastolic 77–89; PULSE 94–107; RESP 17–18; TEMP 36.6–38.3; O2SAT 93–94; BMI 26.7
--- NOTE | 2025-05-28 00:49 | ED_ITS ---
Documented by User: MARI Carpenter 05/30/25 17:07 HPI - Abdominal Pain 2 General: Chief Complaint: Abdominal Pain Stated Complaint: abdomen pain/ diarrhea Time Seen by Provider: 05/28/25 02:43 History of Present Illness: Patient is a 69-year-old male with history of HTN, COPD, rheumatoid arthritis, atrial fibrillation on metoprolol, Eliquis, that presented to the ED due to nausea, vomiting, diarrhea x 1 day. He states he has flank pain. On reevaluation, patient states he has been coughing up blood. He is chronically on Eliquis as well. He does admit to shortness of breath, history of COPD, however believes this is slightly worse. Oxygen saturation is 93% on room air. Associated Symptoms: Reports nausea and vomiting; Denies chills and fever(s) Related Data Home Medications ?Medication ?Instructions ?Recorded ?Confirmed gabapentin 300 mg capsule 300 mg PO BID 10/28/2005/21 hydrocodone 10 mg-acetaminophen 1 tab PO Q6H PRN Pain 10/28/20 05/21/25 325 mg tablet omeprazole 20 mg capsule,delayed 20 mg PO DAILY 05/21/25 release tamsulosin 0.4 mg capsule 0.8 mg PO DAILY 10/28/20 cetirizine 10 mg capsule (All Day 10 mg PO DAILY PRN A llergy Symptoms 09/22/21 05/21/25 Allergy (cetirizine)) cyclobenzaprine 10 mg tablet 10 mg PO TID PRN Muscle S pasm 09/22/21 05/21/25 fluticasone fur. 200 mcg-umeclid 1 inh inhalation ANA Y 01/15/22 05/21/25 62.5 mcg-vilant 25 mcg inhalat.powder (Trelegy Ellipta) losartan 50 mg tablet 50 mg PO DAILY 05/24/25 Previous Rx's ?Medication ?Instructions ?Recorded albuterol sulfate 1.25 mg/3 mL 1.25 mg (3 mL) inhalati on Q6H PRN 06/16/21 solution for nebulization shortness of breath or wheez ing #15 mL albuterol sulfate 90 mcg/actuation 2 inh inhalation Q6 H PRN shortness 05/30/22 aerosol inhaler (ProAir HFA) of breath or wheezing #8. 5 grams Hinged knee brace, RIGHT #1 ea 03/01/24 apixaban 5 mg tablet (Eliquis) 5 mg PO BID #180 tabs 0 02/01/25 atenolol 50 mg tablet 75 mg (1.5 x 50 mg) PO DAILY #180 02/19/25 tabs Hinged knee brace #1 ea 05/21/25 levofloxacin 750 mg tablet 750 mg PO DAILY 7 days #7 t abs 05/28/25 Allergies Allergy/AdvReac Type Severity Reaction Status Date / Time lisinopril Allergy Intermediate Unknown Verified 05/21/25 15:01 aspirin Allergy Unknown Verified 05/21/25 15:01 cefuroxime (From Ceftin) Allergy Unknown Verified 05/21/25 15:01 Penicillins Allergy Unknown Verified 05/21/25 15:01 sacubitril (From Entresto) AdvReac Intermediate Unknown Verified 05/21/25 15:01 valsartan (From Entresto) AdvReac Intermediate Unknown Verified 05/21/25 15:01 Review of Systems 2 Const: Denies: fever(s) or chills ENMT: Denies: throat pain Card: Denies: chest pain or dyspnea on exertion Resp: Denies: dyspnea, productive cough or wheezing GI: Reports: abdominal pain, nausea and vomiting Musc: Reports: limited range of motion (due to n/v) Skin/Breast: Denies: changes in skin color or dry skin Neuro: Denies: numbness in extremities or weakness in extremities Psych: Denies: anxiety Dejuan/Lymph: Denies: easy bruising or easy bleeding PFSH ED 2 PFSH: Medical History (Updated 05/28/25 @ 02:45 by Tylor Carroll DO) Bilateral primary osteoarthritis of knee COPD (chronic obstructive pulmonary disease) Chronic kidney disease Anemia Chronic renal insufficiency GERD (gastroesophageal reflux disease) Elevated brain natriuretic peptide (BNP) level Hepatitis C Rheumatoid arthritis Urolithiasis BPH loc w urin obs/LUTS Diverticulosis Surgical History H/O colonoscopy Family History Mother , at age 78 Cancer LUNG Father , at age 72 Cancer lung Social History Smoking and tobacco/nicotine status: former use of tobacco/nicotine Quit status (tobacco/nicotine): has quit using Year quit tobacco: June, Former quit date comment: 1 ppd x40 years Alcohol intake: never Marital status: Current occupational status: retired Physical Exam 2 Const: COMMON NORMALS: no acute distress, average body habitus, patient oriented x3, no limitations, alert and well nourished GENERAL APPEARANCE: c ooperative; not anxious and not combative ORIENTATION/CONSCIOUSNESS: Yes awake, Yes oriented to person, Yes oriented to place and Yes oriented to time HENMT: COMMON NORMALS: normocephalic and atraumatic HEAD & SCALP: n ormocephalic and atraumatic Lymph: LYMPHATIC: no lymphadenopathy noted Resp: COMMON NORMALS: normal respiratory effort AUSCULTATION: bronchial breath sounds GI: COMMON NORMALS: Soft to palpation INSPECTION: Yes visible herniation (umbilica) AUSCULTATION: Yes Hyperactive bowel sounds present PALPATION: Y es Soft to palpation, No Firmness to palpation present (GI) and No Tenderness to palpation present (GI) PERCUSSION: dullness to percussion : COMMON NORMALS: Yes no CVA tenderness BLADDER/KIDNEY EXAM: Yes no CVA tenderness Back/Pelvis: COMMON NORMALS: no CVA tenderness Extremity: COMMON NORMALS: normal to inspection, full ROM and capillary refill normal Neuro: COMMON NORMALS: patient oriented x3 SENSORIUM/ORIENTATION: Yes alert, Yes oriented to person, Yes oriented to place and Yes oriented to time Psych: ATTITUDE: Yes engaged Skin: COMMON NORMALS: no rashes or lesions noted, turgor normal and no jaundice GENERAL SKIN EXAM: no rashes or lesions noted and turgor normal Course 2 Vital Signs: Vital signs: Vital Signs Temperature 97.9 F 05/28/25 03:12 Pulse Rate 107 H 05/28/25 03:12 Respiratory Rate 17 05/28/25 03:12 Blood Pressure 130/89 05/28/25 03:12 Pulse Oximetry 94 05/28/25 03:12 Oxygen Delivery Me thod Room Air 05/28/25 03:11 MDM - Abdominal Pain Medical Decision Making Patient is a 69-year-old gentleman that is difficult to assess with poor historian. Approximately 24 hours of nausea, vomiting, and diarrhea. He has a history of rheumatoid arthritis, denied fevers, however his temperature is 101 ?F. He is really not tachycardic, or has a abdominal exam of concern. He is benign findings, with minimal leukocytosis at 11.7. Will initially treat with IV acetaminophen, and check for COVID. Patient also now admits to coughing up blood. He is chronically on Eliquis. #1 differential is bronchitis. He does appear to have a left lower lobe infiltrate. Will check prolactin, check blood cultures, and lactic acid. Medical Records I reviewed the patient's medical records. Lab Data 05/28/25 00:55 05/28/25 00:55 Labs/Radiology: Radiology Impressions Abdomen X-Ray 05/28/25 00:49 IMPRESSION: 1. Left lower lobe pneumonia suspected. 2. Layg-sf-[id number] constipation without bowel dilation to indicate obstruction. Chest X-Ray 05/28/25 01:49 IMPRESSION: Left lower lung pneumonia. Laboratory Results WBC 11.65 10^3/uL (3.29-11.43) H 05/28/25 00:55 RBC 3.95 10^6/uL (3.85-5.65) 05/28/25 00:55 Hgb 12.10 g/dL (11.27-16.99) 05/28/25 00:55 Hct 36.4 % (37-53) L 05/28/25 00:55 MCV 92.2 fl (82-101) 05/28/25 00:55 MCH 30.6 pg (27-33) 05/28/25 00:55 MCHC 33.2 g/dL (30-55) 05/28/25 00:55 RDW 13.2 % (12.1-15.1) 05/28/25 00:55 Plt Count 213 10^3/cmm (157-399) 05/28/25 00:55 MPV 9.7 fL (7.4-10.4) 05/28/25 00:55 Neut % (Auto) 83.3 % 05/28/25 00:55 Lymph % (Auto) 9.1 % 05/28/25 00:55 [place] % (Auto) 6.4 % 05/28/25 00:55 Eos % (Auto) 0.4 % 05/28/25 00:55 Baso % (Auto) 0.4 % 05/28/25 00:55 Neut # (Auto) 9.69 10^3/uL (1.8-7.7) H 05/28/25 00:55 Lymph # (Auto) 1.1 10^3/uL (0.8-4.8) 05/28/25 00:55 [place] # (Auto) 0.8 10^3/uL (0.2-0.9) 05/28/25 00:55 Eos # (Auto) 0.1 10^3/uL (0.0-0.8) 05/28/25 00:55 Baso # (Auto) 0.1 10^3/uL (0.0-0.1) 05/28/25 00:55 Nucleated RBC % (auto) 0 % 05/28/25 00:55 Nucleated RBCs # 0.0 /100WBC 05/28/25 00:55 Sodium 140 mmol/L (136-145) 05/28/25 00:55 Potassium 3.8 mmol/L (3.5-5.1) 05/28/25 00:55 Chloride 103 mmol/L (98-107) 05/28/25 00:55 Carbon Dioxide 25 mmol/L (22-29) 05/28/25 00:55 Anion Gap 15.8 (5-19) 05/28/25 00:55 BUN 27 mg/dL (8-23) H 05/28/25 00:55 Creatinine 1.8 mg/dL (0.7-1.2) H 05/28/25 00:55 GFR Calculation Not Reportable 05/28/25 00:55 Glucose 124 mg/dL (65-115) H 05/28/25 00:55 Calculated Osmolality 297 mOsm/kg (285-295) H 05/28/25 00:55 Lactic Acid 1.8 mmol/L (0.5-2.2) 05/28/25 00:55 Calcium 9.4 mg/dL (8.5-10.5) 05/28/25 00:55 Total Bilirubin 0.7 mg/dL (0.15-1.2) 05/28/25 00:55 AST 13 U/L (0-40) 05/28/25 00:55 ALT 11 U/L (0-41) 05/28/25 00:55 Alkaline Phosphatase 66 U/L (40-130) 05/28/25 00:55 Total Protein 6.3 g/dL (6.6-8.7) L 05/28/25 00:55 Albumin 4.0 g/dL (3.5-5.2) 05/28/25 00:55 Globulin 2.3 g/dL (1.3-4.6) 05/28/25 00:55 Lipase 31 U/L (13-60) 05/28/25 00:55 Procalcitonin 0.16 ng/mL (0-0.5) 05/28/25 00:55 Urine Color Yellow (Yellow) 05/28/25 01:10 Urine Appearance Clear (CLEAR) 05/28/25 01:10 Urine pH 6.0 (5-7) 05/28/25 01:10 Ur Specific [place] 1.015 (1.005-1.030) 05/28/25 01:10 Urine Protein 1+ (Negative) A 05/28/25 01:10 Urine Glucose (UA) Negative (Normal) 05/28/25 01:10 Urine Ketones Negative (Negative) 05/28/25 01:10 Urine Blood Negative (Negative) 05/28/25 01:10 Urine Nitrate Negative (Negative) 05/28/25 01:10 Urine Bilirubin Negative (Negative) 05/28/25 01:10 Urine Urobilinogen 1.0 mg/dL (Negative) 05/28/25 01:10 Ur Leukocyte Esterase Negative (Negative) 05/28/25 01:10 Urine RBC 0-2 /hpf (0-2) 05/28/25 01:10 Urine WBC 0-5 /hpf (0-5) 05/28/25 01:10 Ur Squamous Epith Cells 0-5 /hpf (0-5) 05/28/25 01:10 Amorphous Sediment Not Reportable 05/28/25 01:10 Urine Bacteria None seen /hpf (NONE) 05/28/25 01:10 Hyaline Casts 0.81 /lpf 05/28/25 01:10 Influenza A (PCR) Negative (Negative) 05/28/25 01:20 Influenza Type B (PCR) Negative (Negative) 05/28/25 01:20 RSV (PCR) Negative (Negative) 05/28/25 01:20 SARS-CoV-2 (PCR) Negative (Negative) 05/28/25 01:20 All radiology interpretation(s) finalized by discharge Discharge Plan Discharge Patient Disposition: Home Clinical Impression: Recurrent pneumonia Condition: Stable Prescriptions: New levofloxacin 750 mg tablet 750 mg PO DAILY 7 Days Qty: 7 0RF No Action gabapentin 300 mg capsule 300 mg PO BID hydrocodone-acetaminophen 10-325 mg tablet 1 tab PO Q6H PRN (Reason: Pain) omeprazole 20 mg capsule,delayed release(DR/EC) 20 mg PO DAILY tamsulosin 0.4 mg capsule 0.8 mg PO DAILY cyclobenzaprine 10 mg tablet 10 mg PO TID PRN (Reason: Muscle Spasm) All Day Allergy (cetirizine) 10 mg capsule 10 mg PO DAILY PRN (Reason: Allergy Symptoms) Trelegy Ellipta 200-62.5-25 mcg blister with device 1 inh inhalation DAILY (DME) Hinged knee brace See Rx Instructions .Route .MEDSUPPLY Qty: 1 0RF Rx Instructions: As directed (DME) Hinged knee brace, RIGHT See Rx Instructions .Route .MEDSUPPLY Qty: 1 0RF Rx Instructions: As directed Eliquis 5 mg tablet 5 mg PO BID Qty: 180 3RF atenolol 50 mg tablet 75 mg PO DAILY Qty: 180 0RF losartan 50 mg tablet 50 mg PO DAILY albuterol sulfate 1.25 mg/3 mL solution for nebulization 1.25 mg inhalation Q6H PRN (Reason: shortness of breath or wheezing) Qty: 15 0RF albuterol sulfate [ProAir HFA] 90 mcg/actuation HFA aerosol inhaler 2 inh inhalation Q6H PRN (Reason: shortness of breath or wheezing) Qty: 8.5 0RF Discharge Orders: Discharge ED (Routine); Ordered 05/28/25 Ordered By: Tylor Carroll Referrals: Estrella,Miroslava, MEDICAL UNIT SECRETARY [Primary Care Provider, Nurse Practitioner] - 1-3 days Patient Instructions: Pneumonia (ED), Opioid Safety, Pain Management, Patient Portal & Mandy Instructions Activity Restrictions/Additional Instructions: Antibiotics as directed. Use your albuterol every 4 hours while awake scheduled for the first 24 hours, then as needed. Watch closely for fever and treat with Tylenol. Return for worsening shortness of breath despite treatment, fever despite 2-3 more doses of antibiotics, worsening mental status or any other concerning symptoms. Call your doctor later this morning for follow-up appointment this week. 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[employer] Fwd Documented by User: Tylor Carroll, DO 05/28/25 02:54 HPI - Abdominal Pain 2 General: Chief Complaint: Abdominal Pain Stated Complaint: abdomen pain/ diarrhea Time Seen by Provider: 05/28/25 02:43 Related Data Home Medications ?Medication ?Instructions ?Recorded ?Confirmed gabapentin 300 mg capsule 300 mg PO BID 10/28/2005/21 hydrocodone 10 mg-acetaminophen 1 tab PO Q6H PRN Pain 10/28/20 05/21/25 325 mg tablet omeprazole 20 mg capsule,delayed 20 mg PO DAILY 05/21/25 release tamsulosin 0.4 mg capsule 0.8 mg PO DAILY 10/28/20 cetirizine 10 mg capsule (All Day 10 mg PO DAILY PRN A llergy Symptoms 09/22/21 05/21/25 Allergy (cetirizine)) cyclobenzaprine 10 mg tablet 10 mg PO TID PRN Muscle S pasm 09/22/21 05/21/25 fluticasone fur. 200 mcg-umeclid 1 inh inhalation ANA Y 01/15/22 05/21/25 62.5 mcg-vilant 25 mcg inhalat.powder (Trelegy Ellipta) losartan 50 mg tablet 50 mg PO DAILY 05/24/25 Previous Rx's ?Medication ?Instructions ?Recorded albuterol sulfate 1.25 mg/3 mL 1.25 mg (3 mL) inhalati on Q6H PRN 06/16/21 solution for nebulization shortness of breath or wheez ing #15 mL albuterol sulfate 90 mcg/actuation 2 inh inhalation Q6 H PRN shortness 05/30/22 aerosol inhaler (ProAir HFA) of breath or wheezing #8. 5 grams Hinged knee brace, RIGHT #1 ea 03/01/24 apixaban 5 mg tablet (Eliquis) 5 mg PO BID #180 tabs 0 02/01/25 atenolol 50 mg tablet 75 mg (1.5 x 50 mg) PO DAILY #180 02/19/25 tabs Hinged knee brace #1 ea 05/21/25 levofloxacin 750 mg tablet 750 mg PO DAILY 7 days #7 t abs 05/28/25 Allergies Allergy/AdvReac Type Severity Reaction Status Date / Time lisinopril Allergy Intermediate Unknown Verified 05/21/25 15:01 aspirin Allergy Unknown Verified 05/21/25 15:01 cefuroxime (From Ceftin) Allergy Unknown Verified 05/21/25 15:01 Penicillins Allergy Unknown Verified 05/21/25 15:01 sacubitril (From Entresto) AdvReac Intermediate Unknown Verified 05/21/25 15:01 valsartan (From Entresto) AdvReac Intermediate Unknown Verified 05/21/25 15:01 PFSH ED 2 PFSH: Medical History (Updated 05/28/25 @ 02:45 by Tylor Carroll DO) Bilateral primary osteoarthritis of knee COPD (chronic obstructive pulmonary disease) Chronic kidney disease Anemia Chronic renal insufficiency GERD (gastroesophageal reflux disease) Elevated brain natriuretic peptide (BNP) level Hepatitis C Rheumatoid arthritis Urolithiasis BPH loc w urin obs/LUTS Diverticulosis Surgical History H/O colonoscopy Family History Mother , at age 78 Cancer LUNG Father , at age 72 Cancer lung Social History Smoking and tobacco/nicotine status: former use of tobacco/nicotine Quit status (tobacco/nicotine): has quit using Year quit tobacco: June, Former quit date comment: 1 ppd x40 years Alcohol intake: never Marital status: Current occupational status: retired Course 2 Vital Signs: Vital signs: Vital Signs Temperature 97.9 F 05/28/25 03:12 Pulse Rate 107 H 05/28/25 03:12 Respiratory Rate 17 05/28/25 03:12 Blood Pressure 130/89 05/28/25 03:12 Pulse Oximetry 94 05/28/25 03:12 Oxygen Delivery Me thod Room Air 05/28/25 03:11 MDM - Abdominal Pain Medical Decision Making Patient is a 69-year-old gentleman that is difficult to assess with poor historian. Approximately 24 hours of nausea, vomiting, and diarrhea. He has a history of rheumatoid arthritis, denied fevers, however his temperature is 101 ?F. He is really not tachycardic, or has a abdominal exam of concern. He is benign findings, with minimal leukocytosis at 11.7. Will initially treat with IV acetaminophen, and check for COVID. Patient also now admits to coughing up blood. He is chronically on Eliquis. #1 differential is bronchitis. He does appear to have a left lower lobe infiltrate. Will check procalcitonin, check blood cultures, and lactic acid. Patient originally evaluated by Ms. Sue Ellison PA-C. I agree with her history, evaluation, and treatment. Patient is found to have a left lower lobe pneumonia on chest x-ray/KUB. He has constipation as well. His fever is broken. He is no longer significantly confused. Received fluid bolus. His lactate is normal. He is not hypoxic. He wishes to go home. He will be treated with Levaquin. He got a dose IV here. Swabs for flu COVID and RSV are negative. Lab Data 05/28/25 00:55 05/28/25 00:55 Labs/Radiology: Radiology Impressions Abdomen X-Ray 05/28/25 00:49 IMPRESSION: 1. Left lower lobe pneumonia suspected. 2. Jjrn-hk-oqcqzubx constipation without bowel dilation to indicate obstruction. Chest X-Ray 05/28/25 01:49 IMPRESSION: Left lower lung pneumonia. Laboratory Results WBC 11.65 10^3/uL (3.29-11.43) H 05/28/25 00:55 RBC 3.95 10^6/uL (3.85-5.65) 05/28/25 00:55 Hgb 12.10 g/dL (11.27-16.99) 05/28/25 00:55 Hct 36.4 % (37-53) L 05/28/25 00:55 MCV 92.2 fl (82-101) 05/28/25 00:55 MCH 30.6 pg (27-33) 05/28/25 00:55 MCHC 33.2 g/dL (30-55) 05/28/25 00:55 RDW 13.2 % (12.1-15.1) 05/28/25 00:55 Plt Count 213 10^3/cmm (157-399) 05/28/25 00:55 MPV 9.7 fL (7.4-10.4) 05/28/25 00:55 Neut % (Auto) 83.3 % 05/28/25 00:55 Lymph % (Auto) 9.1 % 05/28/25 00:55 [place] % (Auto) 6.4 % 05/28/25 00:55 Eos % (Auto) 0.4 % 05/28/25 00:55 Baso % (Auto) 0.4 % 05/28/25 00:55 Neut # (Auto) 9.69 10^3/uL (1.8-7.7) H 05/28/25 00:55 Lymph # (Auto) 1.1 10^3/uL (0.8-4.8) 05/28/25 00:55 [place] # (Auto) 0.8 10^3/uL (0.2-0.9) 05/28/25 00:55 Eos # (Auto) 0.1 10^3/uL (0.0-0.8) 05/28/25 00:55 Baso # (Auto) 0.1 10^3/uL (0.0-0.1) 05/28/25 00:55 Nucleated RBC % (auto) 0 % 05/28/25 00:55 Nucleated RBCs # 0.0 /100WBC 05/28/25 00:55 Sodium 140 mmol/L (136-145) 05/28/25 00:55 Potassium 3.8 mmol/L (3.5-5.1) 05/28/25 00:55 Chloride 103 mmol/L (98-107) 05/28/25 00:55 Carbon Dioxide 25 mmol/L (22-29) 05/28/25 00:55 Anion Gap 15.8 (5-19) 05/28/25 00:55 BUN 27 mg/dL (8-23) H 05/28/25 00:55 Creatinine 1.8 mg/dL (0.7-1.2) H 05/28/25 00:55 GFR Calculation Not Reportable 05/28/25 00:55 Glucose 124 mg/dL (65-115) H 05/28/25 00:55 Calculated Osmolality 297 mOsm/kg (285-295) H 05/28/25 00:55 Lactic Acid 1.8 mmol/L (0.5-2.2) 05/28/25 00:55 Calcium 9.4 mg/dL (8.5-10.5) 05/28/25 00:55 Total Bilirubin 0.7 mg/dL (0.15-1.2) 05/28/25 00:55 AST 13 U/L (0-40) 05/28/25 00:55 ALT 11 U/L (0-41) 05/28/25 00:55 Alkaline Phosphatase 66 U/L (40-130) 05/28/25 00:55 Total Protein 6.3 g/dL (6.6-8.7) L 05/28/25 00:55 Albumin 4.0 g/dL (3.5-5.2) 05/28/25 00:55 Globulin 2.3 g/dL (1.3-4.6) 05/28/25 00:55 Lipase 31 U/L (13-60) 05/28/25 00:55 Procalcitonin 0.16 ng/mL (0-0.5) 05/28/25 00:55 Urine Color Yellow (Yellow) 05/28/25 01:10 Urine Appearance Clear (CLEAR) 05/28/25 01:10 Urine pH 6.0 (5-7) 05/28/25 01:10 Ur Specific [place] 1.015 (1.005-1.030) 05/28/25 01:10 Urine Protein 1+ (Negative) A 05/28/25 01:10 Urine Glucose (UA) Negative (Normal) 05/28/25 01:10 Urine Ketones Negative (Negative) 05/28/25 01:10 Urine Blood Negative (Negative) 05/28/25 01:10 Urine Nitrate Negative (Negative) 05/28/25 01:10 Urine Bilirubin Negative (Negative) 05/28/25 01:10 Urine Urobilinogen 1.0 mg/dL (Negative) 05/28/25 01:10 Ur Leukocyte Esterase Negative (Negative) 05/28/25 01:10 Urine RBC 0-2 /hpf (0-2) 05/28/25 01:10 Urine WBC 0-5 /hpf (0-5) 05/28/25 01:10 Ur Squamous Epith Cells 0-5 /hpf (0-5) 05/28/25 01:10 Amorphous Sediment Not Reportable 05/28/25 01:10 Urine Bacteria None seen /hpf (NONE) 05/28/25 01:10 Hyaline Casts 0.81 /lpf 05/28/25 01:10 Influenza A (PCR) Negative (Negative) 05/28/25 01:20 Influenza Type B (PCR) Negative (Negative) 05/28/25 01:20 RSV (PCR) Negative (Negative) 05/28/25 01:20 SARS-CoV-2 (PCR) Negative (Negative) 05/28/25 01:20 Discharge Plan Discharge Patient Disposition: Home Clinical Impression: Recurrent pneumonia Condition: Stable Prescriptions: New levofloxacin 750 mg tablet 750 mg PO DAILY 7 Days Qty: 7 0RF No Action gabapentin 300 mg capsule 300 mg PO BID hydrocodone-acetaminophen 10-325 mg tablet 1 tab PO Q6H PRN (Reason: Pain) omeprazole 20 mg capsule,delayed release(DR/EC) 20 mg PO DAILY tamsulosin 0.4 mg capsule 0.8 mg PO DAILY cyclobenzaprine 10 mg tablet 10 mg PO TID PRN (Reason: Muscle Spasm) All Day Allergy (cetirizine) 10 mg capsule 10 mg PO DAILY PRN (Reason: Allergy Symptoms) Trelegy Ellipta 200-62.5-25 mcg blister with device 1 inh inhalation DAILY (DME) Hinged knee brace See Rx Instructions .Route .MEDSUPPLY Qty: 1 0RF Rx Instructions: As directed (DME) Hinged knee brace, RIGHT See Rx Instructions .Route .MEDSUPPLY Qty: 1 0RF Rx Instructions: As directed Eliquis 5 mg tablet 5 mg PO BID Qty: 180 3RF atenolol 50 mg tablet 75 mg PO DAILY Qty: 180 0RF losartan 50 mg tablet 50 mg PO DAILY albuterol sulfate 1.25 mg/3 mL solution for nebulization 1.25 mg inhalation Q6H PRN (Reason: shortness of breath or wheezing) Qty: 15 0RF albuterol sulfate [ProAir HFA] 90 mcg/actuation HFA aerosol inhaler 2 inh inhalation Q6H PRN (Reason: shortness of breath or wheezing) Qty: 8.5 0RF Discharge Orders: Discharge ED (Routine); Ordered 05/28/25 Ordered By: Tylor Carroll Referrals: Estrella,Miroslava, MEDICAL UNIT SECRETARY [Primary Care Provider, Nurse Practitioner] - 1-3 days Patient Instructions: Pneumonia (ED), Opioid Safety, Pain Management, Patient Portal & Mandy Instructions Activity Restrictions/Additional Instructions: Antibiotics as directed. Use your albuterol every 4 hours while awake scheduled for the first 24 hours, then as needed. Watch closely for fever and treat with Tylenol. Return for worsening shortness of breath despite treatment, fever despite 2-3 more doses of antibiotics, worsening mental status or any other concerning symptoms. Call your doctor later this morning for follow-up appointment this week. Print Language: Yakut Coding Level of Care Code ED Boiler Mechanic for Yasemin Brandt
--- NOTE | 2025-05-28 00:49 | XRR_ITS ---
PROCEDURE INFORMATION: Exam: XR Abdomen Exam date and time: 05/28/2025 12:57 AM Age: 69 years old Clinical indication: Abdominal pain; Generalized; Diffuse abd pain with diarrhea TECHNIQUE: Imaging protocol: Radiologic exam of the abdomen. Views: 2 Views. Upright and supine views. COMPARISON: US renal BI* [id number] 03/13/2024 10:17 AM FINDINGS: Lungs: Left lower lobe pneumonia suspected. Gastrointestinal tract: Mqiw-em-qincmhlq constipation without bowel dilation to indicate obstruction. Intraperitoneal space: Normal. No free air. Bones/joints: Unremarkable for age. XR/XR abdomen min 2V [id number] IMPRESSION: 1. Left lower lobe pneumonia suspected. 2. Dsvc-ev-injgqzai constipation without bowel dilation to indicate obstruction.
--- OUTSIDE RECORDS SUMMARY | 2025-05-28 00:53 | XMS_ITS | Encounter Summary ---
Author Organization [facility] Address [address] [place] [address] Care Team Providers Care Energy Trader Name Role Phone Unavailable Primary Care Provider Unavailabl e Encounter Details Date Type Department Care Team (Latest Contact Info) Description 12/25/2004 Outpatient Historical [facility] [address] [place] [id number] Garry Kathleen MD [address] [place] [address] SPRAIN NOS (Primary Dx) Social History Tobacco Use Types Packs/Day Years Used Date Smoking Tobacco: Never Assessed Sex and Gender Information Value Date Recorded Sex Assigned at Not on file Legal 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
--- OUTSIDE RECORDS SUMMARY | 2025-05-28 00:53 | XMS_ITS | Encounter Summary ---
Author Organization [facility] Address [address] [place] [address] Care Team Providers Care Physics Department Chair Name Role Phone Unavailable Primary Care Provider Unavailabl e Encounter Details Date Type Department Care Team (Latest Contact Info) Description 11/20/2005 Outpatient [facility] [address] [place] [phone] Matthieu Sung, DRAW FURNACE TENDER [address], [place] [id number] Rheumatoid Arthritis (CMS/HCC) (Primary Dx); Other Malaise and Fatigue; Other and Unspecified Hyperlipidemia; Need for Prophylactic Vaccination with Tetanus-Diphtheria (TD) Social History Tobacco Use Types Packs/Day Years Used Date Smoking Tobacco: Never Assessed Sex and Gender Information Value Date Recorded Sex Assigned at Not on file 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
--- OUTSIDE RECORDS SUMMARY | 2025-05-28 00:53 | XMS_ITS | Encounter Summary ---
Author Organization [facility] Address [address] [place] [address] Care Team Providers Care Supervisor Final Name Role Phone Unavailable Primary Care Provider Unavailabl e Encounter Details Date Type Department Care Team (Latest Contact Info) Description 05/05/2004 Outpatient Historical [facility] [address] [place] [phone] Garry Kathleen MD [address] [place] [address] SUPERFICIAL INJURY CORNEA (Primary Dx) Social History Tobacco Use Types Packs/Day Years Used Date Smoking Tobacco: Never Assessed Sex and Gender Information Value Date Recorded Sex Assigned at Not on file 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
--- OUTSIDE RECORDS SUMMARY | 2025-05-28 00:53 | XMS_ITS | Encounter Summary ---
Author Organization [facility] Address [address] [facility] [address] [place] [address] Phone Care Team Providers Care Welding Machine Operator Name Role Phone Alcira Guerra MD Primary Care Provider [phone] Encounter Details Date Type Department Care Team (Late st Contact Info) Description 03/14/2024 Orders Only [facility] [address] [facility] [address] [place] [address] Abnormal renal function Social History Tobacco Use Types Packs/Day Years Used Date Smoking Tobacco: Never Assessed Sex and Gender Information Value Date Recorded Sex Assigned at Not on file Legal Sex Male 9:27 AM EDT Gender Identity Not on file Sexual Orientation Not on file documented as of this encounter Plan of Treatment Upcoming Encounters Date Type Department Care Team (Late st Contact Info) Description 08/23/2025 10: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
--- OUTSIDE RECORDS SUMMARY | 2025-05-28 00:53 | XMS_ITS | Clinical Summary ---
Author Organization [facility] [employer], [facility] Address [address] [facility] [address] [place] [address] Phone Care Team Providers Care Rumper Name Role Phone Alcira Guerra MD Primary Care Provider Allergies Active Allergy Reactions Criticality Noted Date Comments Aspirin 02/12/2025 Cefuroxime 02/12/2025 Penicillins 02/12/2025 Medications albuterol (2.5 MG/3ML) 0.083% nebulizer solution See Instructions, USE 1 VIAL IN NEBULIZER FOUR TIMES DAILY NEEDED FOR WHEEZING, # 75 EA, Refill(s) 11, Pharm[id number] , Instructions Replace Required Details, USE 1 VIAL IN NEBULIZER FOUR TIMES DAILY NEEDED FOR W... 2 Active albuterol HFA (PROVENTIL HFA;VENTOLIN HFA) 108 (90 Base) MCG/ACT inhaler Inhale 2 puffs every 6 (six) hours if needed for shortness of breath or wheezing 2 Active apixaban (ELIQUIS) 5 MG tablet Take 5 mg by mouth in the morning and 5 mg in the evening. 5 Active atenolol (TENORMIN) 100 MG tablet Take 100 mg by mouth 1 (one) time each day 2 Active Cetirizine HCl 10 MG capsule Take 10 mg by mouth 1 (one) time each day 2 Active cyclobenzaprine (FLEXERIL) 10 MG tablet Take 10 mg by mouth 3 (three) times a day if needed for muscle spasms 1 Active Fluticasone-Ume clidin-Vilant 200-62.5-25 MCG/ACT aerosol powder Inhale 1 (one) time each day 2 Active gabapentin (NEURONTIN) 300 MG capsule Take 1 capsule by mouth in the morning and 1 capsule in the evening and 1 capsule before bedtime. 3 Active HYDROcodone-declan taminophen (LORCET PLUS) 10-325 MG per tablet Take 1 tablet by mouth every 6 (six) hours if needed for moderate pain 1 Active tamsulosin (FLOMAX) 0.4 MG 24 hr capsule Take 2 capsules by mouth 1 (one) time each day 2 Active omeprazole (PriLOSEC) [address] capsule 5 Active losartan (Cozaar) 25 MG tablet Take 1 tablet (25 mg total) by mouth 1 (one) time each day 30 tablet 11 5 04/12/20 26 Active Active Problems No known active problems Encounters Date Type Department Care Team Description 04/20/2025 Documentation Only [facility] [address] [place] [phone] Delon Spring MD 04/20/2025 Telephone [facility] [address] [place] [phone] Delon Spring MD 04/12/2025 11:10 AM CDT Office Visit [facility] [address] [place] [address] Delon Spring MD Stage 3b chronic kidney disease (HCC) (Primary Dx) 04/05/2025 Documentation Only [facility] [address] [place] [phone] Carmencita Jenkins MA from Last 3 Months Immunizations Immunization Administration Dates Next Due Influenza Split High Dose Preservative Free IM 1 08/19/2018 Influenza, Unspecified 06/21/2018 Pneumococcal Conjugate 13-Valent 06/19/2019 Pneumococcal Polysaccharide 07/14/2011 TD Preservative Free 10/20/2018,04/04/2008 Family History Medical History Relation Comments Brain tumor Brother Cancer Brother Liver cancer Brother Lung cancer Brother Stroke Brother Tuberculosis Father Cancer Mother Relation Status Comments Brother Father Mother Social History Tobacco Use Types Packs/Day Years Used Date Smoking Tobacco: Former Cigarettes Passive Smoke Exposure: Past Smokeless Tobacco: Never Tobacco Cessation:Counseling Given: Not Answered Alcohol Use Standard Drinks/Week Comments Not Currently 0 (1 standard drink = 0.6 oz pur e alcohol) Sex and Gender Information Value Date Recorded Sex Assigned at Not on file Legal Sex Male 9:27 AM EDT Gender Identity Not on file Sexual Orientation Not on file Last Filed Vital Signs Vital Sign Reading Time Taken Comments Blood Pressure 148/110 04/12/2025 11:01 AM CDT Pulse 48 04/12/2025 11:01 AM CDT Temperature - - Respiratory Rate - - Oxygen Saturation 95% 04/12/2025 11:01 AM CDT Inhaled Oxygen Concentration - - Weight 89.6 kg (197 lb 9.6 oz) 04/12/2025 11:01 AM CDT Height 185.4 cm (6' 1 ) 04/12/2025 11:01 AM CDT Body Mass Index 26.07 04/12/2025 11:01 AM CDT Plan of Treatment Upcoming Encounters Date Type Department Care Team (Late st Contact Info) Description 08/23/2025 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 Office Visit [facility] [address] [place], [place] [phone] Sofiya Siegel, SHAMIR [address] [facility] [address] [place] [phone] Health Maintenance Due Date Last Done Comments Colorectal Cancer Screening: Annual FOBT 2002 Colorectal Cancer Screening: Colonoscopy 2002 Colorectal Cancer Screening: Sigmoidoscopy 2002 Hepatitis B Vaccine (1 of 3 - Risk 3-dose series) 2013 Pneumococcal Vaccine: 50+ Ye ars (3 of 3 - PCV20 or PCV21) 08/14/2019 06/19/2019, 07/14/2011 Influenza Vaccine (#1) 2025 06/19/2019, 2017 Insurance [facility] Medicare Care Teams Rumper Relationship Specialty Start Date End Date Alcira Guerra MD [address] [place] [address] PCP - General Family Medicine 03/14/24
--- OUTSIDE RECORDS SUMMARY | 2025-05-28 00:53 | XMS_ITS | Clinical Summary ---
Author Organization [facility] Address [address] [place] [address] Care Team Providers Care Tile Setter Supervisor Name Role Phone Unavailable Primary Care Provider Unavailabl e Medications amlodipine (NORVASC) 10 mg Oral Tab Take 1 Tab by mouth daily. 30 Tab 3 10/17/2008 Active olmesartan (BENICAR) 40 mg Oral Tab Take 1 Tab by mouth daily. 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 Gender Identity Not on file Sexual Orientation Not on file Last Filed Vital Signs Vital Sign Reading Time Taken Comments Blood Pressure 130/78 04/04/2008 12:00 AM CDT Pulse 60 01/02/2008 12:00 AM CDT Temperature - - Respiratory Rate - - Oxygen Saturation - - Inhaled Oxygen Concentration - - Weight 88.9 kg (196 lb) 04/04/2008 12:00 AM CDT Height - - Body Mass Index - - Plan of Treatment Health Maintenance Due Date Last Done Comments DTAP/TDAP/TD VACCINES (1 - Tdap) 1972 PNEUMOCOCCAL VACCINE 50+ YEARS (1 of 2 - PCV) 07/17/19 72 COLORECTAL SCREENING 1998 Colorectal Cancer Screening 1998 FIT-DNA Q 3 years 1998 FIT/FOBT Q 1 year 1998 Flex Sig/CT Colonography Q 5 years 1998 ZOSTER VACCINE (1 of 2) 2003 INFLUENZA VACCINE (#1) 2025 RSV VACCINE (60+ or ) (1 - 1-dose 75+ series) [address] [place] [address] FEDERATED INSURANCE * Guarantor: [id number] Account Type Relation to Patient Date of Phone Billing Address Workers Comp Employer [employer] [address] WORK[employer]
[2025-05-28 01:04] LABS: Hematocrit 36.4 % (37-53); Hemoglobin 12.10 g/dL (11.27-16.99); Mean Corpuscular HGB Conc 33.2 g/dL (30-55); Mean Corpuscular Hemoglobin 30.6 pg (27-33); Mean Corpuscular Volume 92.2 fl (82-101); Nucleated Red Blood Cells % 0 %; Platelet Count 213 10^3/cmm (157-399); Red Blood Count 3.95 10^6/uL (3.85-5.65); White Blood Count 11.65 10^3/uL (3.29-11.43)
[2025-05-28] MEDS: acetaminophen 1,000 MG/100 ML PIGGYBACK 400 MG IV (01:14)
[2025-05-28] MEDS: ondansetron 2 mg/ML SDV 2 mL 4 MG IVP (01:14)
[2025-05-28 01:18] LABS: Alanine Aminotransferase 11 U/L (0-41); Albumin Level 4.0 g/dL (3.5-5.2); Alkaline Phosphatase 66 U/L (40-130); Anion Gap 15.8 (5-19); Aspartate Amino Transferase 13 U/L (0-40); Blood Urea Nitrogen 27 mg/dL (8-23); Calcium 9.4 mg/dL (8.5-10.5); Carbon Dioxide 25 mmol/L (22-29); Chloride 103 mmol/L (98-107); Creatinine Clr Calc Pharmacy 43.8188; Globulin 2.3 g/dL (1.3-4.6); Glucose 124 mg/dL (65-115); Lipase 31 U/L (13-60); Osmolality Calculated 297 mOsm/kg (285-295); Potassium 3.8 mmol/L (3.5-5.1); Sodium 140 mmol/L (136-145); Total Protein 6.3 g/dL (6.6-8.7)
[2025-05-28 01:31] LABS: Glucose Urine UA Negative (Normal); Nitrate Urine Negative (Negative); Specific Gravity, Urine 1.015 (1.005-1.030)
[2025-05-28 01:35] LABS: Add Urine Microscopic? YES
[2025-05-28 01:42] LABS: Lactic Sepsis W/Reflex 1.8 mmol/L (0.5-2.2)
[2025-05-28 01:49] LABS: Procalcitonin 0.16 ng/mL (0-0.5)
--- NOTE | 2025-05-28 01:49 | XRR_ITS ---
PROCEDURE INFORMATION: Exam: XR Chest Exam date and time: 05/28/2025 1:51 AM Age: 69 years old Clinical indication: Cough and shortness of breath; Cough with SOB; Additional info: SOB cough TECHNIQUE: Imaging protocol: Radiologic exam of the chest. Views: 1 view. COMPARISON: CT chest [facility] [id number] 07/02/2024 10:47 AM FINDINGS: Lungs: Patchy infiltrate within the left mid and lower lung. Pleural spaces: Unremarkable. No pleural effusion. No pneumothorax. Heart/Mediastinum: Heart normal in size when accounting for technique. Bones/joints: Unremarkable. XR/XR chest 1V portable [id number] IMPRESSION: Left lower lung pneumonia.
[2025-05-28] MEDS: levofloxacin-dextrose 5 % 750 MG/150 ML PREMIX 100 MG IV (01:56)
[2025-05-28 02:16] LABS: Respiratory Syncytial Virus Ce NEGATIVE (Negative); SARS-CoV-2 PCR NEGATIVE (Negative)
== END 2025-05-28 03:13 | disposition home or self-care (01) ==
PROVIDERS: Physician Assistant; Emergency Provider Emergency Medicine; PCP Nurse Practitioner Family
DX: J18.8 Other pneumonia, unspecified organism (principal); Z11.52 Encounter for screening for COVID-19; Z79.01 Long term (current) use of anticoagulants; Z87.891 Personal history of nicotine dependence; J44.9 Chronic obstructive pulmonary disease, unspecified; N18.9 Chronic kidney disease, unspecified
CPT/HCPCS: 36415; 71045; 74019; 80053; 81001; 83605; 83690; 84145; 85025; 87040; 87637; 96365; 96375; 99284; J0131; J1956; J2405; J7120

== ENCOUNTER 2025-06-08 13:43 | Outpatient (CLI) | payer MEDICARE, SELFPAY ==
--- NOTE | 2025-06-08 13:53 | XRR_ITS ---
PROCEDURE INFORMATION: Exam: XR Chest Exam date and time: 06/08/2025 2:19 PM Age: 69 years old Clinical indication: Condition or disease; Lung condition and disease; Pneumonia; Bacterial; Additional info: Bacterial pneumonia TECHNIQUE: Imaging protocol: Radiologic exam of the chest. Views: 2 views. COMPARISON: CR (CHEST, ) 05/28/2025 1:51 AM FINDINGS: Lungs: Unremarkable. No consolidation. Pleural spaces: Unremarkable. No pleural effusion. No pneumothorax. Heart/Mediastinum: Cardiac silhouette is prominent. Bones/joints: Unremarkable. XR/XR chest 2V* [id number] IMPRESSION: No acute cardiopulmonary findings.
== END 2025-06-08 13:44 | disposition home or self-care (01) ==
PROVIDERS: PCP Nurse Practitioner Family; Visit Provider Nurse Practitioner Family
DX: J15.9 Unspecified bacterial pneumonia (principal)
CPT/HCPCS: 71046

== ENCOUNTER → 2025-07-19 12:22 | Outpatient (BNVA) | payer MEDICARE, SELFPAY | PROVIDERS: PCP Family Medicine; Visit Provider Family Medicine | DX: I50.22 Chronic systolic (congestive) heart failure (principal); I25.10 Atherosclerotic heart disease of native coronary artery without angina pectoris; R73.01 Impaired fasting glucose | CPT/HCPCS: 80048; 80061; 83036 ==

== ENCOUNTER → 2025-07-25 10:21 | Outpatient (BNVA) | payer MEDICARE, SELFPAY | PROVIDERS: PCP Family Medicine; Referring Provider Nurse Practitioner Family; Visit Provider Internal Medicine | DX: I48.91 Unspecified atrial fibrillation (principal); I13.0 Hypertensive heart and chronic kidney disease with heart failure and stage 1 through stage 4 chronic kidney disease, or unspecified chronic kidney disease; I50.22 Chronic systolic (congestive) heart failure; N18.32 Chronic kidney disease, stage 3b; I42.8 Other cardiomyopathies; Z87.891 Personal history of nicotine dependence | CPT/HCPCS: 99214 ==

== ENCOUNTER 2025-07-31 08:54 | Outpatient (CLI) | payer MEDICARE, SELFPAY ==
--- NOTE | 2025-07-31 09:00 | CT_ITS ---
WS: [id number] LDCT LUNG CANCER SCREENING TECHNIQUE: Noncontrast CT of the chest with coronal and sagittal reformatted images. 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 FINDINGS: Azygous fissure. Small polyp along the distal RIGHT tracheal wall measuring 4.3 mm. Tree-in-bud infiltrates in the RIGHT upper lobe laterally. Tree-in-bud opacities in the lingula and RIGHT lower lobe. Opacities have improved compared to previous. Few scattered subcentimeter tiny nodules Aortic calcification. Dense coronary calcification. No mediastinal or hilar lymphadenopathy. No axillary lymphadenopathy. Small esophageal hernia. Adrenal glands are normal.Moderate thoracic kyphosis. CT/CT lung screening [id number] IMPRESSION: Small polyp along the distal RIGHT tracheal wall measuring 5 mm. This has a rogerio ypoid appearance but may represent mucous or retained secretion. This can be fo llowed up in 1 month to assess persistence and then if persistent recommend pul monology consult in further evaluation for consideration of bronchoscopy. LUNG-RADS: 4A-Probably Suspicious FOLLOW UP: 1 Month LDCT
== END 2025-07-31 08:55 | disposition home or self-care (01) ==
LOC: RAD 08:57
PROVIDERS: PCP Family Medicine; Visit Provider Family Medicine
DX: Z12.2 Encounter for screening for malignant neoplasm of respiratory organs (principal); F17.211 Nicotine dependence, cigarettes, in remission; J39.8 Other specified diseases of upper respiratory tract; J98.4 Other disorders of lung; I25.10 Atherosclerotic heart disease of native coronary artery without angina pectoris; K44.9 Diaphragmatic hernia without obstruction or gangrene; M40.204 Unspecified kyphosis, thoracic region
CPT/HCPCS: 71271